=== PATIENT | male | born 1945 | race Caucasian/White ===

== ENCOUNTER 2022-05-24 19:12 | Inpatient (IN) ==
[2022-05-24] MEDS ORDERED: ACETAMINOPHEN 325 MG TABLET PO ONE (19:30)
[2022-05-24 20:01] LABS: POC Calcium, Ionized 1.05 (1.16-1.32); POC Potassium 2.8 (3.3-5.1)
--- NOTE | 2022-05-24 20:41 | Emergency Department Note ---
HPI General Chief complaint: Fever Stated complaint: Post op fever Time Seen by Provider: 05/24/22 19:27 Source: EMS Mode of arrival: EMS Limitations: physical limitation History of Present Illness HPI Narrative: Narrative: This is a pleasant 76-year-old male that presents emergency department with his daughter and with concerns of fever and confusion. The patient had a left total hip replacement done by Dr. Santana yesterday he stayed the night was discharged this morning and developed a fever he started getting a little confused according to the and daughter. He has been having generalized weakness where they had to call EMS multiple times since they were unable to get him off the toilet since he was so weak he could not stand up on his own. This was not due to increased pain in his left hip this was all due to his muscle weakness. He has been having a fever of about 101 at home. He a lso reports that since the fall he had COVID recovered but had a chronic cough he had white clear sputum for a while but within the last 2 months or so he has noticed that the cough has a sputum that is more greenish-yellow. Patient also has been urinating a lot more today as well. He denies chest pain or trouble breathing abdominal pain he has had some nausea but no vomiting. He denies dysuria or urinary urgency. No diarrhea no black or bloody stools. Related Data Home Medications Medication Instructions Recorded Confirmed cholecalciferol (vitamin D3) 25 2,000 unit PO QDAY 11/29/15 05/23/22 mcg (1,000 unit) tablet docusate sodium 100 mg capsule 100 - 200 mg PO DAILYP PRN 11/29/15 05/23/22 CONSTIPATION glucosamine HCl 1,500 mg tablet 3,000 mg PO QDAY 11/29/15 05/23/22 hydrocodone 7.5 mg-acetaminophen 1 tab PO BIDP PRN Pain 11/29/15 05/23/22 325 mg tablet lisinopril 10 mg tablet 10 mg PO QDAY 11/29/15 05/23/22 nitroglycerin 0.4 mg sublingual 0.4 mg sublingual Q5M PRN Angina 11/29/1505/23 tablet (Nitrostat) olanzapine 2.5 mg tablet 2.5 mg PO QHS 10/08/16 05/23/22 primidone 50 mg tablet 50 mg PO TID 06/03/17 05/23/22 potassium chloride 10 mEq 10 meq PO BIDCC 06/04/18 05/23/22 capsule,extended release rosuvastatin 20 mg tablet 20 mg PO QDAY 06/28/20 05/23/22 hydrochlorothiazide 25 mg tablet 25 mg PO BID@0800,1200 06/07/21 05/23/22 sertraline 100 mg tablet 200 mg PO QAM 06/07/21 05/23/22 cetirizine 10 mg tablet (Zyrtec) 10 mg PO QDAY PRN Allergic Symptoms 08/08/21 05/23/22 fiber 2 cap PO QHS SUPPLEMENT 08/08/21 05/23/22 gabapentin 400 mg capsule 400 mg PO BID@0800,1200 08/08/21 05/23/22 gabapentin 400 mg capsule 800 mg PO QHS 08/08/21 05/23/22 melatonin 10 mg tablet 20 mg PO HS PRN Sleep 08/08/21 05/23/22 multivitamin 1 cap PO DAILY 08/08/21 05/23/22 acetaminophen 325 mg chewable 650 mg PO Q4-6HP PRN Pain 01/30/22 05/23/22 tablet tamsulosin 0.4 mg capsule 0.4 mg PO BID 05/15/22 05/23/22 warfarin 7.5 mg tablet 7.5 mg PO DAILY 05/15/22 05/23/22 Previous Rx's Medication Instructions Recorded mirabegron 50 mg tablet,extended 50 mg PO Q24H #30 tabs 05/08/22 release 24 hr hydrocodone 10 mg-acetaminophen 1 - 2 tab PO Q4H PRN Pain #30 tabs 05/23/22 325 mg tablet warfarin 4 mg tablet 4 mg PO QDAY #5 tabs 05/23/22 Allergies Allergy/AdvReac Type Severity Reaction Status Date / Time naproxen Allergy Unknown Unknown Verified 05/24/22 19:23 propranolol Allergy Unknown Unknown Verified 05/24/22 19:23 simvastatin Allergy Unknown Unknown Verified 05/24/22 19:23 diltiazem AdvReac Mild Other Verified 05/24/22 19:23 metoprolol AdvReac Mild Fatigued Verified 05/24/22 19:23 morphine AdvReac Mild Hallucinati Verified 05/24/22 19:23 ng tape (adhesive & tape) AdvReac Mild Other Uncoded 05/15/22 09:05 Review of Systems ROS ROS Narrative: Narrative: All systems ED: reviewed and negative except as stated. [facility] Narrative Patient History Narrative: Narrative: Medical/Surgical/Family History All Active Problems (Updated 05/24/22 @ 22:10 by Oren Tinoco PA-C) Pneumonia (Acute) S/P total hip arthroplasty (Acute) BPH (benign prostatic hypertrophy) with urinary obstruction (Chronic) HTN (hypertension) (Chronic) CAD (coronary artery disease) (Chronic) History of attempted suicide (Chronic) Overweight (Chronic) Bilateral hand pain (Chronic) Kidney stones (Chronic) Hypertension, essential (Chronic) Hyperlipidemia, mixed (Chronic) Reactive hypoglycemia (Chronic) Arthralgia (Chronic) Cardiomegaly (Chronic) Cyst and pseudocyst of pancreas (Chronic) Chronic pain syndrome (Chronic) Disc degeneration, lumbar (Chronic) Shoulder pain, right (Chronic) Upper extremity pain (Chronic) DJD (degenerative joint disease), cervical (Chronic) Polymyalgia rheumatica (Chronic) Pain in joint, foot, left (Chronic) Bilateral knee pain (Chronic) Voiding dysfunction (Chronic) Urinary hesitancy (Chronic) Other signs and symptoms involving cognition (Chronic) Actinic keratosis (Chronic) Headache (Chronic) GERD (gastroesophageal reflux disease) (Chronic) Facial flushing (Chronic) Major depression, recurrent (Chronic) Hx of myocardial infarction (Chronic) History of skin cancer (Chronic) Left hand pain (Chronic) Urinary urgency (Chronic) Lightheadedness (Chronic) Depression (Chronic) PVC (premature ventricular contraction) (Chronic) Pneumonia (Chronic) Myocardial infarction (Chronic) DVT (deep venous thrombosis) (Chronic) BCC (basal cell carcinoma of skin) (Chronic) Constipation (Chronic) Lumbar back pain (Chronic) Pain, foot, left, chronic (Chronic) Panic disorder (Chronic) Calcium nephrolithiasis (Chronic) Gout (Chronic) Essential and other specified forms of tremor (Chronic) Degeneration of lumbar or lumbosacral intervertebral disc (Chronic) Osteoarthrosis (Chronic) Mcgregor's neuroma (Chronic) Weak urinary stream (Chronic) Uric acid nephrolithiasis (Chronic) SCC (squamous cell carcinoma) (Chronic) Pain in right hip (Chronic) Carpal tunnel syndrome of left wrist (Chronic) Radiculopathy, thoracolumbar region (Chronic) Right knee pain (Chronic) Degenerative joint disease of right hip (Chronic) Degenerative joint disease of right knee (Chronic) Chronic intractable pain (Chronic) Low back pain (Chronic) Urgency incontinence (Chronic) Hematuria, microscopic (Chronic) OAB (overactive bladder) (Chronic) SOB (shortness of breath) (Chronic) Anemia (Chronic) Anxiety (Chronic) Arthritis (Chronic) Back pain (Chronic) Cataract (Chronic) Diverticulitis (Chronic) Edema (Chronic) Fractures (Chronic) Heart murmur (Chronic) History of blood transfusion (Chronic) Hard of hearing (Chronic) History of blood clots (Chronic) History of migraine headaches (Chronic) Pancreatic cyst (Chronic) Prostate enlargement (Chronic) PTSD (post-traumatic stress disorder) (Chronic) Pulmonary emboli (Chronic) Wears glasses (Chronic) Chronic cough (Acute) History of COVID-19 (Chronic) Deep vein thrombosis (Acute) Restrictive lung disease (Chronic) Nocturnal hypoxia (Chronic) Incomplete bladder emptying (Chronic) Left hip pain (Chronic) Deep vein blood clot of left lower extremity (Chronic) Fatigue (Chronic) Medical History Actinic keratosis Anemia Anxiety Arthralgia Arthritis Back pain BCC (basal cell carcinoma of skin) right rad wrist exc 04/07/10 left clavicle exc 06/03/[address]@ Bilateral hand pain Bilateral knee pain BPH (benign prostatic hypertrophy) with urinary obstruction CAD (coronary artery disease) Calcium nephrolithiasis Cardiomegaly Carpal tunnel syndrome of left wrist Cataract Chronic cough Chronic intractable pain Chronic pain syndrome Constipation with the pain medication Cyst and pseudocyst of pancreas Deep vein blood clot of left lower extremity Deep vein thrombosis Degeneration of lumbar or lumbosacral intervertebral disc Degenerative joint disease of right hip Degenerative joint disease of right knee Depression Hospitalized for depression in 2015. Previous meds include nortriptyline, prozac, bupropion, serzone, ability, imipramine. Disc degeneration, lumbar with neurological manifestation Diverticulitis DJD (degenerative joint disease), cervical with neuropathy DVT (deep venous thrombosis) and pulmonary embolus-post op complication-treated with thrombolysis and vena cava filter Edema Essential and other specified forms of tremor Facial flushing Fatigue Fractures Right great toe GERD (gastroesophageal reflux disease) Gout Hard of hearing Bilateral hearing aids Headache Heart murmur Comes and goes Hematuria, microscopic History of attempted suicide History of blood clots Post IVC filter reportedly removed. History of blood transfusion History of COVID-19 History of migraine headaches History of skin cancer HTN (hypertension) Hx of myocardial infarction Hyperlipidemia, mixed Hypertension, essential Kidney stones Left hand pain Left hip pain Lightheadedness Low back pain Lumbar back pain Major depression, recurrent Severe Mcgregor's neuroma Myocardial infarction Nocturnal hypoxia OAB (overactive bladder) Osteoarthrosis Other signs and symptoms involving cognition Overweight Pain in joint, foot, left Pain in right hip Pain, foot, left, chronic Pancreatic cyst Panic disorder Pneumonia Polymyalgia rheumatica Prostate enlargement PTSD (post-traumatic stress disorder) Pulmonary emboli PVC (premature ventricular contraction) Benign isolated 2014 Radiculopathy, thoracolumbar region Reactive hypoglycemia Restrictive lung disease Right knee pain SCC (squamous cell carcinoma) Right forearm exc 12/17/09 Inaifu [address] z[address]omatic arch [address]2 x 2 exc 03/08/11 Lt pre auric exc 06/08/13 Shoulder pain, right SOB (shortness of breath) Upper extremity pain Urgency incontinence Uric acid nephrolithiasis Urinary hesitancy Urinary urgency Voiding dysfunction Weak urinary stream Wears glasses Surgical History History of arthroscopy of left shoulder History of cardiac catheterization History of carpal tunnel release Right Wrist History of carpal tunnel surgery Left hand 2015 History of cholecystectomy History of colonoscopy 07/2010- repeat in 10 years History of cystoscopy History of esophageal dilatation History of lithotripsy History of prostate surgery x 2-one complicated by DVT and delayed bleed from anticoagulation History of surgery Repair herniated lumbar disc 1972 History of surgery 03/2015 anterior disecectomy History of surgery Bilateral foraminotomy C5-6 and C6-7 with fusion History of surgery Repair herniated lumbar disc 1971, 1979 History of surgery Urolithotomy History of surgery Removal of Precancerous Skin Cells from Left Ear 05/2016. Also from face, neck and back History of surgery Fissurectomy History of surgery SCS perm History of surgery Vena Cava filter placement History of tonsillectomy History of transurethral resection of prostate 2013 History of umbilical hernia repair Status post endoscopic retrograde cholangiopancreatography Status post excision of Mcgregor's neuroma 4 surgeries, left foot - chronic pain as a result Family History Family/Other Hypertension CAD (coronary artery disease) Diabetes mellitus, type II Mother Depression Hypertension CAD (coronary artery disease) Heart failure Daughter Depression Thyroid disease Father CAD (coronary artery disease) Blood clot in vein Social History Smoking Status: Never smoker Alcohol Intake Frequency: former alcohol drinker Substance Use: does not use Exam Narrative Narrative: Narrative: General: Alert, in no acute distress Head: No trauma normocephalic Eyes: PERRLA, EOMs intact no scleral icterus or scleral injection Neck: Full range of motion, no midline tenderness ENT: Moist mucous membranes, uvula is midline. No sign of peritonsillar abscess or Cheikh's angina. Cardiovascular: Regular rate and rhythm no murmur Respiratory: Mild tachypnea, there is a bilateral lower lobe Rales. Mild tachypnea, no respiratory distress Abdomen pelvis: Abdomen is soft and nontender to palpation. There is no guarding no rebound tenderness. Negative Colmenares sign. No tenderness over McBurney's point. Neuro: Patient is alert and oriented x3 Psych: Normal affect, normal mood Skin: Warm, no rash, normal color Extremity: I did attempt to look at the incision of the left hip which is covered with a bandage they were told not to take it off. I do not see any erythema extending from underneath the bandage. Back: Negative CVA tenderness bilaterally. General Limitations: physical limitation Course Vital Signs Vital signs: Vital Signs Temperature 101.3 F H 05/24/22 19:18 Pulse Rate 96 H 05/24/22 19:18 Respiratory Rate 18 05/24/22 19:18 Blood Pressure 126/60 05/24/22 19:18 Pulse Oximetry (%) 95 05/24/22 19:18 Oxygen Delivery Method Room Air 05/24/22 19:18 Temperature 101.3 F H 05/24/22 19:56 Pulse Rate 85 05/24/22 20:01 Respiratory Rate 18 05/24/22 19:18 Blood Pressure 114/52 05/24/22 20:01 Pulse Oximetry (%) 96 05/24/22 20:01 Oxygen Delivery Method Room Air 05/24/22 19:18 MDM MDM Narrative Medical decision making narrative: Narrative: Differential diagnosis: UTI, pneumonia, sepsis, postoperative infection Independent lab ordered and reviewed by me: CBC shows leukocytosis at nearly 17,000 with left shift patient has a slightly alkalotic on VBG The [id number] Chem-8 shows mild hypokalemia at 2.8. [id number] glucose 178 UA does not show any sign of infection Rapid influenza and COVID negative Medications ordered: 1 L of normal saline Tylenol Rocephin and azithromycin Chest x-ray shows bilateral lower lobe consolidations left worse than right on my read. Disposition decision making CURB-65 Score for Pneumonia Severity from [email or web address] on 05/24/2022 All calculations should be rechecked by clinician prior to use RESULT SUMMARY: 3 points Severe risk group: 14.0% 30-day mortality. Consider inpatient treatment with possible intensive care admission. INPUTS: Confusion > 1 = Yes BUN >19 mg/dL (>7 mmol/L urea) > 0 = No Respiratory Rate &ge;30 > 0 = No Systolic BP <90 mmHg or Diastolic BP &le;60 mmHg > 1 = Yes Age &ge;65 > 1 = Yes With the patient's confusion hypotension and age the patient is in a high risk group for pneumonia going home. For that reason we will admit the patient. He is having some low blood pressure which we have started a liter of normal saline as well. We have also started Rocephin and azithromycin for community-acquired pneumonia. I spoke with Dr. Feliciano the hospitalist and he agreed to admit the patient for further evaluation and treatment of pneumonia. He will be sent to the PCU. Lab Data 05/24/22 19:41 Labs: Lab Results 05/24/22 05/24/22 Range/Units 19:54 19:58 POC Hct 34.0 L (41-55) POC VBG pH 7.51 H (7.32-7.42) POC VBG pCO2 at Temp 32.5 L (41-51) POC VBG pO2 61 H (25-40) POC VBG HCO3 26.1 (24-28) POC VBG Total CO2 27.0 (25-29) POC Venous O2 Sat 93.0 H (40-70) POC VBG Base Excess 3.0 H (-2-2) VBG Lactic Acid 1.4 (0.5-2) POC Sodium 137 (133-145) POC Potassium 2.8 L* (3.3-5.1) POC Chloride 100 (96-108) POC Total CO2 26.0 (22-30) POC BUN 12 (6-20) POC Creatinine 1.0 (0.6-1.2) POC Glucose 178 H (70-105) POC WB Ioniz Calcium 1.05 L (1.16-1.32) ED POC Tests ED POC Tests: TAY - Influenza A Negative TAY - Influenza B Negative TAY - SARS Antigen Negative EKG Data EKG #1: EKG results narrative: ECG shows a sinus rhythm 85 beats minute, left axis deviation, normal CA interval narrow QRS and QTc is prolonged. There is no ST segment deviations or hyperacute T waves. My interpretation is sinus rhythm with PACs. Discharge Plan Patient/Caregiver Discharge Instructions Pt seen by INFECTION PREVENTION COORDINATOR/PA only: Yes Clinical Impression: Pneumonia Patient Disposition: Xfer As Inpt ([facility]) Condition: Serious Follow up with: Stefany Lord MD [Primary Care Provider] - Prescriptions: No Action lisinopril 10 mg tablet 10 mg PO QDAY hydrocodone-acetaminophen 7.5-325 mg tablet 1 tab PO BIDP PRN (Reason: Pain) Patient Comments: 1 tab PO BID PRN and at HS nitroglycerin [Nitrostat] 0.4 mg tablet, sublingual 0.4 mg SUBLINGUAL Q5M PRN (Reason: Angina) Patient Comments: 0.4 mg SUBLINGUAL PRN chest pain, can repeat at 5 min intervals to max of 3, ER if pain persists docusate sodium 100 mg capsule 100 - 200 mg PO DAILYP PRN (Reason: CONSTIPATION) Patient Comments: 1-2 capsules PO QDAY PRN cholecalciferol (vitamin D3) 1,000 unit tablet 2,000 unit PO QDAY glucosamine HCl 1,500 mg tablet 3,000 mg PO QDAY sertraline 100 mg tablet 200 mg PO QAM acetaminophen 325 mg tablet,chewable 650 mg PO Q4-6HP PRN (Reason: Pain) gabapentin 400 mg Capsule 400 mg PO BID@0800,1200 gabapentin 400 mg Capsule 800 mg PO QHS cetirizine [Zyrtec] 10 mg Tablet 10 mg PO QDAY PRN (Reason: Allergic Symptoms) multivitamin Capsule 1 cap PO DAILY fiber Capsule 2 cap PO QHS melatonin 10 mg Tablet 20 mg PO HS MDD 1 PRN (Reason: Sleep) warfarin 7.5 mg Tablet 7.5 mg PO DAILY tamsulosin 0.4 mg capsule 0.4 mg PO BID hydrocodone-acetaminophen 10-325 mg tablet 1 - 2 tab PO Q4H PRN (Reason: Pain) Qty: 30 0RF warfarin 4 mg tablet 4 mg PO QDAY Qty: 5 0RF Rx Instructions: take for 5 days post op, then may resume home dose regimen of 7.5 mg. olanzapine 2.5 mg tablet 2.5 mg PO QHS primidone 50 mg tablet 50 mg PO TID hydrochlorothiazide 25 mg tablet 25 mg PO BID@0800,1200 potassium chloride 10 mEq capsule, extended release 10 meq PO BIDCC rosuvastatin 20 mg tablet 20 mg PO QDAY mirabegron 50 mg tablet extended release 24 hr 50 mg PO Q24H Qty: 30 6RF
[2022-05-24] MEDS ORDERED: 0.9 % SODIUM CHLORIDE 1,000 ML IV ONE ×2 (21:09→22:08)
[2022-05-24 21:43] LABS: Basophils # (Auto) 0.04 K/mcL (0.00-0.30); Basophils % (Auto) 0.2 % (0.0-2.0); Eosinophils # (Auto) 0.04 K/mcL (0.00-0.70); Eosinophils % (Auto) 0.2 % (0.0-7.0); Hematocrit 32.7 % (40.1-51.0); Hemoglobin 10.9 g/dL (13.7-17.5); Lymphocytes # (Auto) 2.47 K/mcL (1.50-4.80); Lymphocytes % (Auto) 14.7 % (15.5-49.0); Mean Cell Volume 91.3 fL (80.0-100.0); Mean Corpuscular HGB Conc 33.3 g/dL (31.0-36.0); Mean Platelet Volume 10.6 fL (8.8-12.5); Monocytes # (Auto) 1.26 K/mcL (0.10-0.90); Monocytes % (Auto) 7.5 % (1.0-12.0); Neutrophils % (Auto) 76.2 % (38.0-78.0); Platelet Count 185 K/mcL (140-440); RBC 3.58 M/mcL (4.63-6.08); Red Cell Distribution Width 13.5 % (11.5-14.5); WBC 16.9 K/mcL (4.5-11.0)
[2022-05-24] MEDS ORDERED: cefTRIAXone 1 GM VIAL IV ONE (21:47)
[2022-05-24] MEDS ORDERED: AZITHROMYCIN 500 MG in DEXTROSE 5% IN WATER 250 ML IV ONE (21:47)
[2022-05-24 21:49] LABS: Appearance,Urine HAZY (Clear); Bilirubin,Urine Negative (Negative); Color,Urine YELLOW; Culture Indicated,Urine No; Glucose,Urine (UA) Negative (Negative); Ketones,Urine Negative (Negative); Leukocyte Esterase,Urine Negative /uL (Negative); Nitrate,Urine Negative (Negative); Protein,Urine Negative (Negative); Specific Gravity,Urine 1.016 (1.000-1.035); Urine Blood Negative (Negative); Urobilinogen,Urine Negative
[2022-05-24 21:52] LABS: ALT/SGPT 14 U/L (<40); AST/SGOT 32 U/L (<40); Albumin 3.6 gm/dL (3.2-5.2); Alkaline Phosphatase 84 U/L (39-117); Bilirubin,Direct < 0.2 mg/dL (0-0.3); Bilirubin,Total 0.5 mg/dL (0.1-1.0); Globulin 2.7 gm/dL (2.2-3.7)
[2022-05-24 22:27] LABS: Prothrombin Time 13.9 sec (11.9-14.5)
--- NOTE | 2022-05-24 22:54 | Internal Med History&Physical ---
HPI History of Present Illness Patient information: Note initiated : 05/24/22 at 10:51 pm Service Date, if different from initiated Date: [] Patient: Yunior Jo 76 y/o M admitted on for Post op fever. Chief Complaint: [weakness] Chief complaint: weakness History of present illness: Mr. 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 Santana on 05/23 who was discharged home the next day on 05/24, presenting with general body weakness. Patient was being discharged from earlier today from the surgical service feeling good but once he returned home, he started to feel general body weakness. He also is complaining of productive cough with yellow sputum for the last month or 2. He is now also complaining of shortness of breath. He is complaining of fever and chills. He is also committing of confusions. Vital signs at ED presentation significant for fever with Tmax 38.5, as well as soft blood pressure as low as 96 over 45 mmHg. Labs significant for leukocytosis with WBC 16.9. Serum lactic acid 1.4. Serum potassium level 2.8. Serum procalcitonin level 0.24. COVID screening negative. Chest x-ray preliminary result showing signs of bacterial pneumonia. Admission request is called for hospital-acquired pneumonia with associated clinical sepsis. Constitutional Constitutional: Present chills, fever(s) and weakness; Absent excessive sweating or fatigue EENT Eyes: Absent blurry vision, change in vision, loss of vision or other visual disturbances Ears: Absent decreased hearing or tinnitus Nose, mouth and throat: Absent abnormal hearing, dry mouth, headache(s), nasal congestion or sore throat Cardiovascular Cardiovascular: Absent chest pain, chest pain at rest, edema, irregular heart rhythm or palpatations Respiratory Respiratory: Present cough, dyspnea, wheezing and excessive phlegm production Gastrointestinal Gastrointestinal: Absent abdominal pain, constipation, diarrhea, nausea or vomiting Musculoskeletal Musculoskeletal: Present arthralgias; Absent back pain, deformity, limited range of motion, muscle cramps, muscle weakness or numbness Integumentary Integumentary: Absent lesions, rash or wounds Neurological Neurological: Absent focal weakness, headache(s) or numbness Psychiatric Psychiatric: Absent anxiety, depression or hallucinations PFSH PFSH All Active Problems (Updated 05/24/22 @ 22:58 by Tobi Feliciano MD) Hypokalemia (Acute) Anemia, normocytic normochromic (Acute) HAP (hospital-acquired pneumonia) (Acute) Pneumonia (Acute) S/P total hip arthroplasty (Acute) BPH (benign prostatic hypertrophy) with urinary obstruction (Chronic) HTN (hypertension) (Chronic) CAD (coronary artery disease) (Chronic) History of attempted suicide (Chronic) Overweight (Chronic) Bilateral hand pain (Chronic) Kidney stones (Chronic) Hypertension, essential (Chronic) Hyperlipidemia, mixed (Chronic) Reactive hypoglycemia (Chronic) Arthralgia (Chronic) Cardiomegaly (Chronic) Cyst and pseudocyst of pancreas (Chronic) Chronic pain syndrome (Chronic) Disc degeneration, lumbar (Chronic) Shoulder pain, right (Chronic) Upper extremity pain (Chronic) DJD (degenerative joint disease), cervical (Chronic) Polymyalgia rheumatica (Chronic) Pain in joint, foot, left (Chronic) Bilateral knee pain (Chronic) Voiding dysfunction (Chronic) Urinary hesitancy (Chronic) Other signs and symptoms involving cognition (Chronic) Actinic keratosis (Chronic) Headache (Chronic) GERD (gastroesophageal reflux disease) (Chronic) Facial flushing (Chronic) Major depression, recurrent (Chronic) Hx of myocardial infarction (Chronic) History of skin cancer (Chronic) Left hand pain (Chronic) Urinary urgency (Chronic) Lightheadedness (Chronic) Depression (Chronic) PVC (premature ventricular contraction) (Chronic) Pneumonia (Chronic) Myocardial infarction (Chronic) DVT (deep venous thrombosis) (Chronic) BCC (basal cell carcinoma of skin) (Chronic) Constipation (Chronic) Lumbar back pain (Chronic) Pain, foot, left, chronic (Chronic) Panic disorder (Chronic) Calcium nephrolithiasis (Chronic) Gout (Chronic) Essential and other specified forms of tremor (Chronic) Degeneration of lumbar or lumbosacral intervertebral disc (Chronic) Osteoarthrosis (Chronic) Mcgrgeor's neuroma (Chronic) Weak urinary stream (Chronic) Uric acid nephrolithiasis (Chronic) SCC (squamous cell carcinoma) (Chronic) Pain in right hip (Chronic) Carpal tunnel syndrome of left wrist (Chronic) Radiculopathy, thoracolumbar region (Chronic) Right knee pain (Chronic) Degenerative joint disease of right hip (Chronic) Degenerative joint disease of right knee (Chronic) Chronic intractable pain (Chronic) Low back pain (Chronic) Urgency incontinence (Chronic) Hematuria, microscopic (Chronic) OAB (overactive bladder) (Chronic) SOB (shortness of breath) (Chronic) Anemia (Chronic) Anxiety (Chronic) Arthritis (Chronic) Back pain (Chronic) Cataract (Chronic) Diverticulitis (Chronic) Edema (Chronic) Fractures (Chronic) Heart murmur (Chronic) History of blood transfusion (Chronic) Hard of hearing (Chronic) History of blood clots (Chronic) History of migraine headaches (Chronic) Pancreatic cyst (Chronic) Prostate enlargement (Chronic) PTSD (post-traumatic stress disorder) (Chronic) Pulmonary emboli (Chronic) Wears glasses (Chronic) Chronic cough (Acute) History of COVID-19 (Chronic) Deep vein thrombosis (Acute) Restrictive lung disease (Chronic) Nocturnal hypoxia (Chronic) Incomplete bladder emptying (Chronic) Left hip pain (Chronic) Deep vein blood clot of left lower extremity (Chronic) Fatigue (Chronic) Medical History Actinic keratosis Anemia Anxiety Arthralgia Arthritis Back pain BCC (basal cell carcinoma of skin) right rad wrist exc 04/07/10 left clavicle exc 06/03/[address]@ Bilateral hand pain Bilateral knee pain BPH (benign prostatic hypertrophy) with urinary obstruction CAD (coronary artery disease) Calcium nephrolithiasis Cardiomegaly Carpal tunnel syndrome of left wrist Cataract Chronic cough Chronic intractable pain Chronic pain syndrome Constipation with the pain medication Cyst and pseudocyst of pancreas Deep vein blood clot of left lower extremity Deep vein thrombosis Degeneration of lumbar or lumbosacral intervertebral disc Degenerative joint disease of right hip Degenerative joint disease of right knee Depression Hospitalized for depression in 2014. Previous meds include nortriptyline, prozac, bupropion, serzone, ability, imipramine. Disc degeneration, lumbar with neurological manifestation Diverticulitis DJD (degenerative joint disease), cervical with neuropathy DVT (deep venous thrombosis) and pulmonary embolus-post op complication-treated with thrombolysis and vena cava filter Edema Essential and other specified forms of tremor Facial flushing Fatigue Fractures Right great toe GERD (gastroesophageal reflux disease) Gout Hard of hearing Bilateral hearing aids Headache Heart murmur Comes and goes Hematuria, microscopic History of attempted suicide History of blood clots Post IVC filter reportedly removed. History of blood transfusion History of COVID-19 History of migraine headaches History of skin cancer HTN (hypertension) Hx of myocardial infarction Hyperlipidemia, mixed Hypertension, essential Kidney stones Left hand pain Left hip pain Lightheadedness Low back pain Lumbar back pain Major depression, recurrent Severe Mcgregor's neuroma Myocardial infarction Nocturnal hypoxia OAB (overactive bladder) Osteoarthrosis Other signs and symptoms involving cognition Overweight Pain in joint, foot, left Pain in right hip Pain, foot, left, chronic Pancreatic cyst Panic disorder Pneumonia Polymyalgia rheumatica Prostate enlargement PTSD (post-traumatic stress disorder) Pulmonary emboli PVC (premature ventricular contraction) Benign isolated 2014 Radiculopathy, thoracolumbar region Reactive hypoglycemia Restrictive lung disease Right knee pain SCC (squamous cell carcinoma) Right forearm exc 12/17/09 In[place] [address] z[address]omatic arch [address]2 x 2 exc 03/08/11 Lt pre auric exc 06/08/13 Shoulder pain, right SOB (shortness of breath) Upper extremity pain Urgency incontinence Uric acid nephrolithiasis Urinary hesitancy Urinary urgency Voiding dysfunction Weak urinary stream Wears glasses Surgical History History of arthroscopy of left shoulder History of cardiac catheterization History of carpal tunnel release Right Wrist History of carpal tunnel surgery Left hand 2016 History of cholecystectomy History of colonoscopy 07/2010- repeat in 10 years History of cystoscopy History of esophageal dilatation History of lithotripsy History of prostate surgery x 2-one complicated by DVT and delayed bleed from anticoagulation History of surgery Repair herniated lumbar disc 1972 History of surgery 03/2015 anterior disecectomy History of surgery Bilateral foraminotomy C5-6 and C6-7 with fusion History of surgery Repair herniated lumbar disc 1971, 1979 History of surgery Urolithotomy History of surgery Removal of Precancerous Skin Cells from Left Ear 05/2016. Also from face, neck and back History of surgery Fissurectomy History of surgery SCS perm History of surgery Vena Cava filter placement History of tonsillectomy History of transurethral resection of prostate 2013 History of umbilical hernia repair Status post endoscopic retrograde cholangiopancreatography Status post excision of Mcgregor's neuroma 4 surgeries, left foot - chronic pain as a result Family History Family/Other Hypertension CAD (coronary artery disease) Diabetes mellitus, type II Mother Depression Hypertension CAD (coronary artery disease) Heart failure Daughter Depression Thyroid disease Father CAD (coronary artery disease) Blood clot in vein Social History marital status: education level: college occupational status: retired occupation: Served in [employer]; [place] physical activity: other details: stationary bicycling smoking status: Never smoker alcohol intake frequency: former alcohol drinker substance use type: does not use MEDS/ALLERGIES Home Medications and Allergies Home Medications Medication Instructions Recorded Confirmed Type cholecalciferol (vitamin D3) 25 2,000 unit PO QDAY 11/29/15 05/23/22 History mcg (1,000 unit) tablet docusate sodium 100 mg capsule 100 - 200 mg PO DAILYP PRN 11/29/15 05/23/22 History CONSTIPATION glucosamine HCl 1,500 mg tablet 3,000 mg PO QDAY 11/29/15 05/23/22 History hydrocodone 7.5 mg-acetaminophen 1 tab PO BIDP PRN Pain 11/29/15 05/23/22 History 325 mg tablet lisinopril 10 mg tablet 10 mg PO QDAY 11/29/15 05/23/22 History nitroglycerin 0.4 mg sublingual 0.4 mg sublingual Q5M PRN Angina 11/29/15 05/23/22 History tablet (Nitrostat) olanzapine 2.5 mg tablet 2.5 mg PO QHS 10/08/16 05/23/22 History primidone 50 mg tablet 50 mg PO TID 06/03/17 05/23/22 History potassium chloride 10 mEq 10 meq PO BIDCC 06/04/18 05/23/22 History capsule,extended release rosuvastatin 20 mg tablet 20 mg PO QDAY 06/28/20 05/23/22 History hydrochlorothiazide 25 mg tablet 25 mg PO BID@0800,1200 06/07/21 05/23/22 History sertraline 100 mg tablet 200 mg PO QAM 06/07/21 05/23/22 History cetirizine 10 mg tablet (Zyrtec) 10 mg PO QDAY PRN Allergic Symptoms 08/08/21 05/23/22 History fiber 2 cap PO QHS SUPPLEMENT 08/08/21 05/23/22 History gabapentin 400 mg capsule 400 mg PO BID@0800,1200 08/08/21 05/23/22 History gabapentin 400 mg capsule 800 mg PO QHS 08/08/21 05/23/22 History melatonin 10 mg tablet 20 mg PO HS PRN Sleep 08/08/21 05/23/22 History multivitamin 1 cap PO DAILY 08/08/21 05/23/22 History acetaminophen 325 mg chewable 650 mg PO Q4-6HP PRN Pain 01/30/22 05/23/22 History tablet mirabegron 50 mg tablet,extended 50 mg PO Q24H #30 tabs 05/08/22 05/23/22 Rx release 24 hr tamsulosin 0.4 mg capsule 0.4 mg PO BID 05/15/22 05/23/22 History warfarin 7.5 mg tablet 7.5 mg PO DAILY 05/15/22 05/23/22 History hydrocodone 10 mg-acetaminophen 1 - 2 tab PO Q4H PRN Pain #30 tabs 05/23/22 Rx 325 mg tablet warfarin 4 mg tablet 4 mg PO QDAY #5 tabs 05/23/22 Rx Allergies Allergy/AdvReac Type Severity Reaction Status Date / Time naproxen Allergy Unknown Unknown Verified 05/24/22 19:23 propranolol Allergy Unknown Unknown Verified 05/24/22 19:23 simvastatin Allergy Unknown Unknown Verified 05/24/22 19:23 diltiazem AdvReac Mild Other Verified 05/24/22 19:23 metoprolol AdvReac Mild Fatigued Verified 05/24/22 19:23 morphine AdvReac Mild Hallucinati Verified 05/24/22 19:23 ng tape (adhesive & tape) AdvReac Mild Other Uncoded 05/15/22 09:05 EXAM Constitutional Vitals: Temp Pulse Resp BP Pulse Ox O2 Del Method 38.5 C H 70 18 96/45 97 Room Air 05/24/22 19:56 05/24/22 22:16 05/24/22 19:18 05/24/22 22:16 05/24/22 22:16 05/24/22 19:18 General appearance: cooperative and no acute distress Head Head exam: Present atraumatic and normocephalic Eye Eye exam: Present EOMI and PERRL ENT ENT exam: Present mucous membranes moist, normal exam and normal external ear exam Additional comments: Nasal cannula in place Neck Neck exam: Present normal inspection; Absent lymphadenopathy, tenderness or th yromegaly Respiratory Respiratory exam: Present rhonchi and wheezes; Absent accessory muscle use or respiratory distress Cardiovascular Cardiovascular exam: Present normal rate and rhythm; Absent JVD GI/Abdominal GI/Abdominal exam: Present normal bowel sounds and soft; Absent organomegaly or tenderness Rectal Rectal exam: Present deferred Extremities Exam Extremities exam: Present normal capillary refill and tenderness; Absent full ROM or normal inspection Additional comments: Left lateral hip covered by surgical dressing Neurological Exam Neurological exam: Present alert, CN II-XII intact and oriented X3; Absent motor sensory deficit Psychiatric Psychiatric exam: Present normal affect and normal mood; Absent anxious or depressed Skin Skin exam: Present dry and intact DATA Data Completed and Pending Labs: Labs from last 24 hours 05/24/22 05/24/22 05/24/22 20:45 20:45 19:58 WBC RBC Hgb Hct POC Hct 34.0 L MCV MCH MCHC RDW Plt Count MPV Immature Gran % (Auto) Neut % (Auto) Lymph % (Auto) Armstrong % (Auto) Eos % (Auto) Baso % (Auto) Lymph # (Auto) Armstrong # (Auto) Eos # (Auto) Baso # (Auto) Immature Gran # Absolute Neutrophils PT 13.9 INR 1.0 POC VBG pH POC VBG pCO2 at Temp POC VBG pO2 POC VBG HCO3 POC VBG Total CO2 POC Venous O2 Sat POC VBG Base Excess VBG Lactic Acid POC Sodium 137 POC Potassium 2.8 L* POC Chloride 100 POC Total CO2 26.0 POC BUN 12 POC Creatinine 1.0 POC Glucose 178 H POC WB Ioniz Calcium 1.05 L Total Bilirubin Direct Bilirubin AST ALT Alkaline Phosphatase Total Protein Albumin Globulin Procalcitonin Urine Color Yellow Urine Appearance Hazy A Urine pH 5.0 Ur Specific [place] 1.016 Urine Protein Negative Urine Glucose (UA) Negative Urine Ketones Negative Urine Occult Blood Negative Urine Nitrate Negative Urine Bilirubin Negative Urine Urobilinogen Negative Ur Leukocyte Esterase Negative Ur Culture Indicated? No 05/24/22 05/24/22 05/24/22 19:54 19:41 19:41 WBC RBC Hgb Hct POC Hct MCV MCH MCHC RDW Plt Count MPV Immature Gran % (Auto) Neut % (Auto) Lymph % (Auto) Armstrong % (Auto) Eos % (Auto) Baso % (Auto) Lymph # (Auto) Armstrong # (Auto) Eos # (Auto) Baso # (Auto) Immature Gran # Absolute Neutrophils PT INR POC VBG pH 7.51 H POC VBG pCO2 at Temp 32.5 L POC VBG pO2 61 H POC VBG HCO3 26.1 POC VBG Total CO2 27.0 POC Venous O2 Sat 93.0 H POC VBG Base Excess 3.0 H VBG Lactic Acid 1.4 POC Sodium POC Potassium POC Chloride POC Total CO2 POC BUN POC Creatinine POC Glucose POC WB Ioniz Calcium Total Bilirubin 0.5 Direct Bilirubin < 0.2 AST 32 ALT 14 Alkaline Phosphatase 84 Total Protein 6.3 Albumin 3.6 Globulin 2.7 Procalcitonin 0.24 H Urine Color Urine Appearance Urine pH Ur Specific [place] Urine Protein Urine Glucose (UA) Urine Ketones Urine Occult Blood Urine Nitrate Urine Bilirubin Urine Urobilinogen Ur Leukocyte Esterase Ur Culture Indicated? 05/24/22 19:41 WBC 16.9 H RBC 3.58 L Hgb 10.9 L Hct 32.7 L POC Hct MCV 91.3 MCH 30.4 MCHC 33.3 RDW 13.5 Plt Count 185 MPV 10.6 Immature Gran % (Auto) 1.2 H Neut % (Auto) 76.2 Lymph % (Auto) 14.7 L Armstrong % (Auto) 7.5 Eos % (Auto) 0.2 Baso % (Auto) 0.2 Lymph # (Auto) 2.47 Armstrong # (Auto) 1.26 H Eos # (Auto) 0.04 Baso # (Auto) 0.04 Immature Gran # 0.20 H Absolute Neutrophils 12.84 H PT INR POC VBG pH POC VBG pCO2 at Temp POC VBG pO2 POC VBG HCO3 POC VBG Total CO2 POC Venous O2 Sat POC VBG Base Excess VBG Lactic Acid POC Sodium POC Potassium POC Chloride POC Total CO2 POC BUN POC Creatinine POC Glucose POC WB Ioniz Calcium Total Bilirubin Direct Bilirubin AST ALT Alkaline Phosphatase Total Protein Albumin Globulin Procalcitonin Urine Color Urine Appearance Urine pH Ur Specific [place] Urine Protein Urine Glucose (UA) Urine Ketones Urine Occult Blood Urine Nitrate Urine Bilirubin Urine Urobilinogen Ur Leukocyte Esterase Ur Culture Indicated? A/P Assessment and plan (1) HAP (hospital-acquired pneumonia): Status: Acute (2) S/P total hip arthroplasty: Status: Acute (3) BPH (benign prostatic hypertrophy) with urinary obstruction: Status: Chronic (4) Hypertension, essential: Status: Chronic (5) Major depression, recurrent: Status: Chronic Comment: Severe (6) DVT (deep venous thrombosis): Status: Chronic Comment: and pulmonary embolus-post op complication-treated with thrombolysis and vena cava filter (7) Anemia, normocytic normochromic: Status: Acute (8) Hypokalemia: Status: Acute Sepsis Sepsis Identified: Yes Time Zero: . Narrative A/P Narrative: Assessment and Plans: 1. Hospital acquired pneumonia with clinical sepsis: Inpatient PCU Serial lactic acid Procalcitonin level Blood culture MRSA screening cbc w/ auto diff in the morning to trend WBC Supplemental oxygen therapy Vancomycin Zosyn s/p IV fluid bolus given in the ED, to be followed by NS@100cc/hr Physical therapy 2. h/o osteoarthritis s/p left total hip replacement Dr. Callahan on 05/23: Tylenol [place] Morphine Physical therapy 3. Depression/anxiety: Sertraline Olanzapine 4. h/o essential hypertension: Hold oral antihypertensive given clinical sepsis 5. BPH: Continue Flomax 6. h/o DVT, multiple: Coumadin Daily INR for Coumadin dosing, goal INR 2-3 7. Anemia, normocytic normochromic: cbc w/ auto diff in the morning to trend H/H 8. Hypokalemia: K rider 20mEq IV once, then KCl 20mEq PO BID starting in the morning of 05/25 CMP in the morning to trend serum potassium level Also check serum Mg level and replace if needed GI ppx: not currently indicated DVT ppx: Coumadin Code status: Full Prognosis: guarded Disposition: inpatient PCU; PT Time Spent With Patient Time: Total time spent is greater than 50% in coordination of care (as documented) at patient's floor/unit and/or counseling patient: Initial: Total time with patient: 55 - 74 minutes
[2022-05-25] MEDS ORDERED: SENNOSIDES 1 TABLET PO PRN (00:19)
[2022-05-25] MEDS ORDERED: IPRATROPIUM/ALBUTEROL 3 ML AMPUL.NEB NEB PRN (00:19)
[2022-05-25] MEDS ORDERED: guaiFENesin/DEXTROMETHORPHAN 5ML UD CUP PO PRN (00:19)
[2022-05-25] MEDS ORDERED: LACTULOSE 20 GM/30 ML ORAL.SOL PO PRN (00:19)
[2022-05-25] MEDS ORDERED: VANCOMYCIN PER PHARMACY IV ONE (00:19)
[2022-05-25] MEDS ORDERED: ONDANSETRON 4 MG/2 ML VIAL IV PRN (00:19)
[2022-05-25] MEDS ORDERED: POTASSIUM CHLORIDE 20 MEQ in DEXTROSE 5% IN WATER 250 ML IV ONE (00:19)
[2022-05-25] MEDS ORDERED: PIPERACILLIN SODIUM/TAZOBACTAM 3.375 GM VIAL IV ONE (00:26)
[2022-05-25] MEDS ORDERED: POTASSIUM CHLORIDE 20 MEQ/10 ML VIAL IV ONE (00:40)
[2022-05-25] MEDS: PIPERACILLIN SODIUM/TAZOBACTAM 3.375 GM in DEXTROSE 5% IN WATER 50 ML IV SCH ×5 (00:45→23:39)
[2022-05-25] MEDS: 0.9 % SODIUM CHLORIDE 1,000 ML IV SCH ×3 (02:05→21:31)
[2022-05-25] MEDS ORDERED: VANCOMYCIN 1,000 MG in 0.9 % SODIUM CHLORIDE 250 ML IV ONE (03:29)
[2022-05-25] MEDS: 0.9 % SODIUM CHLORIDE 10 ML SYRINGE IV SCH ×3 (05:43→21:31)
[2022-05-25 07:32] LABS: Basophils # (Auto) 0.05 K/mcL (0.00-0.30); Basophils % (Auto) 0.3 % (0.0-2.0); Eosinophils # (Auto) 0.15 K/mcL (0.00-0.70); Hematocrit 29.7 % (40.1-51.0); Hemoglobin 9.6 g/dL (13.7-17.5); Lymphocytes # (Auto) 3.47 K/mcL (1.50-4.80); Lymphocytes % (Auto) 22.4 % (15.5-49.0); Mean Cell Volume 93.1 fL (80.0-100.0); Mean Corpuscular HGB Conc 32.3 g/dL (31.0-36.0); Monocytes # (Auto) 1.43 K/mcL (0.10-0.90); Monocytes % (Auto) 9.2 % (1.0-12.0); Neutrophils % (Auto) 66.2 % (38.0-78.0); Platelet Count 153 K/mcL (140-440); RBC 3.19 M/mcL (4.63-6.08); Red Cell Distribution Width 13.5 % (11.5-14.5); WBC 15.5 K/mcL (4.5-11.0)
[2022-05-25] MEDS: ACETAMINOPHEN 325 MG TABLET PO PRN ×2 (07:33→17:23)
[2022-05-25] MEDS: POTASSIUM CHLORIDE 20 MEQ TABLET PO SCH ×2 (07:33→17:23)
[2022-05-25 07:45] LABS: INR 1.2 (0.9-1.1); Prothrombin Time 15.8 sec (11.9-14.5)
--- NOTE | 2022-05-25 07:49 | XRay Report ---
HISTORY: Postoperative fever after hip replacement performed yesterday FINDINGS: There are diffuse infiltrates throughout both lungs. The heart is moderately enlarged. No pleural effusion is seen. The heart has increased in size and the infiltrates have become worse since prior x-ray done on 11/27/21. IMPRESSION: Worsening cardiomegaly. Bilateral alveolar opacities. This could be due to pulmonary edema, pneumonia, drug reaction or combination of the above. Interpreted and Authenticated by: Dhiraj Nagy 05/25/22
[2022-05-25 08:18] LABS: ALT/SGPT 12 U/L (<40); AST/SGOT 27 U/L (<40); Albumin/Globulin Ratio 1.2 (1.0-2.3); Alkaline Phosphatase 72 U/L (39-117); Bilirubin,Total 0.6 mg/dL (0.1-1.0); Blood Urea Nitrogen 13 mg/dL (8-23); Calcium 7.9 mg/dL (8.6-10.4); Carbon Dioxide 28 mmol/L (22-30); Chloride 101 mmol/L (96-108); Globulin 2.6 gm/dL (2.2-3.7); Glomerular Filtration Rate 81; Glucose 117 mg/dL (70-105)
[2022-05-25] MEDS ORDERED: NITROGLYCERIN 0.4 MG TAB.SUBL SL PRN (09:23)
[2022-05-25] MEDS ORDERED: CETIRIZINE 10 MG TABLET PO PRN (09:23)
[2022-05-25] MEDS ORDERED: HYDROcodone/APAP (PP) 7.5/325MG TABLET (#4) PO PRN (09:23)
[2022-05-25] MEDS: DOCUSATE SODIUM 100 MG CAPSULE PO SCH ×2 (10:08→21:31)
--- NOTE | 2022-05-25 10:13 | Internal Med Progress Note ---
SUBJECTIVE Subjective Patient information: Note initiated : 05/25/22 at 10:06 am Service Date, if different from initiated Date: [] Patient: Yunior Jo 76 y/o M admitted on 05/24/22 for Post op fever. Chief Complaint: [] Interval history: Mr. 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 Santana on 05/23 who was discharged home the next day on 05/24, presenting with general body weakness. Patient was being discharged from earlier today from the surgical service feeling good but once he returned home, he started to feel general body weakness. He also is complaining of productive cough with yellow sputum for the last month or 2. He is now also complaining of shortness of breath. He is complaining of fever and chills. He is also committing of confusions. Vital signs at ED presentation significant for fever with Tmax 38.5, as well as soft blood pressure as low as 96 over 45 mmHg. Labs significant for leukocytosis with WBC 16.9. Serum lactic acid 1.4. Serum potassium level 2.8. Serum procalcitonin level 0.24. COVID screening negative. Chest x-ray preliminary result showing signs of bacterial pneumonia. Admission request is called for hospital-acquired pneumonia with associated clinical sepsis. 05/25: Fever with Tmax 38.6 overnight. Patient is currently on 2 L/min nasal cannula oxygen. MRSA screening negative. Blood culture no growth today. Patient is c oming of mild shortness of breath. Improving energy level. Fever and chills overnight. Mild to moderate left hip pain. Keep the patient in inpatient PCU. DC vancomycin while continuing Zosyn and IV fluid for hospital-acquired pneumonia with sepsis. Supplemental oxygen therapy titrate to achieve SPO2 above to or greater than 92%. Request pharmacy assistance for Coumadin dosing for history of recurrent DVT. Continue to provide narcotics as needed for left hip surgical pain control. Continue potassium oral replacement. Physical therapy and Occupational Therapy evaluation and treatment for placement planning. Constitutional Vitals: Vital Signs Temp Pulse Resp BP Pulse Ox O2 Del Method O2 Flow Rate 37.1 C 71 23 H 115/70 98 Nasal Cannula 2 05/25/22 08:18 05/25/22 09:04 05/25/22 09:04 05/25/22 09:04 05/25/22 09:04 05/25/22 05:01 05/25/22 05:01 Period Temp Pulse Resp BP Sys/Edwards Pulse Ox O2 Del Method O2 Flow Rate Last 24 Hr 36.6 C-38.6 C 63-96 18-30 75-129/44-99 95-100 Nasal Cannula- Room Air 2-2 Intake and Output 05/24/22 05/25/22 05/25/22 19:59 03:59 11:59 Intake Total 2400 780 Output Total 300 325 Balance 2100 455 Weight 93.44 kg 94.619 kg Intake & Output: Intake & Output 05/24/22 05/25/22 05/25/22 19:59 03:59 11:59 Intake Total 2400 780 Output Total 300 325 Balance 2100 455 Weight 93.44 kg 94.619 kg Intake: IV 2300 560 Sodium Chloride 0.9% 1,000 ml @ 2000 Wide Open IV [facility] Rx#: [id number] Zithromax 500 mg In Dextrose 5% 250 in Water 250 ml @ 250 mls/hr IV ONCE ONE Rx#:[id number] Zosyn 3.375 gm In Dextrose 5% 50 50 in Water 50 ml @ 100 mls/hr IV Q6H [facility] Rx#:[id number] Potassium Chloride 20 Meq In 260 Dextrose 5% in Water 250 ml @ 130 mls/hr IV ONCE ONE Rx#: [id number] Vancomycin 1,000 mg In Sodium 250 Chloride 0.9% 250 ml @ 250 mls/ hr IV ONCE ONE Rx#:[id number] Oral 100 220 Output: Void Amount 300 325 Other: Meal Breakfast Percent of Meal Consumed 25% Feeding Ability Independent Urine Appearance Clear Clear Urine Color Dark Yellow Light Kathleen Urine Odor Normal Stool Size Large Stool Color Brown Stool Consistency Soft Loose # Bowel Movements 1 # of times incontinent of 0 Bowels General appearance: cooperative and no acute distress Head Head exam: Present atraumatic and normal inspection Eye Eye exam: Present normal appearance ENT ENT exam: Present mucous membranes moist, normal exam and normal external ear exam Additional comments: Nasal cannula in place Neck Neck exam: Present normal inspection Respiratory Respiratory exam: Present rhonchi Cardiovascular Cardiovascular exam: Present normal rate and rhythm GI/Abdominal GI/Abdominal exam: Present normal bowel sounds Extremities Exam Extremities exam: Present tenderness; Absent full ROM or normal inspection Additional comments: Left lateral hip covered by surgical wound dressing Back Exam Back exam: Present normal inspection Neurological Exam Neurological exam: Present alert and oriented X3 Skin Skin exam: Present intact and warm OBJ DATA Labs 05/25/22 05:15 05/25/22 05:14 Labs: Abnormal Lab Results 05/25/22 05/25/22 05/25/22 05:15 05:15 05:14 WBC 15.5 H RBC 3.19 L Hgb 9.6 L Hct 29.7 L POC Hct Immature Gran % (Auto) 0.9 H Lymph % (Auto) [place] # (Auto) 1.43 H Immature Gran # 0.14 H Absolute Neutrophils 10.22 H PT 15.8 H INR 1.2 H POC VBG pH POC VBG pCO2 at Temp POC VBG pO2 POC Venous O2 Sat POC VBG Base Excess POC Potassium Potassium 3.2 L Glucose 117 H POC Glucose Calcium 7.9 L POC WB Ioniz Calcium Total Protein 5.6 L Albumin 3.0 L Procalcitonin Urine Appearance 05/24/22 05/24/22 05/24/22 20:45 19:58 19:54 WBC RBC Hgb Hct POC Hct 34.0 L Immature Gran % (Auto) Lymph % (Auto) [place] # (Auto) Immature Gran # Absolute Neutrophils PT INR POC VBG pH 7.51 H POC VBG pCO2 at Temp 32.5 L POC VBG pO2 61 H POC Venous O2 Sat 93.0 H POC VBG Base Excess 3.0 H POC Potassium 2.8 L* Potassium Glucose POC Glucose 178 H Calcium POC WB Ioniz Calcium 1.05 L Total Protein Albumin Procalcitonin Urine Appearance Hazy A 05/24/22 05/24/22 19:41 19:41 WBC 16.9 H RBC 3.58 L Hgb 10.9 L Hct 32.7 L POC Hct Immature Gran % (Auto) 1.2 H Lymph % (Auto) 14.7 L [place] # (Auto) 1.26 H Immature Gran # 0.20 H Absolute Neutrophils 12.84 H PT INR POC VBG pH POC VBG pCO2 at Temp POC VBG pO2 POC Venous O2 Sat POC VBG Base Excess POC Potassium Potassium Glucose POC Glucose Calcium POC WB Ioniz Calcium Total Protein Albumin Procalcitonin 0.24 H Urine Appearance Meds: Medications Acetaminophen (Acetaminophen 325 Mg Tablet) 650 mg PO Q6HP PRN; Protocol PRN Reason: Per Pain Protocol/Fever > 101 Last Admin: 05/25/22 07:33 Dose: 650 mg Hydrocodone Bitart/Acetaminophen (Hydrocodone/Apap 7.5/325mg Tablet) 1 tab PO Q4-6HP PRN; Protocol PRN Reason: Per Pain Protocol Albuterol/Ipratropium (Ipratropium/Albuterol 3 Ml Ampul.Neb) 3 ml NEB Q4HRT PRN PRN Reason: Wheezing Atorvastatin Calcium (Atorvastatin 40 Mg Tablet) 40 mg PO HS [facility] Cetirizine HCl (Cetirizine 10 Mg Tablet) 10 mg PO QDAY PRN PRN Reason: Allergic Symptoms Docusate Sodium (Docusate Sodium 100 Mg Capsule) 100 mg PO BID [facility] Gabapentin (Gabapentin 400 Mg Capsule) 800 mg PO QHS [facility] Gabapentin (Gabapentin 400 Mg Capsule) 400 mg PO BID@0800,1200 [facility] Guaifenesin (Guaifenesin/Dextromethorphan 5ml Ud Cup) 10 ml PO Q4HP PRN PRN Reason: Cough Hydromorphone HCl (Hydromorphone 0.5 Mg/0.5 Ml Syringe) 0.5 mg IV Q4HP PRN; Protocol PRN Reason: Per Pain Protocol Sodium Chloride (Sodium Chloride 0.9%) 1,000 mls @ 100 mls/hr IV .Q10H [facility] Last Admin: 05/25/22 02:05 Dose: 100 mls/hr Piperacillin Sod/Tazobactam (Sod 3.375 gm/ Dextrose) 50 mls @ 100 mls/hr IV Q6H [facility]; Protocol Last Infusion: 05/25/22 06:20 Dose: Infused Iron Carb/Multivit/[place]/Folic Acid (Multivit,Ther Iron,Ca,Fa & Min 1 Tablet) 1 tab PO DAILY [facility] Lactulose (Lactulose 20 Gm/30 Ml Oral.Cindy) 10 gm PO DAILYP PRN PRN Reason: Constipation Nitroglycerin (Nitroglycerin 0.4 Mg Tab.Subl) 0.4 mg SL Q5M PRN PRN Reason: Angina Non-Formulary Medication (Warfarin) 4 mg PO QDAY [facility] Non-Formulary Medication (Melatonin) 20 mg PO HS PRN PRN Reason: Sleep Olanzapine (Olanzapine 2.5 Mg Tablet) 2.5 mg PO HS [facility] Olanzapine (Olanzapine 2.5 Mg Tablet) 2.5 mg PO QHS [facility] Ondansetron HCl (Ondansetron 4 Mg/2 Ml Vial) 4 mg IV Q4HP PRN; Protocol PRN Reason: Nausea And Vomiting Mirabegron 50 Mg Tablet Extended Release 24 Hr 1 dose PO DAILY [facility] Potassium Chloride (Potassium Chloride 20 Meq Tablet) 40 meq PO BIDCC [facility] Last Admin: 05/25/22 07:33 Dose: 40 meq Primidone (Primidone 50 Mg Tablet) 50 mg PO TID [facility] Senna (Sennosides 1 Tablet) 2 tab PO HSP PRN PRN Reason: Constipation Sertraline HCl (Sertraline 100 Mg Tablet) 200 mg PO DAILY [facility] Sertraline HCl (Sertraline 100 Mg Tablet) 200 mg PO QAM [facility] Sodium Chloride (0.9 % Sodium Chloride 10 Ml Syringe) 10 ml IV Q8 [facility] Last Admin: 05/25/22 05:43 Dose: 10 ml Tamsulosin HCl (Tamsulosin 0.4 Mg Capsule) 0.4 mg PO BID [facility] Vitamin D (Vitamin D3 25 Mcg Tablet) 50 mcg PO QDAY [facility] Warfarin Sodium (Warfarin 7.5 Mg Tablet) 7.5 mg PO DAILY [facility] A/P Assessment and plan (1) HAP (hospital-acquired pneumonia): Status: Acute (2) S/P total hip arthroplasty: Status: Acute (3) BPH (benign prostatic hypertrophy) with urinary obstruction: Status: Chronic (4) Hypertension, essential: Status: Chronic (5) Major depression, recurrent: Status: Chronic Comment: Severe (6) DVT (deep venous thrombosis): Status: Chronic Comment: and pulmonary embolus-post op complication-treated with thrombolysis and vena cava filter (7) Anemia, normocytic normochromic: Status: Acute (8) Hypokalemia: Status: Acute Narrative A/P Narrative: Assessment and Plans: 1. Hospital acquired pneumonia with clinical sepsis: Inpatient PCU Serial lactic acid Procalcitonin level Blood culture, no growth to date MRSA screening negative, d/c Vancomycin cbc w/ auto diff in the morning to trend WBC Supplemental oxygen therapy Continue Zosyn s/p IV fluid bolus given in the ED, to be followed by NS@100cc/hr Physical therapy Occupational therapy 2. h/o osteoarthritis s/p left total hip replacement Dr. Callahan on 05/23: Tylenol [place] Dilaudid Physical therapy Occupational therapy 3. Depression/anxiety: Sertraline Olanzapine 4. h/o essential hypertension: Hold oral antihypertensive given clinical sepsis 5. BPH: Continue Flomax 6. h/o DVT, multiple: Coumadin Daily INR for Coumadin dosing, goal INR 2-3 7. Anemia, normocytic normochromic: cbc w/ auto diff in the morning to trend H/H 8. Hypokalemia: s/p K rider 20mEq IV once, then KCl 20mEq PO BID CMP in the morning to trend serum potassium level Also check serum Mg level and replace if needed GI ppx: not currently indicated DVT ppx: Coumadin Code status: Full Prognosis: guarded Disposition: inpatient PCU; PT/OT Time Spent With Patient Time: Total time spent is greater than 50% in coordination of care (as documented) at patient's floor/unit and/or counseling patient: Subsequent: Total time with patient: 35 - 49 minutes QUALITY VTE Deep Vein Thrombosis/Pulmonary Embolism Present on Admission: Yes
[2022-05-25] MEDS: SERTRALINE 100 MG TABLET PO SCH (10:20)
[2022-05-25] MEDS ORDERED: MELATONIN 3 MG TABLET PO PRN (10:30)
[2022-05-25] MEDS: GABAPENTIN 400 MG CAPSULE PO SCH ×2 (11:42→21:30)
[2022-05-25] MEDS: HYDROCODONE/APAP 7.5/325MG TABLET PO PRN ×2 (12:00→17:23)
[2022-05-25] MEDS: PRIMIDONE 50 MG TABLET PO SCH ×2 (14:28→21:30)
[2022-05-25] MEDS: WARFARIN 7.5 MG TABLET PO SCH (14:28)
[2022-05-25] MEDS ORDERED: OLANZapine 2.5 MG TABLET PO SCH (21:00)
[2022-05-25] MEDS ORDERED: FIBER PO SCH (21:00)
[2022-05-25] MEDS ORDERED: ACETAMINOPHEN 325 MG PO SCH (21:00)
[2022-05-25] MEDS: OLANZapine 2.5 MG TABLET PO SCH (21:30)
[2022-05-25] MEDS: TAMSULOSIN 0.4 MG CAPSULE PO SCH (21:30)
[2022-05-25] MEDS: ATORVASTATIN 40 MG TABLET PO SCH (21:30)
[2022-05-26] MEDS: 0.9 % SODIUM CHLORIDE 1,000 ML IV SCH ×4 (00:31→21:30)
[2022-05-26] MEDS: 0.9 % SODIUM CHLORIDE 10 ML SYRINGE IV SCH ×3 (05:45→21:32)
[2022-05-26] MEDS: PIPERACILLIN SODIUM/TAZOBACTAM 3.375 GM in DEXTROSE 5% IN WATER 50 ML IV SCH ×3 (05:46→17:55)
[2022-05-26] MEDS: HYDROCODONE/APAP 7.5/325MG TABLET PO PRN ×3 (06:12→21:30)
[2022-05-26 07:10] LABS: INR 1.2 (0.9-1.1); Prothrombin Time 16.1 sec (11.9-14.5)
[2022-05-26 07:30] LABS: ALT/SGPT 15 U/L (<40); AST/SGOT 27 U/L (<40); Albumin 2.9 gm/dL (3.2-5.2); Albumin/Globulin Ratio 1.1 (1.0-2.3); Alkaline Phosphatase 95 U/L (39-117); Bilirubin,Total 0.5 mg/dL (0.1-1.0); Blood Urea Nitrogen 10 mg/dL (8-23); Calcium 8.2 mg/dL (8.6-10.4); Carbon Dioxide 27 mmol/L (22-30); Chloride 107 mmol/L (96-108); Globulin 2.7 gm/dL (2.2-3.7); Glomerular Filtration Rate 81; Glucose 99 mg/dL (70-105)
[2022-05-26 07:36] LABS: Basophils # (Auto) 0.04 K/mcL (0.00-0.30); Basophils % (Auto) 0.3 % (0.0-2.0); Eosinophils # (Auto) 0.22 K/mcL (0.00-0.70); Eosinophils % (Auto) 1.8 % (0.0-7.0); Hematocrit 27.7 % (40.1-51.0); Hemoglobin 8.9 g/dL (13.7-17.5); Lymphocytes # (Auto) 2.97 K/mcL (1.50-4.80); Lymphocytes % (Auto) 24.2 % (15.5-49.0); Mean Cell Volume 94.5 fL (80.0-100.0); Mean Corpuscular HGB Conc 32.1 g/dL (31.0-36.0); Mean Platelet Volume 10.1 fL (8.8-12.5); Monocytes # (Auto) 0.96 K/mcL (0.10-0.90); Monocytes % (Auto) 7.8 % (1.0-12.0); Neutrophils % (Auto) 64.8 % (38.0-78.0); Platelet Count 143 K/mcL (140-440); RBC 2.93 M/mcL (4.63-6.08); Red Cell Distribution Width 13.7 % (11.5-14.5); WBC 12.3 K/mcL (4.5-11.0)
[2022-05-26] MEDS: PRIMIDONE 50 MG TABLET PO SCH ×3 (08:22→21:32)
[2022-05-26] MEDS: GABAPENTIN 400 MG CAPSULE PO SCH ×3 (08:22→21:32)
[2022-05-26] MEDS: TAMSULOSIN 0.4 MG CAPSULE PO SCH ×2 (08:23→21:32)
[2022-05-26] MEDS: POTASSIUM CHLORIDE 20 MEQ TABLET PO SCH ×2 (08:23→17:52)
[2022-05-26] MEDS: DOCUSATE SODIUM 100 MG CAPSULE PO SCH ×2 (08:23→21:33)
[2022-05-26] MEDS: MULTIVIT,THER IRON,CA,FA & MIN 1 TABLET PO SCH (08:23)
[2022-05-26] MEDS: SERTRALINE 100 MG TABLET PO SCH ×2 (08:23)
[2022-05-26] MEDS: VITAMIN D3 25 MCG TABLET PO SCH (08:23)
[2022-05-26] MEDS ORDERED: WARFARIN 4 MG PO SCH (09:00)
[2022-05-26] MEDS ORDERED: GLUCOSAMINE HCL 1500 MG PO SCH (09:00)
[2022-05-26] MEDS ORDERED: CALCIUM CARBONATE 500 MG TAB.CHEW CHEWED PRN (09:38)
--- NOTE | 2022-05-26 09:43 | Internal Med Progress Note ---
SUBJECTIVE Subjective Patient information: Note initiated : 05/26/22 at 9:38 am Service Date, if different from initiated Date: [] Patient: Yunior Jo 76 y/o M admitted on 05/24/22 for Post op fever. Chief Complaint: [] Interval history: Mr. 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 Santana on 05/23 who was discharged home the next day on 05/24, presenting with general body weakness. Patient was being discharged from earlier today from the surgical service feeling good but once he returned home, he started to feel general body weakness. He also is complaining of productive cough with yellow sputum for the last month or 2. He is now also complaining of shortness of breath. He is complaining of fever and chills. He is also committing of confusions. Vital signs at ED presentation significant for fever with Tmax 38.5, as well as soft blood pressure as low as 96 over 45 mmHg. Labs significant for leukocytosis with WBC 16.9. Serum lactic acid 1.4. Serum potassium level 2.8. Serum procalcitonin level 0.24. COVID screening negative. Chest x-ray preliminary result showing signs of bacterial pneumonia. Admission request is called for hospital-acquired pneumonia with associated clinical sepsis. 05/25: Fever with Tmax 38.6 overnight. Patient is currently on 2 L/min nasal cannula oxygen. MRSA screening negative. Blood culture no growth today. Patient is co mplaining of mild shortness of breath. Improving energy level. Fever and chills overnight. Mild to moderate left hip pain. Keep the patient in inpatient PCU. DC vancomycin while continuing Zosyn and IV fluid for hospital-acquired pneumonia with sepsis. Supplemental oxygen therapy titrate to achieve SPO2 above to or greater than 92%. Request pharmacy assistance for Coumadin dosing for history of recurrent DVT. Continue to provide narcotics as needed for left hip surgical pain control. Continue potassium oral replacement. Physical therapy and Occupational Therapy evaluation and treatment for placement planning. 05/26: Low grade fever Tmax 37.9 earlier this morning. Patient is currently on room air. Blood culture no growth today. Improving degree of shortness of breath. c/o productive cough with yellow and white sputum production. c/o wheezing. c/o loose stool. Denies fever, chills, or sweating. Downgrade to med surg tele. Continue Zosyn and IV fluid for hospital-acquired pneumonia with sepsis. Supplemental oxygen therapy titrate to achieve SPO2 above to or greater than 92%. Pharmacy assistance for Coumadin dosing for history of recurrent DVT. Continue to provide narcotics as needed for left hip surgical pain control. Tums PRN heart burn; Imodium PRN loose stool. Physical therapy and Occupational Therapy evaluation and treatment for placement planning. Constitutional Vitals: Vital Signs Temp Pulse Resp BP Pulse Ox O2 Del Method O2 Flow Rate 36.6 C 63 24 H 121/59 96 Nasal Cannula 2 05/26/22 08:01 05/26/22 08:01 05/26/22 08:01 05/26/22 08:01 05/26/22 08:01 05/26/22 07:02 05/26/22 07:02 Period Temp Pulse Resp BP Sys/Edwards Pulse Ox O2 Del Method O2 Flow Rate Last 24 Hr 36.6 C-38.6 C 48-81 20-28 107-140/46-68 92-99 Nasal Cannula- Room Air 1-2 Intake and Output 05/25/22 05/26/22 05/26/22 19:59 03:59 11:59 Intake Total 1220 1450 100 Output Total 175 200 400 Balance 1045 1250 -300 Weight 96.706 kg Intake & Output: Intake & Output 05/25/22 05/26/22 05/26/22 19:59 03:59 11:59 Intake Total 1220 1450 100 Output Total 175 200 400 Balance 1045 1250 -300 Weight 96.706 kg Intake: IV 1100 1050 50 Sodium Chloride 0.9% 1,000 ml @ 1000 1000 100 mls/hr IV .Q10H [facility] Rx#: [id number] Zosyn 3.375 gm In Dextrose 5% 100 50 50 in Water 50 ml @ 100 mls/hr IV Q6H [facility] Rx#:[id number] Oral 120 400 50 Output: Void Amount 175 200 400 Other: Meal Lunch Dinner Percent of Meal Consumed 100% 50% Feeding Ability Independent Assist with Tray Set Up Urine Appearance Clear Clear Clear Urine Color Dark Kathleen Dark Yellow Dark Yellow Urine Odor Normal Normal Strong Stool Size Moderate Stool Color Brown Yellow Green Stool Consistency Loose Head Head exam: Present atraumatic and normal inspection Eye Eye exam: Present normal appearance ENT ENT exam: Present mucous membranes moist, normal exam and normal external ear exam Neck Neck exam: Present normal inspection Respiratory Respiratory exam: Present rhonchi Cardiovascular Cardiovascular exam: Present normal rate and rhythm GI/Abdominal GI/Abdominal exam: Present normal bowel sounds Extremities Exam Extremities exam: Present full ROM and tenderness; Absent normal inspection Additional comments: Left lateral hip covered by surgical dressing Back Exam Back exam: Present normal inspection Neurological Exam Neurological exam: Present alert and oriented X3 Skin Skin exam: Present intact and warm OBJ DATA Labs 05/26/22 05:15 05/26/22 05:15 Labs: Abnormal Lab Results 05/26/22 05/26/22 05/26/22 05:15 05:15 05:15 WBC 12.3 H RBC 2.93 L Hgb 8.9 L Hct 27.7 L POC Hct Immature Gran % (Auto) 1.1 H Lymph % (Auto) [place] # (Auto) 0.96 H Immature Gran # 0.14 H Absolute Neutrophils PT 16.1 H INR 1.2 H POC VBG pH POC VBG pCO2 at Temp POC VBG pO2 POC Venous O2 Sat POC VBG Base Excess POC Potassium Potassium Anion Gap 7.0 L Glucose POC Glucose Calcium 8.2 L POC WB Ioniz Calcium Total Protein 5.6 L Albumin 2.9 L Procalcitonin Urine Appearance 05/25/22 05/25/22 05/25/22 05:15 05:15 05:14 WBC 15.5 H RBC 3.19 L Hgb 9.6 L Hct 29.7 L POC Hct Immature Gran % (Auto) 0.9 H Lymph % (Auto) [place] # (Auto) 1.43 H Immature Gran # 0.14 H Absolute Neutrophils 10.22 H PT 15.8 H INR 1.2 H POC VBG pH POC VBG pCO2 at Temp POC VBG pO2 POC Venous O2 Sat POC VBG Base Excess POC Potassium Potassium 3.2 L Anion Gap Glucose 117 H POC Glucose Calcium 7.9 L POC WB Ioniz Calcium Total Protein 5.6 L Albumin 3.0 L Procalcitonin Urine Appearance 05/24/22 05/24/22 05/24/22 20:45 19:58 19:54 WBC RBC Hgb Hct POC Hct 34.0 L Immature Gran % (Auto) Lymph % (Auto) [place] # (Auto) Immature Gran # Absolute Neutrophils PT INR POC VBG pH 7.51 H POC VBG pCO2 at Temp 32.5 L POC VBG pO2 61 H POC Venous O2 Sat 93.0 H POC VBG Base Excess 3.0 H POC Potassium 2.8 L* Potassium Anion Gap Glucose POC Glucose 178 H Calcium POC WB Ioniz Calcium 1.05 L Total Protein Albumin Procalcitonin Urine Appearance Hazy A 05/24/22 05/24/22 19:41 19:41 WBC 16.9 H RBC 3.58 L Hgb 10.9 L Hct 32.7 L POC Hct Immature Gran % (Auto) 1.2 H Lymph % (Auto) 14.7 L [place] # (Auto) 1.26 H Immature Gran # 0.20 H Absolute Neutrophils 12.84 H PT INR POC VBG pH POC VBG pCO2 at Temp POC VBG pO2 POC Venous O2 Sat POC VBG Base Excess POC Potassium Potassium Anion Gap Glucose POC Glucose Calcium POC WB Ioniz Calcium Total Protein Albumin Procalcitonin 0.24 H Urine Appearance Meds: Medications Acetaminophen (Acetaminophen 325 Mg Tablet) 650 mg PO Q6HP PRN; Protocol PRN Reason: Per Pain Protocol/Fever > 101 Last Admin: 05/25/22 17:23 Dose: 650 mg Hydrocodone Bitart/Acetaminophen (Hydrocodone/Apap 7.5/325mg Tablet) 1 tab PO Q4-6HP PRN; Protocol PRN Reason: Per Pain Protocol Last Admin: 05/26/22 09:33 Dose: 1 tab Albuterol/Ipratropium (Ipratropium/Albuterol 3 Ml Ampul.Neb) 3 ml NEB Q4HRT PRN PRN Reason: Wheezing Atorvastatin Calcium (Atorvastatin 40 Mg Tablet) 40 mg PO [facility] Last Admin: 05/25/22 21:30 Dose: 40 mg Cetirizine HCl (Cetirizine 10 Mg Tablet) 10 mg PO QDAY PRN PRN Reason: Allergic Symptoms Docusate Sodium (Docusate Sodium 100 Mg Capsule) 100 mg PO BID [facility] Last Admin: 05/26/22 08:23 Dose: Not Given Gabapentin (Gabapentin 400 Mg Capsule) 800 mg PO QHS [facility] Last Admin: 05/25/22 21:30 Dose: 800 mg Gabapentin (Gabapentin 400 Mg Capsule) 400 mg PO BID@0800,1200 [facility] Last Admin: 05/26/22 08:22 Dose: 400 mg Guaifenesin (Guaifenesin/Dextromethorphan 5ml Ud Cup) 10 ml PO Q4HP PRN PRN Reason: Cough Hydromorphone HCl (Hydromorphone 0.5 Mg/0.5 Ml Syringe) 0.5 mg IV Q4HP PRN; Protocol PRN Reason: Per Pain Protocol Sodium Chloride (Sodium Chloride 0.9%) 1,000 mls @ 100 mls/hr IV .Q10H [facility] Last Admin: 05/26/22 00:31 Dose: 100 mls/hr Piperacillin Sod/Tazobactam (Sod 3.375 gm/ Dextrose) 50 mls @ 100 mls/hr IV Q6H [facility]; Protocol Last Infusion: 05/26/22 06:26 Dose: Infused Iron Carb/Multivit/[place]/Folic Acid (Multivit,Ther Iron,Ca,Fa & Min 1 Tablet) 1 tab PO DAILY [facility] Last Admin: 05/26/22 08:23 Dose: 1 tab Lactulose (Lactulose 20 Gm/30 Ml Oral.Cindy) 10 gm PO DAILYP PRN PRN Reason: Constipation Melatonin (Melatonin 3 Mg Tablet) 9 mg PO HSP PRN PRN Reason: Sleep Nitroglycerin (Nitroglycerin 0.4 Mg Tab.Subl) 0.4 mg SL Q5M PRN PRN Reason: Angina Olanzapine (Olanzapine 2.5 Mg Tablet) 2.5 mg PO QHS [facility] Last Admin: 05/25/22 21:30 Dose: 2.5 mg Ondansetron HCl (Ondansetron 4 Mg/2 Ml Vial) 4 mg IV Q4HP PRN; Protocol PRN Reason: Nausea And Vomiting Mirabegron 50 Mg Tablet Extended Release 24 Hr 1 dose PO DAILY [facility] Potassium Chloride (Potassium Chloride 20 Meq Tablet) 40 meq PO BIDCC [facility] Last Admin: 05/26/22 08:23 Dose: 40 meq Primidone (Primidone 50 Mg Tablet) 50 mg PO TID [facility] Last Admin: 05/26/22 08:22 Dose: 50 mg Senna (Sennosides 1 Tablet) 2 tab PO HSP PRN PRN Reason: Constipation Sertraline HCl (Sertraline 100 Mg Tablet) 200 mg PO DAILY [facility] Last Admin: 05/26/22 08:23 Dose: 200 mg Sertraline HCl (Sertraline 100 Mg Tablet) 200 mg PO QAM [facility] Last Admin: 05/26/22 08:23 Dose: Not Given Sodium Chloride (0.9 % Sodium Chloride 10 Ml Syringe) 10 ml IV Q8 [facility] Last Admin: 05/26/22 05:45 Dose: 10 ml Tamsulosin HCl (Tamsulosin 0.4 Mg Capsule) 0.4 mg PO BID [facility] Last Admin: 05/26/22 08:23 Dose: 0.4 mg Vitamin D (Vitamin D3 25 Mcg Tablet) 50 mcg PO QDAY [facility] Last Admin: 05/26/22 08:23 Dose: 50 mcg Warfarin Sodium (Warfarin 7.5 Mg Tablet) 7.5 mg PO DAILY@1400 [facility] Last Admin: 05/25/22 14:28 Dose: 7.5 mg Warfarin Sodium (Warfarin Per Pharmacy) 1 order PO UD [facility] A/P Assessment and plan (1) HAP (hospital-acquired pneumonia): Status: Acute (2) S/P total hip arthroplasty: Status: Acute (3) BPH (benign prostatic hypertrophy) with urinary obstruction: Status: Chronic (4) Hypertension, essential: Status: Chronic (5) Major depression, recurrent: Status: Chronic Comment: Severe (6) DVT (deep venous thrombosis): Status: Chronic Comment: and pulmonary embolus-post op complication-treated with thrombolysis and vena cava filter (7) Anemia, normocytic normochromic: Status: Acute (8) Hypokalemia: Status: Acute Narrative A/P Narrative: Assessment and Plans: 1. Hospital acquired pneumonia with clinical sepsis: Inpatient med surg telemetry Serial lactic acid Procalcitonin level Blood culture, no growth to date MRSA screening negative, d/c Vancomycin cbc w/ auto diff in the morning to trend WBC Supplemental oxygen therapy Continue Zosyn s/p IV fluid bolus given in the ED, to be followed by NS@100cc/hr Physical therapy Occupational therapy 2. h/o osteoarthritis s/p left total hip replacement Dr. Callahan on 05/23: Tylenol [place] Dilaudid Physical therapy Occupational therapy 3. Depression/anxiety: Sertraline Olanzapine 4. h/o essential hypertension: Hold oral antihypertensive given clinical sepsis 5. BPH: Continue Flomax 6. h/o DVT, multiple: Coumadin Daily INR for Coumadin dosing, goal INR 2-3 7. Anemia, normocytic normochromic: cbc w/ auto diff in the morning to trend H/H 8. Hypokalemia: s/p K rider 20mEq IV once, then KCl 20mEq PO BID CMP in the morning to trend serum potassium level Also check serum Mg level and replace if needed 9. Loose stool/diarrhea: Imodium PRN loose stool GI ppx: not currently indicated DVT ppx: Coumadin Code status: Full Prognosis: guarded Disposition: inpatient med surg tele; PT/OT Time Spent With Patient Time: Total time spent is greater than 50% in coordination of care (as documented) at patient's floor/unit and/or counseling patient: QUALITY VTE Deep Vein Thrombosis/Pulmonary Embolism Present on Admission: Yes
[2022-05-26] MEDS: Mirabegron 50 mg tablet extended release 24 hr PO SCH (11:40)
[2022-05-26] MEDS: WARFARIN 7.5 MG TABLET PO SCH (14:12)
[2022-05-26] MEDS: ACETAMINOPHEN 325 MG TABLET PO PRN (16:09)
[2022-05-26] MEDS ORDERED: ENOXAPARIN 100 MG/ML SYRINGE SQ SCH (21:00)
[2022-05-26] MEDS: ATORVASTATIN 40 MG TABLET PO SCH (21:31)
[2022-05-26] MEDS: OLANZapine 2.5 MG TABLET PO SCH (21:32)
[2022-05-27] MEDS: PIPERACILLIN SODIUM/TAZOBACTAM 3.375 GM in DEXTROSE 5% IN WATER 50 ML IV SCH ×4 (00:16→17:36)
[2022-05-27] MEDS: 0.9 % SODIUM CHLORIDE 1,000 ML IV SCH (02:18)
[2022-05-27] MEDS: HYDROCODONE/APAP 7.5/325MG TABLET PO PRN ×2 (04:37→08:30)
[2022-05-27] MEDS: LOPERAMIDE 2 MG CAPSULE PO PRN (05:40)
[2022-05-27] MEDS: 0.9 % SODIUM CHLORIDE 10 ML SYRINGE IV SCH ×3 (06:08→21:14)
[2022-05-27 07:16] LABS: Basophils # (Auto) 0.04 K/mcL (0.00-0.30); Basophils % (Auto) 0.4 % (0.0-2.0); Eosinophils # (Auto) 0.35 K/mcL (0.00-0.70); Eosinophils % (Auto) 3.3 % (0.0-7.0); Hematocrit 28.8 % (40.1-51.0); Hemoglobin 9.1 g/dL (13.7-17.5); Lymphocytes % (Auto) 21.5 % (15.5-49.0); Mean Cell Volume 96.3 fL (80.0-100.0); Mean Corpuscular HGB Conc 31.6 g/dL (31.0-36.0); Mean Platelet Volume 10.2 fL (8.8-12.5); Monocytes # (Auto) 0.82 K/mcL (0.10-0.90); Monocytes % (Auto) 7.7 % (1.0-12.0); Neutrophils % (Auto) 66.1 % (38.0-78.0); Platelet Count 157 K/mcL (140-440); RBC 2.99 M/mcL (4.63-6.08); Red Cell Distribution Width 13.6 % (11.5-14.5); WBC 10.7 K/mcL (4.5-11.0)
[2022-05-27] MEDS: ACETAMINOPHEN 325 MG TABLET PO PRN ×2 (07:21→23:40)
[2022-05-27 07:22] LABS: INR 1.3 (0.9-1.1)
[2022-05-27 07:55] LABS: ALT/SGPT 30 U/L (<40); AST/SGOT 44 U/L (<40); Albumin 2.8 gm/dL (3.2-5.2); Alkaline Phosphatase 111 U/L (39-117); Bilirubin,Total 0.5 mg/dL (0.1-1.0); Blood Urea Nitrogen 8 mg/dL (8-23); Calcium 8.2 mg/dL (8.6-10.4); Carbon Dioxide 26 mmol/L (22-30); Chloride 107 mmol/L (96-108); Globulin 2.9 gm/dL (2.2-3.7); Glomerular Filtration Rate 85; Glucose 98 mg/dL (70-105)
--- NOTE | 2022-05-27 08:23 | Internal Med Progress Note ---
SUBJECTIVE Subjective Patient information: Note initiated : 05/27/22 at 8:21 am Service Date, if different from initiated Date: [] Patient: Yunior Jo 76 y/o M admitted on 05/24/22 for Post op fever. Chief Complaint: [] Interval history: Mr. 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 Santana on 05/23 who was discharged home the next day on 05/24, presenting with general body weakness. Patient was being discharged from earlier today from the surgical service feeling good but once he returned home, he started to feel general body weakness. He also is complaining of productive cough with yellow sputum for the last month or 2. He is now also complaining of shortness of breath. He is complaining of fever and chills. He is also committing of confusions. Vital signs at ED presentation significant for fever with Tmax 38.5, as well as soft blood pressure as low as 96 over 45 mmHg. Labs significant for leukocytosis with WBC 16.9. Serum lactic acid 1.4. Serum potassium level 2.8. Serum procalcitonin level 0.24. COVID screening negative. Chest x-ray preliminary result showing signs of bacterial pneumonia. Admission request is called for hospital-acquired pneumonia with associated clinical sepsis. 05/25: Fever with Tmax 38.6 overnight. Patient is currently on 2 L/min nasal cannula oxygen. MRSA screening negative. Blood culture no growth today. Patient is co mplaining of mild shortness of breath. Improving energy level. Fever and chills overnight. Mild to moderate left hip pain. Keep the patient in inpatient PCU. DC vancomycin while continuing Zosyn and IV fluid for hospital-acquired pneumonia with sepsis. Supplemental oxygen therapy titrate to achieve SPO2 above to or greater than 92%. Request pharmacy assistance for Coumadin dosing for history of recurrent DVT. Continue to provide narcotics as needed for left hip surgical pain control. Continue potassium oral replacement. Physical therapy and Occupational Therapy evaluation and treatment for placement planning. 05/26: Low grade fever Tmax 37.9 earlier this morning. Patient is currently on room air. Blood culture no growth today. Improving degree of shortness of breath. c/o productive cough with yellow and white sputum production. c/o wheezing. c/o loose stool. Denies fever, chills, or sweating. Downgrade to [place] surg tele. Continue Zosyn and IV fluid for hospital-acquired pneumonia with sepsis. Supplemental oxygen therapy titrate to achieve SPO2 above to or greater than 92%. Pharmacy assistance for Coumadin dosing for history of recurrent DVT. Continue to provide narcotics as needed for left hip surgical pain control. Tums PRN heart burn; Imodium PRN loose stool. Physical therapy and Occupational Therapy evaluation and treatment for placement planning. 05/27: Low grade fever Tmax 37.8 earlier this morning. Patient is currently on 1L/min oxygen this morning. Blood culture no growth today. Improving degree of shortness of breath. Patient is complaining of productive cough with white sputum. He is complaining of diarrhea and loose stool. Stay in inpatient [facility], [place] telemetry. With saline lock the patient's. Continues to use supplemental oxygen therapy and Zosyn while waiting for blood culture result. Imodium as needed for loose stool. Pending SNF placement. Constitutional Vitals: Vital Signs Temp Pulse Resp BP Pulse Ox O2 Del Method O2 Flow Rate 37.7 C H 55 L 23 H 126/62 98 Nasal Cannula 1 05/27/22 08:01 05/27/22 08:01 05/27/22 08:01 05/27/22 08:01 05/27/22 08:01 05/27/22 08:01 05/27/22 08:01 Period Temp Pulse Resp BP Sys/Edwards Pulse Ox O2 Del Method O2 Flow Rate Last 24 Hr 37.1 C-38.4 C 49-93 16-30 115-162/55-79 91-100 Nasal Cannula- Room Air 1-3 Intake and Output 05/26/22 05/27/22 05/27/22 19:59 03:59 11:59 Intake Total 600 1247 150 Output Total 400 550 500 Balance 200 697 -350 Weight 96.706 kg 98.883 kg Intake & Output: Intake & Output 05/26/22 05/27/22 05/27/22 19:59 03:59 11:59 Intake Total 600 1247 150 Output Total 400 550 500 Balance 200 697 -350 Weight 96.706 kg 98.883 kg Intake: IV 100 1047 50 Sodium Chloride 0.9% 1,000 ml @ 997 100 mls/hr IV .Q10H [facility] Rx#: [id number] Zosyn 3.375 gm In Dextrose 5% 100 50 50 in Water 50 ml @ 100 mls/hr IV Q6H [facility] Rx#:[id number] Oral 500 200 100 Output: Void Amount 400 550 Urine/Stool Mix 500 Other: Meal Dinner Percent of Meal Consumed 75% Feeding Ability Independent Urine Appearance Clear Clear Clear Urine Color Dark Yellow Dark Yellow Dark Yellow Urine Odor Normal Normal Stool Size Large Stool Color Brown Yellow Stool Consistency Liquid Loose # Voids 1 # Bowel Movements 1 Head Head exam: Present atraumatic and normal inspection Eye Eye exam: Present normal appearance ENT ENT exam: Present mucous membranes moist, normal exam and normal external ear exam Additional comments: Nasal cannula in place Neck Neck exam: Present normal inspection Respiratory Respiratory exam: Present rhonchi and wheezes Cardiovascular Cardiovascular exam: Present normal rate and rhythm GI/Abdominal GI/Abdominal exam: Present normal bowel sounds Extremities Exam Extremities exam: Present full ROM and tenderness; Absent normal inspection Additional comments: Left lateral hip covered by surgical dressing Back Exam Back exam: Present normal inspection Neurological Exam Neurological exam: Present alert and oriented X3 Skin Skin exam: Present intact and warm OBJ DATA Labs 05/27/22 05:19 05/27/22 05:19 Labs: Abnormal Lab Results 05/27/22 05/27/22 05/27/22 05:19 05:19 05:19 WBC RBC 2.99 L Hgb 9.1 L Hct 28.8 L POC Hct Immature Gran % (Auto) 1.0 H Lymph % (Auto) Isabella # (Auto) Immature Gran # 0.11 H Absolute Neutrophils PT 17.0 H INR 1.3 H POC VBG pH POC VBG pCO2 at Temp POC VBG pO2 POC Venous O2 Sat POC VBG Base Excess POC Potassium Potassium Anion Gap Glucose POC Glucose Calcium 8.2 L POC WB Ioniz Calcium AST 44 H Total Protein 5.7 L Albumin 2.8 L Procalcitonin Urine Appearance 05/26/22 05/26/22 05/26/22 05:15 05:15 05:15 WBC 12.3 H RBC 2.93 L Hgb 8.9 L Hct 27.7 L POC Hct Immature Gran % (Auto) 1.1 H Lymph % (Auto) Isabella # (Auto) 0.96 H Immature Gran # 0.14 H Absolute Neutrophils PT 16.1 H INR 1.2 H POC VBG pH POC VBG pCO2 at Temp POC VBG pO2 POC Venous O2 Sat POC VBG Base Excess POC Potassium Potassium Anion Gap 7.0 L Glucose POC Glucose Calcium 8.2 L POC WB Ioniz Calcium AST Total Protein 5.6 L Albumin 2.9 L Procalcitonin Urine Appearance 05/25/22 05/25/22 05/25/22 05:15 05:15 05:14 WBC 15.5 H RBC 3.19 L Hgb 9.6 L Hct 29.7 L POC Hct Immature Gran % (Auto) 0.9 H Lymph % (Auto) Isabella # (Auto) 1.43 H Immature Gran # 0.14 H Absolute Neutrophils 10.22 H PT 15.8 H INR 1.2 H POC VBG pH POC VBG pCO2 at Temp POC VBG pO2 POC Venous O2 Sat POC VBG Base Excess POC Potassium Potassium 3.2 L Anion Gap Glucose 117 H POC Glucose Calcium 7.9 L POC WB Ioniz Calcium AST Total Protein 5.6 L Albumin 3.0 L Procalcitonin Urine Appearance 05/24/22 05/24/22 05/24/22 20:45 19:58 19:54 WBC RBC Hgb Hct POC Hct 34.0 L Immature Gran % (Auto) Lymph % (Auto) Isabella # (Auto) Immature Gran # Absolute Neutrophils PT INR POC VBG pH 7.51 H POC VBG pCO2 at Temp 32.5 L POC VBG pO2 61 H POC Venous O2 Sat 93.0 H POC VBG Base Excess 3.0 H POC Potassium 2.8 L* Potassium Anion Gap Glucose POC Glucose 178 H Calcium POC WB Ioniz Calcium 1.05 L AST Total Protein Albumin Procalcitonin Urine Appearance Hazy A 05/24/22 05/24/22 19:41 19:41 WBC 16.9 H RBC 3.58 L Hgb 10.9 L Hct 32.7 L POC Hct Immature Gran % (Auto) 1.2 H Lymph % (Auto) 14.7 L Isabella # (Auto) 1.26 H Immature Gran # 0.20 H Absolute Neutrophils 12.84 H PT INR POC VBG pH POC VBG pCO2 at Temp POC VBG pO2 POC Venous O2 Sat POC VBG Base Excess POC Potassium Potassium Anion Gap Glucose POC Glucose Calcium POC WB Ioniz Calcium AST Total Protein Albumin Procalcitonin 0.24 H Urine Appearance Meds: Medications Acetaminophen (Acetaminophen 325 Mg Tablet) 650 mg PO Q6HP PRN; Protocol PRN Reason: Per Pain Protocol/Fever > 101 Last Admin: 05/27/22 07:21 Dose: 650 mg Hydrocodone Bitart/Acetaminophen (Hydrocodone/Apap 7.5/325mg Tablet) 1 tab PO Q4-6HP PRN; Protocol PRN Reason: Per Pain Protocol Last Admin: 05/27/22 04:37 Dose: 1 tab Albuterol/Ipratropium (Ipratropium/Albuterol 3 Ml Ampul.Neb) 3 ml NEB Q4HRT PRN PRN Reason: Wheezing Atorvastatin Calcium (Atorvastatin 40 Mg Tablet) 40 mg PO HS [facility] Last Admin: 05/26/22 21:31 Dose: 40 mg Calcium Carbonate/Glycine (Calcium Carbonate 500 Mg Tab.Chew) 500 mg CHEWED Q4HP PRN PRN Reason: Dyspepsia Cetirizine HCl (Cetirizine 10 Mg Tablet) 10 mg PO QDAY PRN PRN Reason: Allergic Symptoms Docusate Sodium (Docusate Sodium 100 Mg Capsule) 100 mg PO BID [facility] Last Admin: 05/26/22 21:33 Dose: Not Given Gabapentin (Gabapentin 400 Mg Capsule) 800 mg PO QHS [facility] Last Admin: 05/26/22 21:32 Dose: 800 mg Gabapentin (Gabapentin 400 Mg Capsule) 400 mg PO BID@0800,1200 [facility] Last Admin: 05/26/22 12:31 Dose: 400 mg Guaifenesin (Guaifenesin/Dextromethorphan 5ml Ud Cup) 10 ml PO Q4HP PRN PRN Reason: Cough Hydromorphone HCl (Hydromorphone 0.5 Mg/0.5 Ml Syringe) 0.5 mg IV Q4HP PRN; Protocol PRN Reason: Per Pain Protocol Sodium Chloride (Sodium Chloride 0.9%) 1,000 mls @ 100 mls/hr IV .Q10H [facility] Last Admin: 05/27/22 02:18 Dose: Not Given Piperacillin Sod/Tazobactam (Sod 3.375 gm/ Dextrose) 50 mls @ 100 mls/hr IV Q6H [facility]; Protocol Last Infusion: 05/27/22 06:48 Dose: Infused Iron Carb/Multivit/[place]/Folic Acid (Multivit,Ther Iron,Ca,Fa & Min 1 Tablet) 1 tab PO DAILY [facility] Last Admin: 05/26/22 08:23 Dose: 1 tab Lactulose (Lactulose 20 Gm/30 Ml Oral.Cindy) 10 gm PO DAILYP PRN PRN Reason: Constipation Loperamide HCl (Loperamide 2 Mg Capsule) 2 mg PO PRN PRN PRN Reason: Diarrhea Last Admin: 05/27/22 05:40 Dose: 2 mg Melatonin (Melatonin 3 Mg Tablet) 9 mg PO HSP PRN PRN Reason: Sleep Nitroglycerin (Nitroglycerin 0.4 Mg Tab.Subl) 0.4 mg SL Q5M PRN PRN Reason: Angina Olanzapine (Olanzapine 2.5 Mg Tablet) 2.5 mg PO QHS [facility] Last Admin: 05/26/22 21:32 Dose: 2.5 mg Ondansetron HCl (Ondansetron 4 Mg/2 Ml Vial) 4 mg IV Q4HP PRN; Protocol PRN Reason: Nausea And Vomiting Mirabegron 50 Mg Tablet Extended Release 24 Hr 1 dose PO DAILY [facility] Last Admin: 05/26/22 11:40 Dose: 1 dose Potassium Chloride (Potassium Chloride 20 Meq Tablet) 40 meq PO BIDCC [facility] Last Admin: 05/26/22 17:52 Dose: 40 meq Primidone (Primidone 50 Mg Tablet) 50 mg PO TID [facility] Last Admin: 05/26/22 21:32 Dose: 50 mg Senna (Sennosides 1 Tablet) 2 tab PO HSP PRN PRN Reason: Constipation Sertraline HCl (Sertraline 100 Mg Tablet) 200 mg PO DAILY [facility] Last Admin: 05/26/22 08:23 Dose: 200 mg Sertraline HCl (Sertraline 100 Mg Tablet) 200 mg PO QAM [facility] Last Admin: 05/26/22 08:23 Dose: Not Given Sodium Chloride (0.9 % Sodium Chloride 10 Ml Syringe) 10 ml IV Q8 [facility] Last Admin: 05/27/22 06:08 Dose: 10 ml Tamsulosin HCl (Tamsulosin 0.4 Mg Capsule) 0.4 mg PO BID [facility] Last Admin: 05/26/22 21:32 Dose: 0.4 mg Vitamin D (Vitamin D3 25 Mcg Tablet) 50 mcg PO QDAY [facility] Last Admin: 05/26/22 08:23 Dose: 50 mcg Warfarin Sodium (Warfarin Per Pharmacy) 1 order PO [facility] Warfarin Sodium (Warfarin 5 Mg Tablet) 10 mg PO ONCE@1400 ONE Stop: 05/27/22 14:01 A/P Assessment and plan (1) HAP (hospital-acquired pneumonia): Status: Acute (2) S/P total hip arthroplasty: Status: Acute (3) BPH (benign prostatic hypertrophy) with urinary obstruction: Status: Chronic (4) Hypertension, essential: Status: Chronic (5) Major depression, recurrent: Status: Chronic Comment: Severe (6) DVT (deep venous thrombosis): Status: Chronic Comment: and pulmonary embolus-post op complication-treated with thrombolysis and vena cava filter (7) Anemia, normocytic normochromic: Status: Acute (8) Hypokalemia: Status: Acute Narrative A/P Narrative: Assessment and Plans: 1. Hospital acquired pneumonia with clinical sepsis: Inpatient med surg Serial lactic acid Procalcitonin level Blood culture, no growth to date MRSA screening negative, d/c Vancomycin cbc w/ auto diff in the morning to trend WBC Supplemental oxygen therapy Continue Zosyn Saline lock Physical therapy Occupational therapy 2. h/o osteoarthritis s/p left total hip replacement Dr. Callahan on 05/23: Tylenol [place] Dilaudid Physical therapy Occupational therapy 3. Depression/anxiety: Sertraline Olanzapine 4. h/o essential hypertension: Hold oral antihypertensive given clinical sepsis 5. BPH: Continue Flomax 6. h/o DVT, multiple: Coumadin Daily INR for Coumadin dosing, goal INR 2-3 7. Anemia, normocytic normochromic: cbc w/ auto diff in the morning to trend H/H 8. Hypokalemia: s/p K rider 20mEq IV once, then KCl 20mEq PO BID CMP in the morning to trend serum potassium level Also check serum Mg level and replace if needed 9. Loose stool/diarrhea: Imodium PRN loose stool GI ppx: not currently indicated DVT ppx: Coumadin Code status: Full Prognosis: guarded Disposition: inpatient med surg; SNF Time Spent With Patient Time: Total time spent is greater than 50% in coordination of care (as documented) at patient's floor/unit and/or counseling patient: Subsequent: Total time with patient: 35 - 49 minutes QUALITY VTE Deep Vein Thrombosis/Pulmonary Embolism Present on Admission: Yes
[2022-05-27] MEDS: SERTRALINE 100 MG TABLET PO SCH ×2 (08:30→08:33)
[2022-05-27] MEDS: GABAPENTIN 400 MG CAPSULE PO SCH ×3 (08:30→21:13)
[2022-05-27] MEDS: TAMSULOSIN 0.4 MG CAPSULE PO SCH ×2 (08:30→21:13)
[2022-05-27] MEDS: POTASSIUM CHLORIDE 20 MEQ TABLET PO SCH ×2 (08:31→17:00)
[2022-05-27] MEDS: DOCUSATE SODIUM 100 MG CAPSULE PO SCH ×2 (08:31→20:49)
[2022-05-27] MEDS: PRIMIDONE 50 MG TABLET PO SCH ×3 (08:31→21:13)
[2022-05-27] MEDS: MULTIVIT,THER IRON,CA,FA & MIN 1 TABLET PO SCH (08:31)
[2022-05-27] MEDS: VITAMIN D3 25 MCG TABLET PO SCH (08:31)
[2022-05-27] MEDS: Mirabegron 50 mg tablet extended release 24 hr PO SCH (08:32)
[2022-05-27] MEDS: ACYCLOVIR 400 MG TABLET PO SCH ×3 (12:02→21:13)
[2022-05-27] MEDS: HYDROcodone/APAP 10/325MG TABLET PO PRN ×2 (12:15→17:10)
[2022-05-27] MEDS ORDERED: WARFARIN 5 MG TABLET PO ONE (14:00)
[2022-05-27] MEDS ORDERED: IOPAMIDOL 100 ML BOTTLE IV ONE (14:54)
--- NOTE | 2022-05-27 15:10 | Cat Scan Report ---
History: Hypoxia, postop fever after hip surgery, prior prostatectomy TECHNIQUE: Following injection of intravenous nonionic contrast the chest was imaged during the pulmonary arterial phase. Sagittal, coronal and axial MIPS images were created. The radiation exposure was limited using dose reduction technology. FINDINGS: The pulmonary arteries are dilated. This is a chronic finding consistent with pulmonary artery hypertension. There is no evidence of pulmonary emboli. The heart is mildly enlarged. Large amount of atherosclerotic plaque is present throughout the coronary arteries. No pericardial effusion. Patient has chronic interstitial lung disease throughout all lobes. The greatest involvement is in a subpleural distribution. This may represent combination of chronic interstitial fibrosis and a superimposed active inflammatory process. There is pleural thickening posteriorly in both lung bases. No lobar consolidation is present. There is no evidence of a mass. The trachea is normal. There is mild bronchial wall thickening in both lung bases consistent with chronic bronchitis. No endobronchial lesion is seen. There are lymph nodes in the mediastinum. The largest is in the pretracheal retrocaval space. It has a fatty hilum and measures 1.9 cm. This has remained stable. Patient has a spinal stimulator in the midthoracic spinal canal. The power pack is in the right flank. Severe spinal canal stenosis is present at L1-2 due to advanced degenerative changes. Comparison with the prior CT done on 05/31/21 shows no change in caliber of the pulmonary artery. The interstitial lung disease is a chronic finding with mild progression. IMPRESSION: No evidence of pulmonary emboli Pulmonary fibrosis. There may be superimposed active inflammation in the lung parenchyma and along the hatch of the bronchi. Cardiomegaly with severe atherosclerotic coronary artery disease Dr. Delacruz was called with the report Interpreted and Authenticated by: Dhiraj Nagy 05/27/22
[2022-05-27] MEDS ORDERED: VANCOMYCIN PER PHARMACY IV SCH (17:59)
[2022-05-27] MEDS: CEFEPIME 2 GM VIAL IV SCH (19:29)
--- NOTE | 2022-05-27 19:51 | Orthopedic Progress Note ---
SUBJECTIVE Subjective Patient information: Note initiated : 05/27/22 at 7:42 pm Service Date, if different from initiated Date: [] Patient: Yunior Jo 76 y/o M admitted on 05/24/22 for Post op fever. Chief Complaint: [] Interval history: pt states hip not hurting more than it has been. Did not take his lovenox. Constitutional Vitals: Vital Signs Temp Pulse Resp BP Pulse Ox O2 Del Method O2 Flow Rate 97.9 F 55 L 20 143/70 98 Nasal Cannula 0.5 05/27/22 16:00 05/27/22 08:01 05/27/22 16:00 05/27/22 16:00 05/27/22 16:00 05/27/22 12:00 05/27/22 12:00 Period Temp Pulse Resp BP Sys/Edwards Pulse Ox O2 Del Method O2 Flow Rate Last 24 Hr 97.9 F-100.0 F 49-93 16-30 115-148/55-71 91-98 Nasal Cannula- Room Air 0.5-2 Intake and Output 05/27/22 05/27/22 05/27/22 03:59 11:59 19:59 Intake Total 1247 1390 580 Output Total 550 500 725 Balance 697 890 -145 Weight 218 lb Intake & Output: Intake & Output 05/27/22 05/27/22 05/27/22 03:59 11:59 19:59 Intake Total 1247 1390 580 Output Total 550 500 725 Balance 697 890 -145 Weight 218 lb Intake: IV 1047 1050 100 Sodium Chloride 0.9% 1,000 ml @ 997 1000 100 mls/hr IV .Q10H [facility] Rx#: [id number] Zosyn 3.375 gm In Dextrose 5% 50 50 100 in Water 50 ml @ 100 mls/hr IV Q6H [facility] Rx#:[id number] Oral 200 340 480 Output: Void Amount 550 725 Urine/Stool Mix 500 Other: Meal Breakfast Lunch Percent of Meal Consumed 100% 100% Feeding Ability Independent Assist with Tray Set Up Urine Appearance Clear Clear Clear Urine Color Dark Yellow Dark Yellow Tea Colored Urine Odor Normal Stool Size Large Stool Color Brown Yellow Stool Consistency Liquid Loose # Voids 1 # Bowel Movements 1 Skin Additional comments: diffuse light erythema of nearly the entire LLE, diffuse edema, incision w/o increased erythema compared to rest of leg, there is serous drainage on dressing and visible coming from the incision, log rolling leg not painful OBJ DATA Labs 05/27/22 05:19 05/27/22 05:19 Labs: Abnormal Lab Results 05/27/22 05/27/22 05/27/22 05:19 05:19 05:19 WBC RBC Hgb Hct POC Hct Immature Gran % (Auto) Lymph % (Auto) [place] # (Auto) Immature Gran # Absolute Neutrophils PT 17.0 H INR 1.3 H POC VBG pH POC VBG pCO2 at Temp POC VBG pO2 POC Venous O2 Sat POC VBG Base Excess POC Potassium Potassium Anion Gap Glucose POC Glucose Calcium 8.2 L POC WB Ioniz Calcium AST 44 H C-Reactive Protein 15.00 H Total Protein 5.7 L Albumin 2.8 L Procalcitonin Urine Appearance 05/27/22 05/26/22 05/26/22 05:19 05:15 05:15 WBC RBC 2.99 L Hgb 9.1 L Hct 28.8 L POC Hct Immature Gran % (Auto) 1.0 H Lymph % (Auto) [place] # (Auto) Immature Gran # 0.11 H Absolute Neutrophils PT 16.1 H INR 1.2 H POC VBG pH POC VBG pCO2 at Temp POC VBG pO2 POC Venous O2 Sat POC VBG Base Excess POC Potassium Potassium Anion Gap 7.0 L Glucose POC Glucose Calcium 8.2 L POC WB Ioniz Calcium AST C-Reactive Protein Total Protein 5.6 L Albumin 2.9 L Procalcitonin Urine Appearance 05/26/22 05/25/22 05/25/22 05:15 05:15 05:15 WBC 12.3 H 15.5 H RBC 2.93 L 3.19 L Hgb 8.9 L 9.6 L Hct 27.7 L 29.7 L POC Hct Immature Gran % (Auto) 1.1 H 0.9 H Lymph % (Auto) [place] # (Auto) 0.96 H 1.43 H Immature Gran # 0.14 H 0.14 H Absolute Neutrophils 10.22 H PT 15.8 H INR 1.2 H POC VBG pH POC VBG pCO2 at Temp POC VBG pO2 POC Venous O2 Sat POC VBG Base Excess POC Potassium Potassium Anion Gap Glucose POC Glucose Calcium POC WB Ioniz Calcium AST C-Reactive Protein Total Protein Albumin Procalcitonin Urine Appearance 05/25/22 05/24/22 05/24/22 05:14 20:45 19:58 WBC RBC Hgb Hct POC Hct 34.0 L Immature Gran % (Auto) Lymph % (Auto) [place] # (Auto) Immature Gran # Absolute Neutrophils PT INR POC VBG pH POC VBG pCO2 at Temp POC VBG pO2 POC Venous O2 Sat POC VBG Base Excess POC Potassium 2.8 L* Potassium 3.2 L Anion Gap Glucose 117 H POC Glucose 178 H Calcium 7.9 L POC WB Ioniz Calcium 1.05 L AST C-Reactive Protein Total Protein 5.6 L Albumin 3.0 L Procalcitonin Urine Appearance Hazy A 05/24/22 05/24/22 05/24/22 19:54 19:41 19:41 WBC 16.9 H RBC 3.58 L Hgb 10.9 L Hct 32.7 L POC Hct Immature Gran % (Auto) 1.2 H Lymph % (Auto) 14.7 L [place] # (Auto) 1.26 H Immature Gran # 0.20 H Absolute Neutrophils 12.84 H PT INR POC VBG pH 7.51 H POC VBG pCO2 at Temp 32.5 L POC VBG pO2 61 H POC Venous O2 Sat 93.0 H POC VBG Base Excess 3.0 H POC Potassium Potassium Anion Gap Glucose POC Glucose Calcium POC WB Ioniz Calcium AST C-Reactive Protein Total Protein Albumin Procalcitonin 0.24 H Urine Appearance Meds: Medications Acetaminophen (Acetaminophen 325 Mg Tablet) 650 mg PO Q6HP PRN; Protocol PRN Reason: Per Pain Protocol/Fever > 101 Last Admin: 05/27/22 07:21 Dose: 650 mg Hydrocodone Bitart/Acetaminophen (Hydrocodone/Apap 10/325mg Tablet) 1 - 2 tab PO Q4HP PRN; Protocol PRN Reason: Per Pain Protocol Last Admin: 05/27/22 17:10 Dose: 1 tab Acyclovir (Acyclovir 400 Mg Tablet) 400 mg PO TID [facility]; Protocol Last Admin: 05/27/22 14:42 Dose: Not Given Albuterol/Ipratropium (Ipratropium/Albuterol 3 Ml Ampul.Neb) 3 ml NEB Q4HRT PRN PRN Reason: Wheezing Atorvastatin Calcium (Atorvastatin 40 Mg Tablet) 40 mg PO HS [facility] Last Admin: 05/26/22 21:31 Dose: 40 mg Calcium Carbonate/Glycine (Calcium Carbonate 500 Mg Tab.Chew) 500 mg CHEWED Q4HP PRN PRN Reason: Dyspepsia Cefepime HCl (Cefepime 2 Gm Vial) 2 gm IV Q8H [facility]; Protocol Last Admin: 05/27/22 19:29 Dose: 2 gm Cetirizine HCl (Cetirizine 10 Mg Tablet) 10 mg PO QDAY PRN PRN Reason: Allergic Symptoms Last Admin: 05/27/22 17:00 Dose: 10 mg Docusate Sodium (Docusate Sodium 100 Mg Capsule) 100 mg PO BID [facility] Last Admin: 05/27/22 08:31 Dose: Not Given Gabapentin (Gabapentin 400 Mg Capsule) 800 mg PO QHS [facility] Last Admin: 05/26/22 21:32 Dose: 800 mg Gabapentin (Gabapentin 400 Mg Capsule) 400 mg PO BID@0800,1200 [facility] Last Admin: 05/27/22 12:02 Dose: 400 mg Guaifenesin (Guaifenesin/Dextromethorphan 5ml Ud Cup) 10 ml PO Q4HP PRN PRN Reason: Cough Hydromorphone HCl (Hydromorphone 0.5 Mg/0.5 Ml Syringe) 0.5 mg IV Q4HP PRN; Protocol PRN Reason: Per Pain Protocol Vancomycin HCl 1,500 mg/ (Sodium Chloride) 500 mls @ 333.3 mls/hr IV Q12H [facility] Iron Carb/Multivit/[place] Closer/Folic Acid (Multivit,Ther Iron,Ca,Fa & Min 1 Tablet) 1 tab PO DAILY [facility] Last Admin: 05/27/22 08:31 Dose: 1 tab Lactulose (Lactulose 20 Gm/30 Ml Oral.Cindy) 10 gm PO DAILYP PRN PRN Reason: Constipation Loperamide HCl (Loperamide 2 Mg Capsule) 2 mg PO PRN PRN PRN Reason: Diarrhea Last Admin: 05/27/22 05:40 Dose: 2 mg Melatonin (Melatonin 3 Mg Tablet) 9 mg PO HSP PRN PRN Reason: Sleep Nitroglycerin (Nitroglycerin 0.4 Mg Tab.Subl) 0.4 mg SL Q5M PRN PRN Reason: Angina Olanzapine (Olanzapine 2.5 Mg Tablet) 2.5 mg PO QHS [facility] Last Admin: 05/26/22 21:32 Dose: 2.5 mg Ondansetron HCl (Ondansetron 4 Mg/2 Ml Vial) 4 mg IV Q4HP PRN; Protocol PRN Reason: Nausea And Vomiting Mirabegron 50 Mg Tablet Extended Release 24 Hr 1 dose PO DAILY [facility] Last Admin: 05/27/22 08:32 Dose: 1 dose Potassium Chloride (Potassium Chloride 20 Meq Tablet) 40 meq PO BIDCC [facility] Last Admin: 05/27/22 17:00 Dose: 40 meq Primidone (Primidone 50 Mg Tablet) 50 mg PO TID [facility] Last Admin: 05/27/22 13:43 Dose: 50 mg Senna (Sennosides 1 Tablet) 2 tab PO HSP PRN PRN Reason: Constipation Sertraline HCl (Sertraline 100 Mg Tablet) 200 mg PO DAILY [facility] Last Admin: 05/27/22 08:30 Dose: 200 mg Sertraline HCl (Sertraline 100 Mg Tablet) 200 mg PO QAM [facility] Last Admin: 05/27/22 08:33 Dose: Not Given Sodium Chloride (0.9 % Sodium Chloride 10 Ml Syringe) 10 ml IV Q8 [facility] Last Admin: 05/27/22 14:38 Dose: 10 ml Tamsulosin HCl (Tamsulosin 0.4 Mg Capsule) 0.4 mg PO BID [facility] Last Admin: 05/27/22 08:30 Dose: 0.4 mg Vancomycin HCl (Vancomycin Per Pharmacy) 1 order IV UD [facility]; Protocol Vitamin D (Vitamin D3 25 Mcg Tablet) 50 mcg PO QDAY [facility] Last Admin: 05/27/22 08:31 Dose: 50 mcg Warfarin Sodium (Warfarin Per Pharmacy) 1 order PO UD [facility] A/P Assessment and plan (1) S/P total hip arthroplasty: Assessment and plan: POD#4 s/p L total hip arthroplasty readmitted POD#1 for supposed pneumonia, today started having erythema of leg, CT angio negative-pt has had WBL normalize today after several days of abx, still spiking fevers. I don't see karime purulent drainage and no specific incisional erythema so does not look like obvious surgical infection. Appears more like what I have seen with bleeding or DVT. At this point I don't see enough to warrant surgical washout however they diffuse erythema and warmth are concerning. If things are improving w abx nicholas e then I have nothing more to add. If not improving, then we could consider radiology aspirating the joint and doing a gram stain, cell count, and c&s. We will start daily dressing changes and prn to monitor the incision more closely Status: Acute Time Spent With Patient Time: Total time spent is greater than 50% in coordination of care (as documented) at patient's floor/unit and/or counseling patient:
[2022-05-27 20:37] LABS: Appearance,Urine CLEAR (Clear); Bilirubin,Urine Negative (Negative); Color,Urine YELLOW; Culture Indicated,Urine No; Glucose,Urine (UA) Negative (Negative); Ketones,Urine Negative (Negative); Leukocyte Esterase,Urine Negative /uL (Negative); Mucus,Urine FEW /hpf; Nitrate,Urine Negative (Negative); Protein,Urine Negative (Negative); Specific Gravity,Urine 1.038 (1.000-1.035); Urine Blood 0.03 mg/dL (Negative); Urine RBC 1 /hpf (0-3); Urine Squamous Epithelial Cell 0 /hpf (0-4); Urine WBC 1 /hpf (0-4); Urobilinogen,Urine Negative
[2022-05-27] MEDS: VANCOMYCIN 1,500 MG in 0.9 % SODIUM CHLORIDE 500 ML IV SCH (20:56)
[2022-05-27] MEDS: OLANZapine 2.5 MG TABLET PO SCH (21:13)
[2022-05-27] MEDS: ATORVASTATIN 40 MG TABLET PO SCH (21:13)
[2022-05-28] MEDS: CEFEPIME 2 GM VIAL IV SCH ×3 (03:32→20:27)
[2022-05-28] MEDS: LOPERAMIDE 2 MG CAPSULE PO PRN ×3 (05:03→10:39)
[2022-05-28] MEDS: 0.9 % SODIUM CHLORIDE 10 ML SYRINGE IV SCH ×3 (05:03→20:32)
[2022-05-28] MEDS ORDERED: CETIRIZINE 10 MG TABLET PO PRN (06:45)
--- NOTE | 2022-05-28 07:09 | EKG ---
[facility] Test Date: 2022-05-24 Pat Name: Yunior Jo Department: ED Room: Gender: Male Application Designer: ss : 1945 Requested By: Oren Tinoco Order Number: [id number] Reading MD: Jose Lozano Measurements Intervals [place] Rate: 85 P: 56 GA: 183 QRS: -20 QRSD: 79 T: 76 QT: 477 QTc: 568 Interpretive Statements Sinus rhythm Atrial premature complexes Borderline left axis deviation Low voltage, precordial leads Anteroseptal Q waves Prolonged QT interval Electronically Signed On 05-28-2022 7:09:34 PST by Jose Lozano /[email or web address]/[id number]/[id number]
[2022-05-28] MEDS: HYDROcodone/APAP 10/325MG TABLET PO PRN ×2 (07:33→18:23)
[2022-05-28 07:51] LABS: INR 1.6 (0.9-1.1); Prothrombin Time 19.2 sec (11.9-14.5)
[2022-05-28] MEDS: SERTRALINE 100 MG TABLET PO SCH (08:40)
[2022-05-28] MEDS: POTASSIUM CHLORIDE 20 MEQ TABLET PO SCH ×2 (08:40→18:24)
[2022-05-28] MEDS: VITAMIN D3 25 MCG TABLET PO SCH (08:40)
[2022-05-28] MEDS: GABAPENTIN 400 MG CAPSULE PO SCH ×3 (08:40→20:27)
[2022-05-28] MEDS: MULTIVIT,THER IRON,CA,FA & MIN 1 TABLET PO SCH (08:41)
[2022-05-28] MEDS: TAMSULOSIN 0.4 MG CAPSULE PO SCH ×2 (08:41→20:28)
[2022-05-28] MEDS: ACYCLOVIR 400 MG TABLET PO SCH ×3 (08:41→20:28)
[2022-05-28] MEDS: PRIMIDONE 50 MG TABLET PO SCH ×3 (08:41→20:28)
[2022-05-28] MEDS: Mirabegron 50 mg tablet extended release 24 hr PO SCH (08:43)
[2022-05-28] MEDS: DOCUSATE SODIUM 100 MG CAPSULE PO SCH ×2 (09:11→20:28)
[2022-05-28] MEDS: VANCOMYCIN 1,500 MG in 0.9 % SODIUM CHLORIDE 500 ML IV SCH ×2 (09:33→20:31)
[2022-05-28] MEDS ORDERED: WARFARIN 7.5 MG TABLET PO ONE (14:00)
[2022-05-28] MEDS ORDERED: FUROSEMIDE 20 MG/2 ML VIAL IV ONE (14:53)
--- NOTE | 2022-05-28 15:08 | Internal Med Progress Note ---
SUBJECTIVE Subjective Patient information: Note initiated : 05/28/22 at 2:53 pm Service Date, if different from initiated Date: [] Patient: Yunior Jo 76 y/o M admitted on 05/24/22 for Post op fever. 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 He has had COVID and been SOB since with "scarring" of his lungs. He has intermittently required oxygen. He presented with weakness, cough productive of yellow sputum x one month and SOB. His workukp in the ED included WBC 16, K 2.8, PCT 0.24. He was placed on zosyn. May 28, I have assumed care from the prior hospitalist. He has been recurrently febrile during the admission and no cultures were ordered. CTA Chest notes no pneumonia but does note pulmonary fibrosis (consistent with his stated Hx of covid with "scarring" and prior O2 use and presenting with hypoxia) and cardiomegaly.. He is now on room air. His surgical wound was modestly erythematous but without purulence. Serosanguinous drainage is noted. Abx changed overnight to cefepime/vanc. Ortho has not previously been consulted but has now seen patient and is monitoring. Will continue vanc/cefepime, monitor blood cultures and check echo. Constitutional Vitals: Vital Signs Temp Pulse Resp BP Pulse Ox O2 Del Method O2 Flow Rate 99.1 F H 60 18 139/58 100 Nasal Cannula 2 05/28/22 12:01 05/28/22 12:01 05/28/22 12:01 05/28/22 12:01 05/28/22 12:01 05/28/22 12:32 05/28/22 12:32 Period Temp Pulse Resp BP Sys/Edwards Pulse Ox O2 Del Method O2 Flow Rate Last 24 Hr 97.9 F-100.8 F 56-86 16-20 115-143/56-78 93-100 Nasal Cannula- Nasal Cannula 2-2 Intake and Output 05/28/22 05/28/22 05/28/22 03:59 11:59 19:59 Intake Total 1000 650 Output Total 575 450 175 Balance 425 200 -175 Weight 99.337 kg Intake & Output: Intake & Output 05/28/22 05/28/22 05/28/22 03:59 11:59 19:59 Intake Total 1000 650 Output Total 575 450 175 Balance 425 200 -175 Weight 99.337 kg Intake: IV 500 500 Vancomycin 1,500 mg In Sodium 500 500 Chloride 0.9% 500 ml @ 333.3 mls/hr IV Q12H [facility] Rx#: [id number] Oral 500 150 Output: Void Amount 575 200 175 Stool 250 Other: Meal Breakfast Lunch Percent of Meal Consumed 100% 100% Feeding Ability Assist with Tray Set Up Assist with Tray Set Up Urine Appearance Clear Clear Clear Urine Color Yellow Yellow Yellow Pale Urine Odor Normal Stool Size Moderate Stool Color Brown Stool Consistency Liquid Loose # Voids 1 # Bowel Movements 1 # of times incontinent of 0 Bowels General appearance: average body habitus and no acute distress Head Head exam: Present atraumatic, normal inspection and normocephalic ENT ENT exam: Present mucous membranes moist Respiratory Respiratory exam: Present normal respiratory exam Additional comments: mild dry crakcle at bases Cardiovascular Cardiovascular exam: Present normal rate and rhythm GI/Abdominal GI/Abdominal exam: Present normal bowel sounds and soft; Absent distended Neurological Exam Neurological exam: Present CN II-XII intact and oriented X3 OBJ DATA Labs 05/27/22 05:19 05/27/22 05:19 Labs: Abnormal Lab Results 05/28/22 05/27/22 05/27/22 07:07 20:09 05:19 WBC RBC Hgb Hct Immature Gran % (Auto) [place] # (Auto) Immature Gran # PT 19.2 H INR 1.6 H Anion Gap Calcium AST C-Reactive Protein 15.00 H Total Protein Albumin Urine Mucus Few A 05/27/22 05/27/22 05/27/22 05:19 05:19 05:19 WBC RBC 2.99 L Hgb 9.1 L Hct 28.8 L Immature Gran % (Auto) 1.0 H [place] # (Auto) Immature Gran # 0.11 H PT 17.0 H INR 1.3 H Anion Gap Calcium 8.2 L AST 44 H C-Reactive Protein Total Protein 5.7 L Albumin 2.8 L Urine Mucus 05/26/22 05/26/22 05/26/22 05:15 05:15 05:15 WBC 12.3 H RBC 2.93 L Hgb 8.9 L Hct 27.7 L Immature Gran % (Auto) 1.1 H [place] # (Auto) 0.96 H Immature Gran # 0.14 H PT 16.1 H INR 1.2 H Anion Gap 7.0 L Calcium 8.2 L AST C-Reactive Protein Total Protein 5.6 L Albumin 2.9 L Urine Mucus Meds: Medications Acetaminophen (Acetaminophen 325 Mg Tablet) 650 mg PO Q6HP PRN; Protocol PRN Reason: Per Pain Protocol/Fever > 101 Last Admin: 05/27/22 23:40 Dose: 650 mg Hydrocodone Bitart/Acetaminophen (Hydrocodone/Apap 10/325mg Tablet) 1 - 2 tab PO Q4HP PRN; Protocol PRN Reason: Per Pain Protocol Last Admin: 05/28/22 07:33 Dose: 1 tab Acyclovir (Acyclovir 400 Mg Tablet) 400 mg PO TID [facility]; Protocol Last Admin: 05/28/22 08:41 Dose: 400 mg Albuterol/Ipratropium (Ipratropium/Albuterol 3 Ml Ampul.Neb) 3 ml NEB Q4HRT PRN PRN Reason: Wheezing Atorvastatin Calcium (Atorvastatin 40 Mg Tablet) 40 mg PO HS [facility] Last Admin: 05/27/22 21:13 Dose: 40 mg Calcium Carbonate/Glycine (Calcium Carbonate 500 Mg Tab.Chew) 500 mg CHEWED Q4HP PRN PRN Reason: Dyspepsia Cefepime HCl (Cefepime 2 Gm Vial) 2 gm IV Q8H [facility]; Protocol Last Admin: 05/28/22 12:09 Dose: 2 gm Cetirizine HCl (Cetirizine 10 Mg Tablet) 10 mg PO DAILYP PRN PRN Reason: Allergic Symptoms Last Admin: 05/28/22 10:39 Dose: 10 mg Docusate Sodium (Docusate Sodium 100 Mg Capsule) 100 mg PO BID [facility] Last Admin: 05/28/22 09:11 Dose: Not Given Furosemide (Furosemide 20 Mg/2 Ml Vial) 20 mg IV ONCE ONE Stop: 05/28/22 14:54 Gabapentin (Gabapentin 400 Mg Capsule) 800 mg PO QHS [facility] Last Admin: 05/27/22 21:13 Dose: 800 mg Gabapentin (Gabapentin 400 Mg Capsule) 400 mg PO BID@0800,1200 [facility] Last Admin: 05/28/22 11:54 Dose: 400 mg Guaifenesin (Guaifenesin/Dextromethorphan 5ml Ud Cup) 10 ml PO Q4HP PRN PRN Reason: Cough Hydromorphone HCl (Hydromorphone 0.5 Mg/0.5 Ml Syringe) 0.5 mg IV Q4HP PRN; Protocol PRN Reason: Per Pain Protocol Vancomycin HCl 1,500 mg/ (Sodium Chloride) 500 mls @ 333.3 mls/hr IV Q12H [facility] Last Infusion: 05/28/22 11:04 Dose: Infused Iron Carb/Multivit/[place]/Folic Acid (Multivit,Ther Iron,Ca,Fa & Min 1 Tablet) 1 tab PO DAILY [facility] Last Admin: 05/28/22 08:41 Dose: 1 tab Lactulose (Lactulose 20 Gm/30 Ml Oral.Cindy) 10 gm PO DAILYP PRN PRN Reason: Constipation Loperamide HCl (Loperamide 2 Mg Capsule) 2 mg PO PRN PRN PRN Reason: Diarrhea Last Admin: 05/28/22 10:39 Dose: 2 mg Melatonin (Melatonin 3 Mg Tablet) 9 mg PO HSP PRN PRN Reason: Sleep Nitroglycerin (Nitroglycerin 0.4 Mg Tab.Subl) 0.4 mg SL Q5M PRN PRN Reason: Angina Olanzapine (Olanzapine 2.5 Mg Tablet) 2.5 mg PO QHS [facility] Last Admin: 05/27/22 21:13 Dose: 2.5 mg Ondansetron HCl (Ondansetron 4 Mg/2 Ml Vial) 4 mg IV Q4HP PRN; Protocol PRN Reason: Nausea And Vomiting Mirabegron 50 Mg Tablet Extended Release 24 Hr 1 dose PO DAILY [facility] Last Admin: 05/28/22 08:43 Dose: 1 dose Potassium Chloride (Potassium Chloride 20 Meq Tablet) 40 meq PO BIDCC [facility] Last Admin: 05/28/22 08:40 Dose: 40 meq Primidone (Primidone 50 Mg Tablet) 50 mg PO TID [facility] Last Admin: 05/28/22 08:41 Dose: 50 mg Senna (Sennosides 1 Tablet) 2 tab PO HSP PRN PRN Reason: Constipation Sertraline HCl (Sertraline 100 Mg Tablet) 200 mg PO DAILY [facility] Last Admin: 05/28/22 08:40 Dose: 200 mg Sodium Chloride (0.9 % Sodium Chloride 10 Ml Syringe) 10 ml IV Q8 [facility] Last Admin: 05/28/22 05:03 Dose: 10 ml Tamsulosin HCl (Tamsulosin 0.4 Mg Capsule) 0.4 mg PO BID [facility] Last Admin: 05/28/22 08:41 Dose: 0.4 mg Vancomycin HCl (Vancomycin Per Pharmacy) 1 order IV UD [facility]; Protocol Vitamin D (Vitamin D3 25 Mcg Tablet) 50 mcg PO QDAY [facility] Last Admin: 05/28/22 08:40 Dose: 50 mcg Warfarin Sodium (Warfarin Per Pharmacy) 1 order PO UD [facility] A/P Assessment and plan (1) S/P total hip arthroplasty: Assessment and plan: - ortho now following - continue vanc/cefepime - monitor cultures and WBC - PT working with patient Status: Acute (2) Hypokalemia: Assessment and plan: - corrected, recheck Status: Acute (3) Pulmonary fibrosis: Assessment and plan: - likley secondary to covid - may need home o2 - no evidence of pneumonia Status: Acute (4) BPH (benign prostatic hypertrophy) with urinary obstruction: Assessment and plan: - continue tamsulosin Status: Chronic Time Spent With Patient Time: Total time spent is greater than 50% in coordination of care (as documented) at patient's floor/unit and/or counseling patient: Subsequent: Total time with patient: 25 - 34 minutes QUALITY VTE Deep Vein Thrombosis/Pulmonary Embolism Present on Admission: Yes
[2022-05-28] MEDS: ACETAMINOPHEN 325 MG TABLET PO PRN (19:07)
[2022-05-28] MEDS: OLANZapine 2.5 MG TABLET PO SCH (20:27)
[2022-05-28] MEDS: ATORVASTATIN 40 MG TABLET PO SCH (20:28)
[2022-05-29] MEDS: ACETAMINOPHEN 325 MG TABLET PO PRN (00:55)
[2022-05-29] MEDS: HYDROcodone/APAP 10/325MG TABLET PO PRN ×4 (00:56→17:30)
[2022-05-29] MEDS: CEFEPIME 2 GM VIAL IV SCH ×2 (04:15→13:18)
[2022-05-29] MEDS: 0.9 % SODIUM CHLORIDE 10 ML SYRINGE IV SCH ×3 (04:16→21:20)
[2022-05-29 07:05] LABS: Phosphorous 3.5 mg/dL (2.5-4.5)
[2022-05-29 07:07] LABS: Basophils # (Auto) 0.06 K/mcL (0.00-0.30); Basophils % (Auto) 0.7 % (0.0-2.0); Eosinophils # (Auto) 0.56 K/mcL (0.00-0.70); Eosinophils % (Auto) 6.5 % (0.0-7.0); Hematocrit 30.8 % (40.1-51.0); Hemoglobin 9.8 g/dL (13.7-17.5); Lymphocytes # (Auto) 2.23 K/mcL (1.50-4.80); Mean Corpuscular HGB Conc 31.8 g/dL (31.0-36.0); Mean Platelet Volume 10.1 fL (8.8-12.5); Monocytes # (Auto) 0.76 K/mcL (0.10-0.90); Monocytes % (Auto) 8.8 % (1.0-12.0); Neutrophils % (Auto) 56.8 % (38.0-78.0); Platelet Count 196 K/mcL (140-440); RBC 3.21 M/mcL (4.63-6.08); Red Cell Distribution Width 13.3 % (11.5-14.5); WBC 8.6 K/mcL (4.5-11.0)
[2022-05-29 07:08] LABS: Blood Urea Nitrogen 10 mg/dL (8-23); Carbon Dioxide 31 mmol/L (22-30); Chloride 102 mmol/L (96-108); Glomerular Filtration Rate 85; Glucose 106 mg/dL (70-105)
[2022-05-29] MEDS: TAMSULOSIN 0.4 MG CAPSULE PO SCH ×2 (08:23→21:19)
[2022-05-29] MEDS: VITAMIN D3 25 MCG TABLET PO SCH (08:23)
[2022-05-29] MEDS: POTASSIUM CHLORIDE 20 MEQ TABLET PO SCH ×2 (08:23→17:30)
[2022-05-29] MEDS: MULTIVIT,THER IRON,CA,FA & MIN 1 TABLET PO SCH (08:23)
[2022-05-29] MEDS: Mirabegron 50 mg tablet extended release 24 hr PO SCH (08:24)
[2022-05-29] MEDS: PRIMIDONE 50 MG TABLET PO SCH ×3 (08:24→21:20)
[2022-05-29] MEDS: ACYCLOVIR 400 MG TABLET PO SCH ×3 (08:24→21:19)
[2022-05-29] MEDS: GABAPENTIN 400 MG CAPSULE PO SCH ×3 (08:24→21:20)
[2022-05-29] MEDS: SERTRALINE 100 MG TABLET PO SCH (08:24)
[2022-05-29] MEDS: DOCUSATE SODIUM 100 MG CAPSULE PO SCH ×2 (10:15→21:19)
[2022-05-29 10:40] LABS: INR 1.5 (0.9-1.1); Prothrombin Time 19.2 sec (11.9-14.5)
[2022-05-29] MEDS: VANCOMYCIN 1,500 MG in 0.9 % SODIUM CHLORIDE 500 ML IV SCH (11:04)
[2022-05-29] MEDS ORDERED: IOPAMIDOL 100 ML BOTTLE IV ONE (12:43)
--- NOTE | 2022-05-29 13:11 | Cat Scan Report ---
CLINICAL INFORMATION: Left hip arthroplasty six days prior now with pain and swelling COMPARISON: None. TECHNIQUE: 0.625 mm helical slices were obtained from the mid L4 through the proximal tibia regions1. Following reconstruction, 2.5 mm sagittal, coronal and axial reformations were processed. The exam was reviewed in bone and soft tissue windows. The exam was performed using radiation dose optimization techniques including, but not limited to, automated exposure control, adjustment of mA and/or kV according to patient size and use of iterative reconstruction technique. FINDINGS: Left total hip prostheses is anatomically aligned. A very small amount of gas is seen in the intramedullary region anterior to the femoral stem in the proximal femoral diaphysis. This is presumably still postsurgical. There is no specific radiographic evidence for osteomyelitis. There is no excess fluid within the left hip joint. There is moderate edema in the anterior compartment of the upper thigh at the surgical site. Associated 3.5 cm fluid collection is likely a postoperative seroma. Moderate subcutaneous edema is seen throughout the proximal and mid left thigh. The right hip and both SI joints show mild degeneration. Prostate, seminal vesicles, urinary bladder and visualized small large bowel are normal. There is no free fluid, free air or adenopathy. Bilateral hydroceles seen in the scrotal region. IMPRESSION: 1. There is no specific radiographic evidence for either osteomyelitis or septic arthritis. Two tiny air bubbles are seen in the anterior intramedullary region adjacent femoral stem prostheses are likely related to recent surgery and not infection 2. Moderate edema in the anterior compartment of the left upper thigh overlying the surgical site. A 3.5 cm fluid collection within the anterior compartment is likely a postoperative seroma. Abscess less likely. Interpreted and Authenticated by: Diego Alvarado 05/29/22
--- NOTE | 2022-05-29 13:17 | Orthopedic Progress Note ---
SUBJECTIVE Subjective Patient information: Note initiated : 05/29/22 at 1:13 pm Service Date, if different from initiated Date: [] Patient: Yunior Jo 76 y/o M admitted on 05/24/22 for Post op fever. Chief Complaint: [] Interval history: pain tolerable, does not feel it is worsening Constitutional Vitals: Vital Signs Temp Pulse Resp BP Pulse Ox O2 Del Method O2 Flow Rate 98.4 F 69 20 130/73 99 Nasal Cannula 2 05/29/22 12:01 05/29/22 12:01 05/29/22 12:01 05/29/22 12:01 05/29/22 12:01 05/29/22 12:01 05/29/22 12:01 Period Temp Pulse Resp BP Sys/Edwards Pulse Ox O2 Del Method O2 Flow Rate Last 24 Hr 98.2 F-101.2 F 58-96 16-22 96-148/49-94 91-99 Nasal Cannula- Nasal Cannula 1-2 Intake and Output 05/29/22 05/29/22 05/29/22 03:59 11:59 19:59 Intake Total 700 Output Total 401 700 Balance -401 0 Intake & Output: Intake & Output 05/29/22 05/29/22 05/29/22 03:59 11:59 19:59 Intake Total 700 Output Total 401 700 Balance -401 0 Intake: IV 500 Vancomycin 1,500 mg In Sodium 500 Chloride 0.9% 500 ml @ 333.3 mls/hr IV Q12H [facility] Rx#: [id number] Oral 200 Output: Void Amount 400 700 # of times incontinent of urine 1 Other: Urine Appearance Clear Clear Urine Color Bright Yellow Yellow Skin Additional comments: skin still w light erythema, incision without active drainage, dressing from yesterday has slight serous drainage OBJ DATA Labs 05/29/22 05:11 05/29/22 05:11 Labs: Abnormal Lab Results 05/29/22 05/29/22 05/29/22 05:11 05:11 05:06 RBC 3.21 L Hgb 9.8 L Hct 30.8 L Immature Gran % (Auto) 1.2 H Immature Gran # 0.10 H PT 19.2 H INR 1.5 H Carbon Dioxide 31 H Anion Gap 7.0 L Glucose 106 H Calcium AST C-Reactive Protein Total Protein Albumin Urine Mucus 02/05/27/22 05/27/22 07:07 20:09 05:19 RBC Hgb Hct Immature Gran % (Auto) Immature Gran # PT 19.2 H INR 1.6 H Carbon Dioxide Anion Gap Glucose Calcium AST C-Reactive Protein 15.00 H Total Protein Albumin Urine Mucus Few A 05/27/22 05/27/22 05/27/22 05:19 05:19 05:19 RBC 2.99 L Hgb 9.1 L Hct 28.8 L Immature Gran % (Auto) 1.0 H Immature Gran # 0.11 H PT 17.0 H INR 1.3 H Carbon Dioxide Anion Gap Glucose Calcium 8.2 L AST 44 H C-Reactive Protein Total Protein 5.7 L Albumin 2.8 L Urine Mucus Meds: Medications Acetaminophen (Acetaminophen 325 Mg Tablet) 650 mg PO Q6HP PRN; Protocol PRN Reason: Per Pain Protocol/Fever > 101 Last Admin: 05/29/22 00:55 Dose: 650 mg Hydrocodone Bitart/Acetaminophen (Hydrocodone/Apap 10/325mg Tablet) 1 - 2 tab PO Q4HP PRN; Protocol PRN Reason: Per Pain Protocol Last Admin: 05/29/22 11:44 Dose: 1 tab Acyclovir (Acyclovir 400 Mg Tablet) 400 mg PO TID [facility]; Protocol Last Admin: 05/29/22 08:24 Dose: 400 mg Albuterol/Ipratropium (Ipratropium/Albuterol 3 Ml Ampul.Neb) 3 ml NEB Q4HRT PRN PRN Reason: Wheezing Atorvastatin Calcium (Atorvastatin 40 Mg Tablet) 40 mg PO HS [facility] Last Admin: 05/28/22 20:28 Dose: 40 mg Calcium Carbonate/Glycine (Calcium Carbonate 500 Mg Tab.Chew) 500 mg CHEWED Q4HP PRN PRN Reason: Dyspepsia Cefepime HCl (Cefepime 2 Gm Vial) 2 gm IV Q8H [facility]; Protocol Last Admin: 05/29/22 04:15 Dose: 2 gm Cetirizine HCl (Cetirizine 10 Mg Tablet) 10 mg PO DAILYP PRN PRN Reason: Allergic Symptoms Last Admin: 05/28/22 10:39 Dose: 10 mg Docusate Sodium (Docusate Sodium 100 Mg Capsule) 100 mg PO BID [facility] Last Admin: 05/29/22 10:15 Dose: Not Given Gabapentin (Gabapentin 400 Mg Capsule) 800 mg PO QHS [facility] Last Admin: 05/28/22 20:27 Dose: 800 mg Gabapentin (Gabapentin 400 Mg Capsule) 400 mg PO BID@0800,1200 [facility] Last Admin: 05/29/22 08:24 Dose: 400 mg Guaifenesin (Guaifenesin/Dextromethorphan 5ml Ud Cup) 10 ml PO Q4HP PRN PRN Reason: Cough Hydromorphone HCl (Hydromorphone 0.5 Mg/0.5 Ml Syringe) 0.5 mg IV Q4HP PRN; Protocol PRN Reason: Per Pain Protocol Vancomycin HCl 1,500 mg/ (Sodium Chloride) 500 mls @ 333.3 mls/hr IV Q24H [facility] Iron Carb/Multivit/Oim Consultant/Folic Acid (Multivit,Ther Iron,Ca,Fa & Min 1 Tablet) 1 tab PO DAILY [facility] Last Admin: 05/29/22 08:23 Dose: 1 tab Lactulose (Lactulose 20 Gm/30 Ml Oral.Cindy) 10 gm PO DAILYP PRN PRN Reason: Constipation Loperamide HCl (Loperamide 2 Mg Capsule) 2 mg PO PRN PRN PRN Reason: Diarrhea Last Admin: 05/28/22 10:39 Dose: 2 mg Melatonin (Melatonin 3 Mg Tablet) 9 mg PO HSP PRN PRN Reason: Sleep Nitroglycerin (Nitroglycerin 0.4 Mg Tab.Subl) 0.4 mg SL Q5M PRN PRN Reason: Angina Olanzapine (Olanzapine 2.5 Mg Tablet) 2.5 mg PO QHS [facility] Last Admin: 05/28/22 20:27 Dose: 2.5 mg Ondansetron HCl (Ondansetron 4 Mg/2 Ml Vial) 4 mg IV Q4HP PRN; Protocol PRN Reason: Nausea And Vomiting Mirabegron 50 Mg Tablet Extended Release 24 Hr 1 dose PO DAILY [facility] Last Admin: 05/29/22 08:24 Dose: 1 dose Potassium Chloride (Potassium Chloride 20 Meq Tablet) 40 meq PO BIDCC [facility] Last Admin: 05/29/22 08:23 Dose: 40 meq Primidone (Primidone 50 Mg Tablet) 50 mg PO TID [facility] Last Admin: 05/29/22 08:24 Dose: 50 mg Senna (Sennosides 1 Tablet) 2 tab PO HSP PRN PRN Reason: Constipation Sertraline HCl (Sertraline 100 Mg Tablet) 200 mg PO DAILY [facility] Last Admin: 05/29/22 08:24 Dose: 200 mg Sodium Chloride (0.9 % Sodium Chloride 10 Ml Syringe) 10 ml IV Q8 [facility] Last Admin: 05/29/22 04:16 Dose: 10 ml Tamsulosin HCl (Tamsulosin 0.4 Mg Capsule) 0.4 mg PO BID [facility] Last Admin: 05/29/22 08:23 Dose: 0.4 mg Vancomycin HCl (Vancomycin Per Pharmacy) 1 order IV UD [facility]; Protocol Vitamin D (Vitamin D3 25 Mcg Tablet) 50 mcg PO QDAY [facility] Last Admin: 05/29/22 08:23 Dose: 50 mcg Warfarin Sodium (Warfarin Per Pharmacy) 1 order PO UD [facility] Warfarin Sodium (Warfarin 5 Mg Tablet) 10 mg PO ONCE@1400 [facility] Stop: 05/29/22 14:01 A/P Assessment and plan (1) S/P total hip arthroplasty: Assessment and plan: -still not definitive evidence of deep prosthetic joint infection, WBC nl, incision w/o purulent drainage, fevers and redness to thigh is concerning -a CT has been ordered which I am sure will show a fluid collection given recent surgery and anticoagulation. Hip aspiration and fluid analysis is likely the only way to determine deep septic joint. This could be done by radiology. Also an U/S may be worth analyzing for thrombosis. Status: Acute Time Spent With Patient Time: Total time spent is greater than 50% in coordination of care (as documented) at patient's floor/unit and/or counseling patient:
[2022-05-29] MEDS ORDERED: WARFARIN 5 MG TABLET PO ONE (14:00)
[2022-05-29] MEDS ORDERED: FUROSEMIDE 20 MG/2 ML VIAL IV SCH (15:13)
--- NOTE | 2022-05-29 15:20 | Internal Med Progress Note ---
SUBJECTIVE Subjective Patient information: Note initiated : 05/29/22 at 3:17 pm Service Date, if different from initiated Date: [] Patient: Yunior Jo 76 y/o M admitted on 05/24/22 for Post op fever. 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 He has had COVID and been SOB since with "scarring" of his lungs. He has intermittently required oxygen. He presented with weakness, cough productive of yellow sputum x one month and SOB. His workukp in the ED included WBC 16, K 2.8, PCT 0.24. He was placed on zosyn. May 28, I have assumed care from the prior hospitalist. He has been recurrently febrile during the admission and no cultures were ordered. CTA Chest notes no pneumonia but does note pulmonary fibrosis (consistent with his stated Hx of covid with "scarring" and prior O2 use and presenting with hypoxia) and cardiomegaly.. He is now on room air. His surgical wound was modestly erythematous but without purulence. Sero-sanguinous drainage is noted. Abx changed overnight to cefepime/vanc. Ortho has not previously been consulted but has now seen patient and is monitoring. Will continue vanc/cefepime, monitor blood cultures and check echo. May 29, echo unremarkable, EF 60-65. Blood cultures NGTD. Pt was febrile again last night but WBC improved to 8.6. CT Pelvis notes no evidence of infection at the left hip surgical site, findings are most consistent with post-operative changes. Will stop IV Abx and monitor fever curve and WBC. Pt edematous from ABx fluids. Will give one dose furosemide. Constitutional Vitals: Vital Signs Temp Pulse Resp BP Pulse Ox O2 Del Method O2 Flow Rate 98.4 F 69 20 130/73 99 Nasal Cannula 2 05/29/22 12:01 05/29/22 12:01 05/29/22 12:01 05/29/22 12:01 05/29/22 12:01 05/29/22 12:01 05/29/22 12:01 Period Temp Pulse Resp BP Sys/Edwards Pulse Ox O2 Del Method O2 Flow Rate Last 24 Hr 98.2 F-101.2 F 58-96 16-22 96-148/49-94 91-99 Nasal Cannula- Nasal Cannula 1-2 Intake and Output 05/29/22 05/29/22 05/29/22 03:59 11:59 19:59 Intake Total 700 Output Total 401 700 150 Balance -401 0 -150 Intake & Output: Intake & Output 05/29/22 05/29/22 05/29/22 03:59 11:59 19:59 Intake Total 700 Output Total 401 700 150 Balance -401 0 -150 Intake: IV 500 Vancomycin 1,500 mg In Sodium 500 Chloride 0.9% 500 ml @ 333.3 mls/hr IV Q12H [facility] Rx#: [id number] Oral 200 Output: Void Amount 400 700 150 # of times incontinent of urine 1 Other: Urine Appearance Clear Clear Clear Urine Color Bright Yellow Yellow Yellow General appearance: average body habitus and no acute distress Head Head exam: Present atraumatic, normal inspection and normocephalic ENT ENT exam: Present mucous membranes moist Respiratory Respiratory exam: Present decreased breath sounds Additional comments: dry crackles Cardiovascular Cardiovascular exam: Present normal rate and rhythm GI/Abdominal GI/Abdominal exam: Present normal bowel sounds and soft; Absent distended Neurological Exam Neurological exam: Present CN II-XII intact and oriented X3 OBJ DATA Labs 05/29/22 05:11 05/29/22 05:11 Labs: Abnormal Lab Results 05/29/22 05/29/22 05/29/22 05:11 05:11 05:06 RBC 3.21 L Hgb 9.8 L Hct 30.8 L Immature Gran % (Auto) 1.2 H Immature Gran # 0.10 H PT 19.2 H INR 1.5 H Carbon Dioxide 31 H Anion Gap 7.0 L Glucose 106 H Calcium AST C-Reactive Protein Total Protein Albumin Urine Mucus 05/28/22 05/27/22 05/27/22 07:07 20:09 05:19 RBC Hgb Hct Immature Gran % (Auto) Immature Gran # PT 19.2 H INR 1.6 H Carbon Dioxide Anion Gap Glucose Calcium AST C-Reactive Protein 15.00 H Total Protein Albumin Urine Mucus Few A 05/27/22 05/27/22 05/27/22 05:19 05:19 05:19 RBC 2.99 L Hgb 9.1 L Hct 28.8 L Immature Gran % (Auto) 1.0 H Immature Gran # 0.11 H PT 17.0 H INR 1.3 H Carbon Dioxide Anion Gap Glucose Calcium 8.2 L AST 44 H C-Reactive Protein Total Protein 5.7 L Albumin 2.8 L Urine Mucus Meds: Medications Acetaminophen (Acetaminophen 325 Mg Tablet) 650 mg PO Q6HP PRN; Protocol PRN Reason: Per Pain Protocol/Fever > 101 Last Admin: 05/29/22 00:55 Dose: 650 mg Hydrocodone Bitart/Acetaminophen (Hydrocodone/Apap 10/325mg Tablet) 1 - 2 tab PO Q4HP PRN; Protocol PRN Reason: Per Pain Protocol Last Admin: 05/29/22 11:44 Dose: 1 tab Acyclovir (Acyclovir 400 Mg Tablet) 400 mg PO TID [facility]; Protocol Last Admin: 05/29/22 14:21 Dose: 400 mg Albuterol/Ipratropium (Ipratropium/Albuterol 3 Ml Ampul.Neb) 3 ml NEB Q4HRT PRN PRN Reason: Wheezing Atorvastatin Calcium (Atorvastatin 40 Mg Tablet) 40 mg PO HS [facility] Last Admin: 05/28/22 20:28 Dose: 40 mg Calcium Carbonate/Glycine (Calcium Carbonate 500 Mg Tab.Chew) 500 mg CHEWED Q4HP PRN PRN Reason: Dyspepsia Cetirizine HCl (Cetirizine 10 Mg Tablet) 10 mg PO DAILYP PRN PRN Reason: Allergic Symptoms Last Admin: 05/28/22 10:39 Dose: 10 mg Docusate Sodium (Docusate Sodium 100 Mg Capsule) 100 mg PO BID [facility] Last Admin: 05/29/22 10:15 Dose: Not Given Furosemide (Furosemide 20 Mg/2 Ml Vial) 20 mg IV ONCE [facility] Stop: 05/29/22 19:00 Gabapentin (Gabapentin 400 Mg Capsule) 800 mg PO QHS [facility] Last Admin: 05/28/22 20:27 Dose: 800 mg Gabapentin (Gabapentin 400 Mg Capsule) 400 mg PO BID@0800,1200 [facility] Last Admin: 05/29/22 13:18 Dose: 400 mg Guaifenesin (Guaifenesin/Dextromethorphan 5ml Ud Cup) 10 ml PO Q4HP PRN PRN Reason: Cough Hydromorphone HCl (Hydromorphone 0.5 Mg/0.5 Ml Syringe) 0.5 mg IV Q4HP PRN; Protocol PRN Reason: Per Pain Protocol Iron Carb/Multivit/Lead Installer/Folic Acid (Multivit,Ther Iron,Ca,Fa & Min 1 Tablet) 1 tab PO DAILY [facility] Last Admin: 05/29/22 08:23 Dose: 1 tab Lactulose (Lactulose 20 Gm/30 Ml Oral.Cindy) 10 gm PO DAILYP PRN PRN Reason: Constipation Loperamide HCl (Loperamide 2 Mg Capsule) 2 mg PO PRN PRN PRN Reason: Diarrhea Last Admin: 05/28/22 10:39 Dose: 2 mg Melatonin (Melatonin 3 Mg Tablet) 9 mg PO HSP PRN PRN Reason: Sleep Nitroglycerin (Nitroglycerin 0.4 Mg Tab.Subl) 0.4 mg SL Q5M PRN PRN Reason: Angina Olanzapine (Olanzapine 2.5 Mg Tablet) 2.5 mg PO QHS [facility] Last Admin: 05/28/22 20:27 Dose: 2.5 mg Ondansetron HCl (Ondansetron 4 Mg/2 Ml Vial) 4 mg IV Q4HP PRN; Protocol PRN Reason: Nausea And Vomiting Mirabegron 50 Mg Tablet Extended Release 24 Hr 1 dose PO DAILY [facility] Last Admin: 05/29/22 08:24 Dose: 1 dose Potassium Chloride (Potassium Chloride 20 Meq Tablet) 40 meq PO BIDCC [facility] Last Admin: 05/29/22 08:23 Dose: 40 meq Primidone (Primidone 50 Mg Tablet) 50 mg PO TID [facility] Last Admin: 05/29/22 14:21 Dose: 50 mg Senna (Sennosides 1 Tablet) 2 tab PO HSP PRN PRN Reason: Constipation Sertraline HCl (Sertraline 100 Mg Tablet) 200 mg PO DAILY [facility] Last Admin: 05/29/22 08:24 Dose: 200 mg Sodium Chloride (0.9 % Sodium Chloride 10 Ml Syringe) 10 ml IV Q8 [facility] Last Admin: 05/29/22 14:18 Dose: 10 ml Tamsulosin HCl (Tamsulosin 0.4 Mg Capsule) 0.4 mg PO BID [facility] Last Admin: 05/29/22 08:23 Dose: 0.4 mg Vitamin D (Vitamin D3 25 Mcg Tablet) 50 mcg PO QDAY [facility] Last Admin: 05/29/22 08:23 Dose: 50 mcg Warfarin Sodium (Warfarin Per Pharmacy) 1 order PO UD [facility] A/P Assessment and plan (1) S/P total hip arthroplasty: Assessment and plan: - ortho now following - discontinue vanc/cefepime - monitor cultures and WBC - PT working with patient Status: Acute (2) Hypokalemia: Assessment and plan: - corrected Status: Acute (3) Pulmonary fibrosis: Assessment and plan: -likely secondary to covid - may need home o2 - no evidence of pneumonia Status: Acute (4) BPH (benign prostatic hypertrophy) with urinary obstruction: Assessment and plan: - continue tamsulosin Status: Chronic Time Spent With Patient Time: Total time spent is greater than 50% in coordination of care (as documented) at patient's floor/unit and/or counseling patient: Subsequent: Total time with patient: 25 - 34 minutes QUALITY VTE Deep Vein Thrombosis/Pulmonary Embolism Present on Admission: Yes
[2022-05-29] MEDS: OLANZapine 2.5 MG TABLET PO SCH (21:20)
[2022-05-29] MEDS: ATORVASTATIN 40 MG TABLET PO SCH (21:20)
[2022-05-30] MEDS: 0.9 % SODIUM CHLORIDE 10 ML SYRINGE IV SCH ×3 (05:19→20:38)
[2022-05-30 07:27] LABS: INR 1.9 (0.9-1.1); Prothrombin Time 22.3 sec (11.9-14.5)
[2022-05-30 07:36] LABS: Blood Urea Nitrogen 9 mg/dL (8-23); Calcium 9.1 mg/dL (8.6-10.4); Carbon Dioxide 28 mmol/L (22-30); Chloride 98 mmol/L (96-108); Glomerular Filtration Rate 81; Glucose 104 mg/dL (70-105)
[2022-05-30] MEDS: POTASSIUM CHLORIDE 20 MEQ TABLET PO SCH ×2 (07:51→17:37)
[2022-05-30] MEDS: GABAPENTIN 400 MG CAPSULE PO SCH ×3 (07:52→20:38)
[2022-05-30 08:20] LABS: Basophils # (Auto) 0.06 K/mcL (0.00-0.30); Basophils % (Auto) 0.6 % (0.0-2.0); Eosinophils # (Auto) 0.73 K/mcL (0.00-0.70); Eosinophils % (Auto) 7.4 % (0.0-7.0); Hematocrit 30.2 % (40.1-51.0); Hemoglobin 9.7 g/dL (13.7-17.5); Lymphocytes # (Auto) 2.15 K/mcL (1.50-4.80); Lymphocytes % (Auto) 21.8 % (15.5-49.0); Mean Cell Volume 93.8 fL (80.0-100.0); Mean Corpuscular HGB Conc 32.1 g/dL (31.0-36.0); Mean Platelet Volume 10.6 fL (8.8-12.5); Monocytes # (Auto) 0.85 K/mcL (0.10-0.90); Monocytes % (Auto) 8.6 % (1.0-12.0); Neutrophils % (Auto) 60.2 % (38.0-78.0); Platelet Count 233 K/mcL (140-440); RBC 3.22 M/mcL (4.63-6.08); Red Cell Distribution Width 13.2 % (11.5-14.5); WBC 9.9 K/mcL (4.5-11.0)
[2022-05-30] MEDS: DOCUSATE SODIUM 100 MG CAPSULE PO SCH ×2 (08:36→20:38)
[2022-05-30] MEDS: SERTRALINE 100 MG TABLET PO SCH (08:37)
[2022-05-30] MEDS: TAMSULOSIN 0.4 MG CAPSULE PO SCH ×2 (08:37→20:38)
[2022-05-30] MEDS: VITAMIN D3 25 MCG TABLET PO SCH (08:37)
[2022-05-30] MEDS: ACYCLOVIR 400 MG TABLET PO SCH ×3 (08:37→20:38)
[2022-05-30] MEDS: Mirabegron 50 mg tablet extended release 24 hr PO SCH (08:37)
[2022-05-30] MEDS: MULTIVIT,THER IRON,CA,FA & MIN 1 TABLET PO SCH (08:37)
[2022-05-30] MEDS: PRIMIDONE 50 MG TABLET PO SCH ×3 (08:37→20:38)
[2022-05-30] MEDS ORDERED: VANCOMYCIN 1,500 MG in 0.9 % SODIUM CHLORIDE 500 ML IV SCH (09:00)
--- NOTE | 2022-05-30 10:43 | Internal Med Progress Note ---
SUBJECTIVE Subjective Patient information: Note initiated : 05/30/22 at 10:38 am Service Date, if different from initiated Date: [] Patient: Yunior Jo 76 y/o M admitted on 05/24/22 for Post op fever. 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 He has had COVID and been SOB since with "scarring" of his lungs. He has intermittently required oxygen. He presented with weakness, cough productive of yellow sputum x one month and SOB. His workukp in the ED included WBC 16, K 2.8, PCT 0.24. He was placed on zosyn. May 28, I have assumed care from the prior hospitalist. He has been recurrently febrile during the admission and no cultures were ordered. CTA Chest notes no pneumonia but does note pulmonary fibrosis (consistent with his stated Hx of covid with "scarring" and prior O2 use and presenting with hypoxia) and cardiomegaly.. He is now on room air. His surgical wound was modestly erythematous but without purulence. Sero-sanguinous drainage is noted. Abx changed overnight to cefepime/vanc. Ortho has not previously been consulted but has now seen patient and is monitoring. Will continue vanc/cefepime, monitor blood cultures and check echo. May 29, echo unremarkable, EF 60-65. Blood cultures NGTD. Pt was febrile again last night but WBC improved to 8.6. CT Pelvis notes no evidence of infection at the left hip surgical site, findings are most consistent with post-operative changes. Will stop IV Abx and monitor fever curve and WBC. Pt edematous from ABx fluids. Will give one dose furosemide. May 30, Abx stopped yesterday, essentially afebrile overnight. WBC 9.9. Will monitor one more day. Venous Duplex of legs ordered. Constitutional Vitals: Vital Signs Temp Pulse Resp BP Pulse Ox O2 Del Method O2 Flow Rate 98.7 F 64 20 136/74 93 Nasal Cannula 1 05/30/22 08:06 05/30/22 08:04 05/30/22 08:00 05/30/22 08:06 05/30/22 08:04 05/30/22 08:06 05/30/22 08:06 Period Temp Pulse Resp BP Sys/Edwards Pulse Ox O2 Del Method O2 Flow Rate Last 24 Hr 98.3 F-99.5 F 64-84 16-20 119-136/65-93 93-99 Nasal Cannula- Nasal Cannula 1-2 Intake and Output 05/29/22 05/30/22 05/30/22 19:59 03:59 11:59 Intake Total 900 380 790 Output Total 0 625 350 Balance -1150 -245 440 Weight 94.12 kg Intake & Output: Intake & Output 05/29/22 05/30/22 05/30/22 19:59 03:59 11:59 Intake Total 900 380 790 Output Total 0 625 350 Balance -1150 -245 440 Weight 94.12 kg Intake: Oral 900 380 790 Output: Void Amount 0 625 350 Urine/Stool Mix 200 Other: Meal Dinner Breakfast Percent of Meal Consumed 25% 100% Feeding Ability Assist with Tray Set Up Assist with Tray Set Up Urine Appearance Clear Clear Clear Urine Color Yellow Dark Yellow Yellow Pale Urine Odor Normal Normal Normal Stool Size Moderate Large Stool Color Brown Brown Stool Consistency Loose Loose # Bowel Movements 1 General appearance: no acute distress Head Head exam: Present atraumatic and normal inspection ENT ENT exam: Present mucous membranes moist Respiratory Respiratory exam: Present normal respiratory exam and CTAB Additional comments: scattered dry crackles Cardiovascular Cardiovascular exam: Present normal rate and rhythm GI/Abdominal GI/Abdominal exam: Present normal bowel sounds and soft Neurological Exam Neurological exam: Present CN II-XII intact and oriented X3 OBJ DATA Labs 05/30/22 05:27 05/30/22 05:27 Labs: Abnormal Lab Results 05/30/22 05/30/22 05/29/22 05:28 05:27 05:11 RBC 3.22 L Hgb 9.7 L Hct 30.2 L Immature Gran % (Auto) 1.4 H Eos % (Auto) 7.4 H Eos # (Auto) 0.73 H Immature Gran # 0.14 H PT 22.3 H INR 1.9 H Carbon Dioxide 31 H Anion Gap 7.0 L Glucose 106 H C-Reactive Protein Urine Mucus 05/29/22 05/29/22 05/28/22 05:11 05:06 07:07 RBC 3.21 L Hgb 9.8 L Hct 30.8 L Immature Gran % (Auto) 1.2 H Eos % (Auto) Eos # (Auto) Immature Gran # 0.10 H PT 19.2 H 19.2 H INR 1.5 H 1.6 H Carbon Dioxide Anion Gap Glucose C-Reactive Protein Urine Mucus 05/27/22 05/27/22 20:09 05:19 RBC Hgb Hct Immature Gran % (Auto) Eos % (Auto) Eos # (Auto) Immature Gran # PT INR Carbon Dioxide Anion Gap Glucose C-Reactive Protein 15.00 H Urine Mucus Few A Meds: Medications Acetaminophen (Acetaminophen 325 Mg Tablet) 650 mg PO Q6HP PRN; Protocol PRN Reason: Per Pain Protocol/Fever > 101 Last Admin: 05/29/22 00:55 Dose: 650 mg Hydrocodone Bitart/Acetaminophen (Hydrocodone/Apap 10/325mg Tablet) 1 - 2 tab PO Q4HP PRN; Protocol PRN Reason: Per Pain Protocol Last Admin: 05/29/22 17:30 Dose: 1 tab Acyclovir (Acyclovir 400 Mg Tablet) 400 mg PO TID [facility]; Protocol Last Admin: 05/30/22 08:37 Dose: 400 mg Albuterol/Ipratropium (Ipratropium/Albuterol 3 Ml Ampul.Neb) 3 ml NEB Q4HRT PRN PRN Reason: Wheezing Atorvastatin Calcium (Atorvastatin 40 Mg Tablet) 40 mg PO HS [facility] Last Admin: 05/29/22 21:20 Dose: 40 mg Calcium Carbonate/Glycine (Calcium Carbonate 500 Mg Tab.Chew) 500 mg CHEWED Q4HP PRN PRN Reason: Dyspepsia Cetirizine HCl (Cetirizine 10 Mg Tablet) 10 mg PO DAILYP PRN PRN Reason: Allergic Symptoms Last Admin: 05/28/22 10:39 Dose: 10 mg Docusate Sodium (Docusate Sodium 100 Mg Capsule) 100 mg PO BID [facility] Last Admin: 05/30/22 08:36 Dose: Not Given Gabapentin (Gabapentin 400 Mg Capsule) 800 mg PO QHS [facility] Last Admin: 05/29/22 21:20 Dose: 800 mg Gabapentin (Gabapentin 400 Mg Capsule) 400 mg PO BID@0800,1200 [facility] Last Admin: 05/30/22 07:52 Dose: 400 mg Guaifenesin (Guaifenesin/Dextromethorphan 5ml Ud Cup) 10 ml PO Q4HP PRN PRN Reason: Cough Hydromorphone HCl (Hydromorphone 0.5 Mg/0.5 Ml Syringe) 0.5 mg IV Q4HP PRN; Protocol PRN Reason: Per Pain Protocol Iron Carb/Multivit/[place]/Folic Acid (Multivit,Ther Iron,Ca,Fa & Min 1 Tablet) 1 tab PO DAILY [facility] Last Admin: 05/30/22 08:37 Dose: 1 tab Lactulose (Lactulose 20 Gm/30 Ml Oral.Cindy) 10 gm PO DAILYP PRN PRN Reason: Constipation Loperamide HCl (Loperamide 2 Mg Capsule) 2 mg PO PRN PRN PRN Reason: Diarrhea Last Admin: 05/28/22 10:39 Dose: 2 mg Melatonin (Melatonin 3 Mg Tablet) 9 mg PO HSP PRN PRN Reason: Sleep Nitroglycerin (Nitroglycerin 0.4 Mg Tab.Subl) 0.4 mg SL Q5M PRN PRN Reason: Angina Olanzapine (Olanzapine 2.5 Mg Tablet) 2.5 mg PO QHS [facility] Last Admin: 05/29/22 21:20 Dose: 2.5 mg Ondansetron HCl (Ondansetron 4 Mg/2 Ml Vial) 4 mg IV Q4HP PRN; Protocol PRN Reason: Nausea And Vomiting Mirabegron 50 Mg Tablet Extended Release 24 Hr 1 dose PO DAILY [facility] Last Admin: 05/30/22 08:37 Dose: 1 dose Potassium Chloride (Potassium Chloride 20 Meq Tablet) 40 meq PO BIDCC [facility] Last Admin: 05/30/22 07:51 Dose: 40 meq Primidone (Primidone 50 Mg Tablet) 50 mg PO TID [facility] Last Admin: 05/30/22 08:37 Dose: 50 mg Senna (Sennosides 1 Tablet) 2 tab PO HSP PRN PRN Reason: Constipation Sertraline HCl (Sertraline 100 Mg Tablet) 200 mg PO DAILY [facility] Last Admin: 05/30/22 08:37 Dose: 200 mg Sodium Chloride (0.9 % Sodium Chloride 10 Ml Syringe) 10 ml IV Q8 [facility] Last Admin: 05/30/22 05:19 Dose: 10 ml Tamsulosin HCl (Tamsulosin 0.4 Mg Capsule) 0.4 mg PO BID [facility] Last Admin: 05/30/22 08:37 Dose: 0.4 mg Vitamin D (Vitamin D3 25 Mcg Tablet) 50 mcg PO QDAY [facility] Last Admin: 05/30/22 08:37 Dose: 50 mcg Warfarin Sodium (Warfarin Per Pharmacy) 1 order PO UD [facility] Warfarin Sodium (Warfarin 7.5 Mg Tablet) 7.5 mg PO ONCE@1400 [facility] Stop: 05/30/22 14:01 A/P Assessment and plan (1) S/P total hip arthroplasty: Assessment and plan: - ortho now following - discontinue vanc/cefepime - monitor cultures and WBC - PT working with patient - now essentially afebrile - venous duplex ordered Status: Acute (2) Hypokalemia: Assessment and plan: - corrected Status: Acute (3) Pulmonary fibrosis: Assessment and plan: -likely secondary to covid - may need home o2 - no evidence of pneumonia Status: Acute (4) BPH (benign prostatic hypertrophy) with urinary obstruction: Assessment and plan: - continue tamsulosin Status: Chronic Time Spent With Patient Time: Total time spent is greater than 50% in coordination of care (as documented) at patient's floor/unit and/or counseling patient: QUALITY VTE Deep Vein Thrombosis/Pulmonary Embolism Present on Admission: Yes
[2022-05-30] MEDS: HYDROcodone/APAP 10/325MG TABLET PO PRN ×2 (11:26→19:43)
--- NOTE | 2022-05-30 12:09 | Ultrasound Report ---
CLINICAL INFORMATION: Swelling and erythema COMPARISON: None. FINDINGS: On the right, there is nonocclusive chronic thrombus in the common femoral and profunda femoral veins. The right popliteal trifurcation and calf veins are normal. On the left, there is subocclusive chronic thrombus in the left popliteal vein. The left trifurcation, superficial femoral and common femoral veins are patent. IMPRESSION: Subocclusive chronic thrombus in the left popliteal and [id number] the right common femoral and profunda femoral veins similar to previous exam Interpreted and Authenticated by: Diego Alvarado 05/30/22
--- NOTE | 2022-05-30 13:59 | Internal Med Progress Note ---
SUBJECTIVE Subjective Patient information: Note initiated : 05/30/22 at 1:54 pm Service Date, if different from initiated Date: [] Patient: Yunior Jo 76 y/o M admitted on 05/24/22 for Post op fever. 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 He has had COVID and been SOB since with "scarring" of his lungs. He has intermittently required oxygen. He presented with weakness, cough productive of yellow sputum x one month and SOB. His workukp in the ED included WBC 16, K 2.8, PCT 0.24. He was placed on zosyn. May 28, I have assumed care from the prior hospitalist. He has been recurrently febrile during the admission and no cultures were ordered. CTA Chest notes no pneumonia but does note pulmonary fibrosis (consistent with his stated Hx of covid with "scarring" and prior O2 use and presenting with hypoxia) and cardiomegaly.. He is now on room air. His surgical wound was modestly erythematous but without purulence. Sero-sanguinous drainage is noted. Abx changed overnight to cefepime/vanc. Ortho has not previously been consulted but has now seen patient and is monitoring. Will continue vanc/cefepime, monitor blood cultures and check echo. May 29, echo unremarkable, EF 60-65. Blood cultures NGTD. Pt was febrile again last night but WBC improved to 8.6. CT Pelvis notes no evidence of infection at the left hip surgical site, findings are most consistent with post-operative changes. Will stop IV Abx and monitor fever curve and WBC. Pt edematous from ABx fluids. Will give one dose furosemide. May 30, Abx stopped yesterday, essentially afebrile overnight. WBC 9.9. Will monitor one more day. Venous Duplex of legs ordered. 3/2 Review of Systems: denies headache/fever/chills/nausea/vomiting/chest or abdominal pain/cough/dyspnea/diarrhea. Otherwise see above. PHYSICAL EXAM: General: Alert, Awake, No acute Distress Eyes/N/T: EOMI, no scleral icterus, Head/Neck: neck supple, full ROM, CV: RRR, No murmurs, Pulm: scattered dry crackles, no wheezing, no respiratory distress Abd: soft, nontender, +BS x4 Ext: no clubbing/cyanosis/edema, nontender Neuro: Alert, no focal deficits, moves all extremities, sensations intact b/l upper/lower Psychiatric: Skin: warm/dry, normal color Constitutional Vitals: Vital Signs Temp Pulse Resp BP Pulse Ox O2 Del Method O2 Flow Rate 98.6 F 72 20 129/75 97 Nasal Cannula 2 05/30/22 11:37 05/30/22 11:37 05/30/22 11:37 05/30/22 11:37 05/30/22 11:37 05/30/22 11:37 05/30/22 11:37 Period Temp Pulse Resp BP Sys/Edwards Pulse Ox O2 Del Method O2 Flow Rate Last 24 Hr 98.3 F-99.5 F 64-84 16-20 119-136/65-93 93-97 Nasal Cannula- Nasal Cannula 1-2 Intake and Output 05/30/22 05/30/22 05/30/22 03:59 11:59 19:59 Intake Total 380 790 Output Total 625 750 Balance -245 40 Intake & Output: Intake & Output 05/30/22 05/30/22 05/30/22 03:59 11:59 19:59 Intake Total 380 790 Output Total 625 750 Balance -245 40 Intake: Oral 380 790 Output: Void Amount 625 750 Other: Meal Breakfast Percent of Meal Consumed 100% Feeding Ability Assist with Tray Set Up Urine Appearance Clear Clear Urine Color Dark Yellow Yellow Urine Odor Normal Normal Stool Size Large Moderate Stool Color Brown Brown Stool Consistency Loose Loose # Voids 1 # Bowel Movements 1 1 OBJ DATA Labs 05/30/22 05:27 05/30/22 05:27 Labs: Abnormal Lab Results 05/30/22 05/30/22 05/29/22 05:28 05:27 05:11 RBC 3.22 L Hgb 9.7 L Hct 30.2 L Immature Gran % (Auto) 1.4 H Eos % (Auto) 7.4 H Eos # (Auto) 0.73 H Immature Gran # 0.14 H PT 22.3 H INR 1.9 H Carbon Dioxide 31 H Anion Gap 7.0 L Glucose 106 H C-Reactive Protein Urine Mucus 05/29/22 05/29/22 05/28/22 05:11 05:06 07:07 RBC 3.21 L Hgb 9.8 L Hct 30.8 L Immature Gran % (Auto) 1.2 H Eos % (Auto) Eos # (Auto) Immature Gran # 0.10 H PT 19.2 H 19.2 H INR 1.5 H 1.6 H Carbon Dioxide Anion Gap Glucose C-Reactive Protein Urine Mucus 05/27/22 05/27/22 20:09 05:19 RBC Hgb Hct Immature Gran % (Auto) Eos % (Auto) Eos # (Auto) Immature Gran # PT INR Carbon Dioxide Anion Gap Glucose C-Reactive Protein 15.00 H Urine Mucus Few A Meds: Medications Acetaminophen (Acetaminophen 325 Mg Tablet) 650 mg PO Q6HP PRN; Protocol PRN Reason: Per Pain Protocol/Fever > 101 Last Admin: 05/29/22 00:55 Dose: 650 mg Hydrocodone Bitart/Acetaminophen (Hydrocodone/Apap 10/325mg Tablet) 1 - 2 tab PO Q4HP PRN; Protocol PRN Reason: Per Pain Protocol Last Admin: 05/30/22 11:26 Dose: 1 tab Acyclovir (Acyclovir 400 Mg Tablet) 400 mg PO TID [facility]; Protocol Last Admin: 05/30/22 08:37 Dose: 400 mg Albuterol/Ipratropium (Ipratropium/Albuterol 3 Ml Ampul.Neb) 3 ml NEB Q4HRT PRN PRN Reason: Wheezing Atorvastatin Calcium (Atorvastatin 40 Mg Tablet) 40 mg PO HS [facility] Last Admin: 05/29/22 21:20 Dose: 40 mg Calcium Carbonate/Glycine (Calcium Carbonate 500 Mg Tab.Chew) 500 mg CHEWED Q4HP PRN PRN Reason: Dyspepsia Cetirizine HCl (Cetirizine 10 Mg Tablet) 10 mg PO DAILYP PRN PRN Reason: Allergic Symptoms Last Admin: 05/28/22 10:39 Dose: 10 mg Docusate Sodium (Docusate Sodium 100 Mg Capsule) 100 mg PO BID [facility] Last Admin: 05/30/22 08:36 Dose: Not Given Gabapentin (Gabapentin 400 Mg Capsule) 800 mg PO QHS [facility] Last Admin: 05/29/22 21:20 Dose: 800 mg Gabapentin (Gabapentin 400 Mg Capsule) 400 mg PO BID@0800,1200 [facility] Last Admin: 05/30/22 11:26 Dose: 400 mg Guaifenesin (Guaifenesin/Dextromethorphan 5ml Ud Cup) 10 ml PO Q4HP PRN PRN Reason: Cough Hydromorphone HCl (Hydromorphone 0.5 Mg/0.5 Ml Syringe) 0.5 mg IV Q4HP PRN; Protocol PRN Reason: Per Pain Protocol Iron Carb/Multivit/Timber Estimator/Folic Acid (Multivit,Ther Iron,Ca,Fa & Min 1 Tablet) 1 tab PO DAILY [facility] Last Admin: 05/30/22 08:37 Dose: 1 tab Lactulose (Lactulose 20 Gm/30 Ml Oral.Cindy) 10 gm PO DAILYP PRN PRN Reason: Constipation Loperamide HCl (Loperamide 2 Mg Capsule) 2 mg PO PRN PRN PRN Reason: Diarrhea Last Admin: 05/28/22 10:39 Dose: 2 mg Melatonin (Melatonin 3 Mg Tablet) 9 mg PO HSP PRN PRN Reason: Sleep Nitroglycerin (Nitroglycerin 0.4 Mg Tab.Subl) 0.4 mg SL Q5M PRN PRN Reason: Angina Olanzapine (Olanzapine 2.5 Mg Tablet) 2.5 mg PO QHS [facility] Last Admin: 05/29/22 21:20 Dose: 2.5 mg Ondansetron HCl (Ondansetron 4 Mg/2 Ml Vial) 4 mg IV Q4HP PRN; Protocol PRN Reason: Nausea And Vomiting Mirabegron 50 Mg Tablet Extended Release 24 Hr 1 dose PO DAILY [facility] Last Admin: 05/30/22 08:37 Dose: 1 dose Potassium Chloride (Potassium Chloride 20 Meq Tablet) 40 meq PO BIDCC [facility] Last Admin: 05/30/22 07:51 Dose: 40 meq Primidone (Primidone 50 Mg Tablet) 50 mg PO TID [facility] Last Admin: 05/30/22 08:37 Dose: 50 mg Senna (Sennosides 1 Tablet) 2 tab PO HSP PRN PRN Reason: Constipation Sertraline HCl (Sertraline 100 Mg Tablet) 200 mg PO DAILY [facility] Last Admin: 05/30/22 08:37 Dose: 200 mg Sodium Chloride (0.9 % Sodium Chloride 10 Ml Syringe) 10 ml IV Q8 [facility] Last Admin: 05/30/22 05:19 Dose: 10 ml Tamsulosin HCl (Tamsulosin 0.4 Mg Capsule) 0.4 mg PO BID [facility] Last Admin: 05/30/22 08:37 Dose: 0.4 mg Vitamin D (Vitamin D3 25 Mcg Tablet) 50 mcg PO QDAY [facility] Last Admin: 05/30/22 08:37 Dose: 50 mcg Warfarin Sodium (Warfarin Per Pharmacy) 1 order PO UD [facility] Warfarin Sodium (Warfarin 7.5 Mg Tablet) 7.5 mg PO ONCE@1400 ONE Stop: 05/30/22 14:01 A/P Narrative A/P Narrative: Assessment and plan *S/P total hip arthroplasty: -ortho now following - discontinue vanc/cefepime - monitor cultures and WBC - PT working with patient - now essentially afebrile - venous duplex ordered *Hypokalemia: - corrected *Acute hypoxic respiratory failure: 2/2 pulmonary fibrosis -supp O2 -no PE on cta chest *Pulmonary fibrosis: likely secondary to covid - may need home o2 - no evidence of pneumonia *BPH (benign prostatic hypertrophy) with urinary obstruction: - continue tamsulosin *Neuropathy: On gabapentin *HTN: On HCTZ and lisinopril *Anxiety/depression on SSRI *Anemia, chronic: *h/o dvt/PE: *ppx: Warfarin per pharmacy Time Spent With Patient Time: Total time spent is greater than 50% in coordination of care (as documented) at patient's floor/unit and/or counseling patient: QUALITY VTE Deep Vein Thrombosis/Pulmonary Embolism Present on Admission: Yes
[2022-05-30] MEDS ORDERED: WARFARIN 7.5 MG TABLET PO ONE (14:00)
--- NOTE | 2022-05-30 15:09 | Discharge Summary ---
Discharge Provider Provider IMPORTANT FOLLOW-UP INFORMATION FOR PCP: Patient information: Note initiated : 05/30/22 at 3:07 pm Service Date, if different from initiated Date: [] Patient: Yunior Jo 76 y/o M admitted on 05/24/22 for Post op fever. 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 He has had COVID and been SOB since with "scarring" of his lungs. He has intermittently required oxygen. He presented with weakness, cough productive of yellow sputum x one month and SOB. His workukp in the ED included WBC 16, K 2.8, PCT 0.24. He was placed on zosyn. May 28, I have assumed care from the prior hospitalist. He has been recurrently febrile during the admission and no cultures were ordered. CTA Chest notes no pneumonia but does note pulmonary fibrosis (consistent with his stated Hx of covid with "scarring" and prior O2 use and presenting with hypoxia) and cardiomegaly.. He is now on room air. His surgical wound was modestly erythematous but without purulence. Sero-sanguinous drainage is noted. Abx garcia ged overnight to cefepime/vanc. Ortho has not previously been consulted but has now seen patient and is monitoring. Will continue vanc/cefepime, monitor blood cultures and check echo. May 29, echo unremarkable, EF 60-65. Blood cultures NGTD. Pt was febrile again last night but WBC improved to 8.6. CT Pelvis notes no evidence of infection at the left hip surgical site, findings are most consistent with post-operative changes. Will stop IV Abx and monitor fever curve and WBC. Pt edematous from ABx fluids. Will give one dose furosemide. May 30, Abx stopped yesterday, essentially afebrile overnight. WBC 9.9. Will monitor one more day. Venous Duplex of legs ordered. 05/31 Complains of diarrhea. As needed Imodium. Has had diarrhea since admission. Monitor oxygen. Trial on room air today. Venous Doppler with subocclusive DVTs similar to previous exams. 3/ Patient feeling better. Still having diarrhea. He says he does get this at home as well. Will check fecal WBCs. will transition pt to swing bed status. Assessment and plan *S/P total hip arthroplasty: -ortho following - PT working with patient *Hypokalemia: *Acute hypoxic respiratory failure: / pulmonary fibrosis -supp O2, currently room air while in bed -no PE on cta chest *Pulmonary fibrosis: likely secondary to covid -may needs home o2 - no evidence of pneumonia on f/u CT *BPH (benign prostatic hypertrophy) with urinary obstruction: - continue tamsulosin *Neuropathy: On gabapentin *HTN: On HCTZ and lisinopril *Anxiety/depression: on SSRI/Zyprexa *Anemia: *Diarrhea(pt states commonly gets at home) since admission: check fecal wbc -f/u cbc *h/o dvt/PE: - venous duplex ordered with subocclusive thrombus left popliteal and right common femoral and profunda veins Discharge diagnosis: Pulmonary fibrosis and acute on chronic hypoxic Secondary discharge diagnosis: Status post total hip arthroplasty hypokalemia BPH pulmonary fibrosis neuropathy hypertension anxiety pression anemia diarrhea Time Spent with Patient Time attestation: Total time spent providing and/or coordinating discharge services: Time spent: Greater than 30 minutes EXAM Constitutional Vitals: Temp Pulse Resp BP Pulse Ox O2 Del Method O2 Flow Rate 98.6 F 72 20 129/75 97 Nasal Cannula 2 05/30/22 11:37 05/30/22 11:37 05/30/22 11:37 05/30/22 11:37 05/30/22 11:37 05/30/22 11:37 05/30/22 11:37 Discharge Data Data Completed and Pending Labs on day of discharge: Labs from last 24 hours 05/30/22 05/30/22 05/30/22 05:28 05:27 05:27 WBC 9.9 RBC 3.22 L Hgb 9.7 L Hct 30.2 L MCV 93.8 MCH 30.1 MCHC 32.1 RDW 13.2 Plt Count 233 MPV 10.6 Immature Gran % (Auto) 1.4 H Neut % (Auto) 60.2 Lymph % (Auto) 21.8 Logan % (Auto) 8.6 Eos % (Auto) 7.4 H Baso % (Auto) 0.6 Lymph # (Auto) 2.15 Logan # (Auto) 0.85 Eos # (Auto) 0.73 H Baso # (Auto) 0.06 Immature Gran # 0.14 H Absolute Neutrophils 5.95 PT 22.3 H INR 1.9 H Sodium 138 Potassium 4.5 Chloride 98 Carbon Dioxide 28 Anion Gap 12.0 BUN 9 Creatinine 0.9 GFR Calculation 81 Glucose 104 Calcium 9.1 Preliminary micro results at discharge 05/27/22 18:12 Blood Culture - Preliminary Blood 05/27/22 18:12 Blood Culture - Preliminary Blood Discharge Plan Patient/Caregiver Discharge Instructions Activity: increase activity as tolerated Diet: Regular Diet Activity Restrictions/Additional Instructions: May need Home O2 for pulmonary fibrosis. Prescriptions: Continued lisinopril 10 mg tablet 10 mg PO QDAY hydrocodone-acetaminophen 7.5-325 mg tablet 1 tab PO BIDP PRN (Reason: Pain) Patient Comments: 1 tab PO BID PRN and at HS nitroglycerin [Nitrostat] 0.4 mg tablet, sublingual 0.4 mg SUBLINGUAL Q5M PRN (Reason: Angina) Patient Comments: 0.4 mg SUBLINGUAL PRN chest pain, can repeat at 5 min intervals to max of 3, ER if pain persists docusate sodium 100 mg capsule 100 - 200 mg PO DAILYP PRN (Reason: CONSTIPATION) Patient Comments: 1-2 capsules PO QDAY PRN cholecalciferol (vitamin D3) 1,000 unit tablet 2,000 unit PO QDAY glucosamine HCl 1,500 mg tablet 3,000 mg PO QDAY sertraline 100 mg tablet 200 mg PO QAM acetaminophen 325 mg tablet,chewable 1,300 mg PO HS gabapentin 400 mg Capsule 400 mg PO BID@0800,1200 gabapentin 400 mg Capsule 800 mg PO QHS cetirizine [Zyrtec] 10 mg Tablet 10 mg PO QDAY PRN (Reason: Allergic Symptoms) multivitamin Capsule 1 cap PO DAILY fiber Capsule 2 cap PO QHS melatonin 10 mg Tablet 20 mg PO HS MDD 1 PRN (Reason: Sleep) warfarin 7.5 mg Tablet 7.5 mg PO DAILY tamsulosin 0.4 mg capsule 0.4 mg PO BID warfarin 4 mg tablet 4 mg PO QDAY Qty: 5 0RF Rx Instructions: take for 5 days post op, then may resume home dose regimen of 7.5 mg. acyclovir 400 mg tablet 400 mg PO TIDP PRN (Reason: Cold Sores) hydrocodone-acetaminophen 10-325 mg Tablet 1 - 2 tab PO Q4HP PRN (Reason: Pain) olanzapine 2.5 mg tablet 2.5 mg PO QHS primidone 50 mg tablet 50 mg PO TID hydrochlorothiazide 25 mg tablet 50 mg PO DAILY potassium chloride 10 mEq capsule, extended release 10 meq PO BIDCC rosuvastatin 20 mg tablet 20 mg PO QDAY mirabegron 50 mg tablet extended release 24 hr 50 mg PO Q24H Qty: 30 6RF Follow Up Plan Follow up with: Steven Santana MD [Physician] - 06/07/22 8:10 am Stefany Lord MD [Primary Care Provider] - Patient Disposition: Xfer As Swing Bed ([facility]) Prognosis: Fair Rehab Potential: Fair I certify that the patient requires SNF services: Yes Overall status at discharge: patient is progressing back to baseline Discharge Orders: Discharge Order (Routine); Ordered 06/01/22 Ordered By: Wil Faria [facility] VTE Deep Vein Thrombosis/Pulmonary Embolism Present on Admission: Yes
--- NOTE | 2022-05-30 15:56 | Orthopedic Progress Note ---
SUBJECTIVE Subjective Patient information: Note initiated : 05/30/22 at 3:51 pm Service Date, if different from initiated Date: [] Patient: Yunior Jo 76 y/o M admitted on 05/24/22 for Post op fever. Chief Complaint: [] Interval history: feeling better, Constitutional Vitals: Vital Signs Temp Pulse Resp BP Pulse Ox O2 Del Method O2 Flow Rate 98.6 F 72 20 129/75 97 Nasal Cannula 2 05/30/22 11:37 05/30/22 11:37 05/30/22 11:37 05/30/22 11:37 05/30/22 11:37 05/30/22 11:37 05/30/22 11:37 Period Temp Pulse Resp BP Sys/Edwards Pulse Ox O2 Del Method O2 Flow Rate Last 24 Hr 98.3 F-99.5 F 64-84 16-20 119-136/65-93 93-97 Nasal Cannula- Nasal Cannula 1-2 Intake and Output 05/30/22 05/30/22 05/30/22 03:59 11:59 19:59 Intake Total 380 790 Output Total 625 750 150 Balance -245 40 -150 Weight 207 lb 8 oz Patient Weight 05/31/22 03:59 Weight 207 lb 8 oz Intake & Output: Intake & Output 05/30/22 05/30/22 05/30/22 03:59 11:59 19:59 Intake Total 380 790 Output Total 625 750 150 Balance -245 40 -150 Weight 207 lb 8 oz Intake: Oral 380 790 Output: Void Amount 625 750 150 Other: Meal Breakfast Percent of Meal Consumed 100% Feeding Ability Assist with Tray Set Up Urine Appearance Clear Clear Urine Color Dark Yellow Yellow Urine Odor Normal Normal Stool Size Large Moderate Stool Color Brown Brown Stool Consistency Loose Loose # Voids 1 # Bowel Movements 1 1 General appearance: no acute distress Extremities Exam Additional comments: redness of thigh decreased, drainage minimal serous on dressing from yesterday, no increased redness at incision OBJ DATA Labs 05/30/22 05:27 05/30/22 05:27 Labs: Abnormal Lab Results 05/30/22 05/30/22 05/29/22 05:28 05:27 05:11 RBC 3.22 L Hgb 9.7 L Hct 30.2 L Immature Gran % (Auto) 1.4 H Eos % (Auto) 7.4 H Eos # (Auto) 0.73 H Immature Gran # 0.14 H PT 22.3 H INR 1.9 H Carbon Dioxide 31 H Anion Gap 7.0 L Glucose 106 H C-Reactive Protein Urine Mucus 05/29/22 05/29/22 05/28/22 05:11 05:06 07:07 RBC 3.21 L Hgb 9.8 L Hct 30.8 L Immature Gran % (Auto) 1.2 H Eos % (Auto) Eos # (Auto) Immature Gran # 0.10 H PT 19.2 H 19.2 H INR 1.5 H 1.6 H Carbon Dioxide Anion Gap Glucose C-Reactive Protein Urine Mucus 05/27/22 05/27/22 20:09 05:19 RBC Hgb Hct Immature Gran % (Auto) Eos % (Auto) Eos # (Auto) Immature Gran # PT INR Carbon Dioxide Anion Gap Glucose C-Reactive Protein 15.00 H Urine Mucus Few A Meds: Medications Acetaminophen (Acetaminophen 325 Mg Tablet) 650 mg PO Q6HP PRN; Protocol PRN Reason: Per Pain Protocol/Fever > 101 Last Admin: 05/29/22 00:55 Dose: 650 mg Hydrocodone Bitart/Acetaminophen (Hydrocodone/Apap 10/325mg Tablet) 1 - 2 tab PO Q4HP PRN; Protocol PRN Reason: Per Pain Protocol Last Admin: 05/30/22 11:26 Dose: 1 tab Acyclovir (Acyclovir 400 Mg Tablet) 400 mg PO TID [facility]; Protocol Last Admin: 05/30/22 14:43 Dose: 400 mg Albuterol/Ipratropium (Ipratropium/Albuterol 3 Ml Ampul.Neb) 3 ml NEB Q4HRT PRN PRN Reason: Wheezing Atorvastatin Calcium (Atorvastatin 40 Mg Tablet) 40 mg PO HS [facility] Last Admin: 05/29/22 21:20 Dose: 40 mg Calcium Carbonate/Glycine (Calcium Carbonate 500 Mg Tab.Chew) 500 mg CHEWED Q4HP PRN PRN Reason: Dyspepsia Cetirizine HCl (Cetirizine 10 Mg Tablet) 10 mg PO DAILYP PRN PRN Reason: Allergic Symptoms Last Admin: 05/28/22 10:39 Dose: 10 mg Docusate Sodium (Docusate Sodium 100 Mg Capsule) 100 mg PO BID [facility] Last Admin: 05/30/22 08:36 Dose: Not Given Gabapentin (Gabapentin 400 Mg Capsule) 800 mg PO QHS [facility] Last Admin: 05/29/22 21:20 Dose: 800 mg Gabapentin (Gabapentin 400 Mg Capsule) 400 mg PO BID@0800,1200 [facility] Last Admin: 05/30/22 11:26 Dose: 400 mg Guaifenesin (Guaifenesin/Dextromethorphan 5ml Ud Cup) 10 ml PO Q4HP PRN PRN Reason: Cough Hydromorphone HCl (Hydromorphone 0.5 Mg/0.5 Ml Syringe) 0.5 mg IV Q4HP PRN; Protocol PRN Reason: Per Pain Protocol Iron Carb/Multivit/Kindergarten Classroom Teacher/Folic Acid (Multivit,Ther Iron,Ca,Fa & Min 1 Tablet) 1 tab PO DAILY [facility] Last Admin: 05/30/22 08:37 Dose: 1 tab Lactulose (Lactulose 20 Gm/30 Ml Oral.Cindy) 10 gm PO DAILYP PRN PRN Reason: Constipation Loperamide HCl (Loperamide 2 Mg Capsule) 2 mg PO PRN PRN PRN Reason: Diarrhea Last Admin: 05/28/22 10:39 Dose: 2 mg Melatonin (Melatonin 3 Mg Tablet) 9 mg PO HSP PRN PRN Reason: Sleep Nitroglycerin (Nitroglycerin 0.4 Mg Tab.Subl) 0.4 mg SL Q5M PRN PRN Reason: Angina Olanzapine (Olanzapine 2.5 Mg Tablet) 2.5 mg PO QHS [facility] Last Admin: 05/29/22 21:20 Dose: 2.5 mg Ondansetron HCl (Ondansetron 4 Mg/2 Ml Vial) 4 mg IV Q4HP PRN; Protocol PRN Reason: Nausea And Vomiting Mirabegron 50 Mg Tablet Extended Release 24 Hr 1 dose PO DAILY [facility] Last Admin: 05/30/22 08:37 Dose: 1 dose Potassium Chloride (Potassium Chloride 20 Meq Tablet) 40 meq PO BIDCC [facility] Last Admin: 05/30/22 07:51 Dose: 40 meq Primidone (Primidone 50 Mg Tablet) 50 mg PO TID [facility] Last Admin: 05/30/22 14:42 Dose: 50 mg Senna (Sennosides 1 Tablet) 2 tab PO HSP PRN PRN Reason: Constipation Sertraline HCl (Sertraline 100 Mg Tablet) 200 mg PO DAILY [facility] Last Admin: 05/30/22 08:37 Dose: 200 mg Sodium Chloride (0.9 % Sodium Chloride 10 Ml Syringe) 10 ml IV Q8 [facility] Last Admin: 05/30/22 14:42 Dose: 10 ml Tamsulosin HCl (Tamsulosin 0.4 Mg Capsule) 0.4 mg PO BID [facility] Last Admin: 05/30/22 08:37 Dose: 0.4 mg Vitamin D (Vitamin D3 25 Mcg Tablet) 50 mcg PO QDAY [facility] Last Admin: 05/30/22 08:37 Dose: 50 mcg Warfarin Sodium (Warfarin Per Pharmacy) 1 order PO UD [facility] A/P Assessment and plan (1) S/P total hip arthroplasty: Assessment and plan: -POD#7 readmitted for pneumonia, some concern for possible developing postop w ound infection however redness is improved, he has been afebrile, WBC is nl, incision w/o increased erythema Plan: -continue monitoring incision, would have SNF d/c genet at 14 days post op, can f/u w me 4-6 wks post op if progressing, sooner if worsening, ortho signing off for now Status: Acute Time Spent With Patient Time: Total time spent is greater than 50% in coordination of care (as documented) at patient's floor/unit and/or counseling patient:
[2022-05-30] MEDS: ATORVASTATIN 40 MG TABLET PO SCH (20:38)
[2022-05-30] MEDS: OLANZapine 2.5 MG TABLET PO SCH (20:38)
[2022-05-31] MEDS: 0.9 % SODIUM CHLORIDE 10 ML SYRINGE IV SCH ×3 (04:12→21:10)
[2022-05-31 06:27] LABS: Basophils # (Auto) 0.05 K/mcL (0.00-0.30); Basophils % (Auto) 0.5 % (0.0-2.0); Eosinophils # (Auto) 0.88 K/mcL (0.00-0.70); Hematocrit 29.5 % (40.1-51.0); Hemoglobin 9.2 g/dL (13.7-17.5); Lymphocytes # (Auto) 2.87 K/mcL (1.50-4.80); Mean Cell Volume 95.5 fL (80.0-100.0); Mean Corpuscular HGB Conc 31.2 g/dL (31.0-36.0); Mean Platelet Volume 9.7 fL (8.8-12.5); Monocytes # (Auto) 0.77 K/mcL (0.10-0.90); Platelet Count 236 K/mcL (140-440); RBC 3.09 M/mcL (4.63-6.08); Red Cell Distribution Width 13.2 % (11.5-14.5); WBC 11.1 K/mcL (4.5-11.0)
[2022-05-31 07:03] LABS: Prothrombin Time 23.3 sec (11.9-14.5)
--- NOTE | 2022-05-31 07:58 | Internal Med Progress Note ---
SUBJECTIVE Subjective Patient information: Note initiated : 05/31/22 at 7:55 am Service Date, if different from initiated Date: [] Patient: Yunior Jo 76 y/o M admitted on 05/24/22 for Post op fever. 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 He has had COVID and been SOB since with "scarring" of his lungs. He has intermittently required oxygen. He presented with weakness, cough productive of yellow sputum x one month and SOB. His workukp in the ED included WBC 16, K 2.8, PCT 0.24. He was placed on zosyn. May 28, I have assumed care from the prior hospitalist. He has been recurrently febrile during the admission and no cultures were ordered. CTA Chest notes no pneumonia but does note pulmonary fibrosis (consistent with his stated Hx of covid with "scarring" and prior O2 use and presenting with hypoxia) and cardiomegaly.. He is now on room air. His surgical wound was modestly erythematous but without purulence. Sero-sanguinous drainage is noted. Abx changed overnight to cefepime/vanc. Ortho has not previously been consulted but has now seen patient and is monitoring. Will continue vanc/cefepime, monitor blood cultures and check echo. May 29, echo unremarkable, EF 60-65. Blood cultures NGTD. Pt was febrile again last night but WBC improved to 8.6. CT Pelvis notes no evidence of infection at the left hip surgical site, findings are most consistent with post-operative changes. Will stop IV Abx and monitor fever curve and WBC. Pt edematous from ABx fluids. Will give one dose furosemide. May 30, Abx stopped yesterday, essentially afebrile overnight. WBC 9.9. Will monitor one more day. Venous Duplex of legs ordered. 3/2 Complains of diarrhea. As needed Imodium. Has had diarrhea since admission. Monitor oxygen. Trial on room air today. Venous Doppler with subocclusive DVTs similar to previous exams. Review of Systems: denies headache/fever/chills/nausea/vomiting/chest or abdominal pain/cough/dyspnea. Otherwise see above. PHYSICAL EXAM: General: Alert, Awake, No acute Distress Eyes/N/T: EOMI, no scleral icterus, Head/Neck: neck supple, full ROM, CV: RRR, No murmurs, Pulm: scattered dry crackles, no wheezing, no respiratory distress Abd: soft, nontender, +BS x4 Ext: no clubbing/cyanosis/edema, nontender Neuro: Alert, no focal deficits, moves all extremities, sensations intact b/l upper/lower Psychiatric: Skin: warm/dry, normal color Constitutional Vitals: Vital Signs Temp Pulse Resp BP Pulse Ox O2 Del Method O2 Flow Rate 98.2 F 75 18 132/73 95 Nasal Cannula 1 05/31/22 07:39 05/31/22 07:45 05/31/22 07:45 05/31/22 07:39 05/31/22 07:39 05/31/22 07:45 05/31/22 07:45 Period Temp Pulse Resp BP Sys/Edwards Pulse Ox O2 Del Method O2 Flow Rate Last 24 Hr 97.1 F-98.7 F 52-77 18-20 120-136/66-77 90-98 Nasal Cannula- Room Air 1-2 Intake and Output 05/30/22 05/31/22 05/31/22 19:59 03:59 11:59 Intake Total 590 300 Output Total 300 600 200 Balance 290 -600 100 Weight 94.12 kg 93.468 kg Intake & Output: Intake & Output 05/30/22 05/31/22 05/31/22 19:59 03:59 11:59 Intake Total 590 300 Output Total 300 600 200 Balance 290 -600 100 Weight 94.12 kg 93.468 kg Intake: Oral 590 300 Output: Void Amount 300 600 200 Other: Meal Dinner Percent of Meal Consumed 90 Urine Appearance Clear Urine Color Yellow Stool Size Moderate Moderate Stool Color Brown Brown Stool Consistency Loose Liquid Loose # Voids 1 # Bowel Movements 1 OBJ DATA Labs 05/31/22 05:06 05/30/22 05:27 Labs: Abnormal Lab Results 05/31/22 05/31/22 05/30/22 05:06 05:06 05:28 WBC 11.1 H RBC 3.09 L Hgb 9.2 L Hct 29.5 L Immature Gran % (Auto) 1.5 H Eos % (Auto) 8.0 H Eos # (Auto) 0.88 H Immature Gran # 0.17 H PT 23.3 H 22.3 H INR 2.0 H 1.9 H Carbon Dioxide Anion Gap Glucose 05/30/22 05/29/22 05/29/22 05:27 05:11 05:11 WBC RBC 3.22 L 3.21 L Hgb 9.7 L 9.8 L Hct 30.2 L 30.8 L Immature Gran % (Auto) 1.4 H 1.2 H Eos % (Auto) 7.4 H Eos # (Auto) 0.73 H Immature Gran # 0.14 H 0.10 H PT INR Carbon Dioxide 31 H Anion Gap 7.0 L Glucose 106 H 05/29/22 05:06 WBC RBC Hgb Hct Immature Gran % (Auto) Eos % (Auto) Eos # (Auto) Immature Gran # PT 19.2 H INR 1.5 H Carbon Dioxide Anion Gap Glucose Meds: Medications Acetaminophen (Acetaminophen 325 Mg Tablet) 650 mg PO Q6HP PRN; Protocol PRN Reason: Per Pain Protocol/Fever > 101 Last Admin: 05/29/22 00:55 Dose: 650 mg Hydrocodone Bitart/Acetaminophen (Hydrocodone/Apap 10/325mg Tablet) 1 - 2 tab PO Q4HP PRN; Protocol PRN Reason: Per Pain Protocol Last Admin: 05/30/22 19:43 Dose: 1 tab Acyclovir (Acyclovir 400 Mg Tablet) 400 mg PO TID [facility]; Protocol Last Admin: 05/30/22 20:38 Dose: 400 mg Albuterol/Ipratropium (Ipratropium/Albuterol 3 Ml Ampul.Neb) 3 ml NEB Q4HRT PRN PRN Reason: Wheezing Atorvastatin Calcium (Atorvastatin 40 Mg Tablet) 40 mg PO [facility] Last Admin: 05/30/22 20:38 Dose: 40 mg Calcium Carbonate/Glycine (Calcium Carbonate 500 Mg Tab.Chew) 500 mg CHEWED Q4HP PRN PRN Reason: Dyspepsia Cetirizine HCl (Cetirizine 10 Mg Tablet) 10 mg PO DAILYP PRN PRN Reason: Allergic Symptoms Last Admin: 05/28/22 10:39 Dose: 10 mg Docusate Sodium (Docusate Sodium 100 Mg Capsule) 100 mg PO BID [facility] Last Admin: 05/30/22 20:38 Dose: Not Given Gabapentin (Gabapentin 400 Mg Capsule) 800 mg PO QHS [facility] Last Admin: 05/30/22 20:38 Dose: 800 mg Gabapentin (Gabapentin 400 Mg Capsule) 400 mg PO BID@0800,1200 [facility] Last Admin: 05/30/22 11:26 Dose: 400 mg Guaifenesin (Guaifenesin/Dextromethorphan 5ml Ud Cup) 10 ml PO Q4HP PRN PRN Reason: Cough Hydromorphone HCl (Hydromorphone 0.5 Mg/0.5 Ml Syringe) 0.5 mg IV Q4HP PRN; Protocol PRN Reason: Per Pain Protocol Iron Carb/Multivit/Sierra/Folic Acid (Multivit,Ther Iron,Ca,Fa & Min 1 Tablet) 1 tab PO DAILY [facility] Last Admin: 05/30/22 08:37 Dose: 1 tab Lactulose (Lactulose 20 Gm/30 Ml Oral.Cindy) 10 gm PO DAILYP PRN PRN Reason: Constipation Loperamide HCl (Loperamide 2 Mg Capsule) 2 mg PO PRN PRN PRN Reason: Diarrhea Last Admin: 05/28/22 10:39 Dose: 2 mg Melatonin (Melatonin 3 Mg Tablet) 9 mg PO HSP PRN PRN Reason: Sleep Nitroglycerin (Nitroglycerin 0.4 Mg Tab.Subl) 0.4 mg SL Q5M PRN PRN Reason: Angina Olanzapine (Olanzapine 2.5 Mg Tablet) 2.5 mg PO QHS [facility] Last Admin: 05/30/22 20:38 Dose: 2.5 mg Ondansetron HCl (Ondansetron 4 Mg/2 Ml Vial) 4 mg IV Q4HP PRN; Protocol PRN Reason: Nausea And Vomiting Mirabegron 50 Mg Tablet Extended Release 24 Hr 1 dose PO DAILY [facility] Last Admin: 05/30/22 08:37 Dose: 1 dose Potassium Chloride (Potassium Chloride 20 Meq Tablet) 40 meq PO BIDCC [facility] Last Admin: 05/30/22 17:37 Dose: 40 meq Primidone (Primidone 50 Mg Tablet) 50 mg PO TID [facility] Last Admin: 05/30/22 20:38 Dose: 50 mg Senna (Sennosides 1 Tablet) 2 tab PO HSP PRN PRN Reason: Constipation Sertraline HCl (Sertraline 100 Mg Tablet) 200 mg PO DAILY [facility] Last Admin: 05/30/22 08:37 Dose: 200 mg Sodium Chloride (0.9 % Sodium Chloride 10 Ml Syringe) 10 ml IV Q8 [facility] Last Admin: 05/31/22 04:12 Dose: 10 ml Tamsulosin HCl (Tamsulosin 0.4 Mg Capsule) 0.4 mg PO BID [facility] Last Admin: 05/30/22 20:38 Dose: 0.4 mg Vitamin D (Vitamin D3 25 Mcg Tablet) 50 mcg PO QDAY [facility] Last Admin: 05/30/22 08:37 Dose: 50 mcg Warfarin Sodium (Warfarin Per Pharmacy) 1 order PO UD [facility] Warfarin Sodium (Warfarin 7.5 Mg Tablet) 7.5 mg PO ONCE@1400 ONE Stop: 05/31/22 14:01 A/P Narrative A/P Narrative: Assessment and plan *S/P total hip arthroplasty: -ortho following -discontinued vanc/cefepime - monitor cultures and WBC - PT working with patient - now afebrile *Hypokalemia: - corrected *Acute hypoxic respiratory failure: 2/2 pulmonary fibrosis -supp O2 -no PE on cta chest *Pulmonary fibrosis: likely secondary to covid -may needs home o2 - no evidence of pneumonia on f/u CT *BPH (benign prostatic hypertrophy) with urinary obstruction: - continue tamsulosin *Neuropathy: On gabapentin *HTN: On HCTZ and lisinopril *Anxiety/depression: on SSRI/Zyprexa *Anemia: *h/o dvt/PE: - venous duplex ordered with subocclusive thrombus left popliteal and right common femoral and profunda veins *ppx: Warfarin per pharmacy Time Spent With Patient Time: Total time spent is greater than 50% in coordination of care (as documented) at patient's floor/unit and/or counseling patient: Subsequent: Total time with patient: 35 - 49 minutes QUALITY VTE Deep Vein Thrombosis/Pulmonary Embolism Present on Admission: Yes
[2022-05-31] MEDS: POTASSIUM CHLORIDE 20 MEQ TABLET PO SCH (08:10)
[2022-05-31] MEDS: GABAPENTIN 400 MG CAPSULE PO SCH ×3 (08:11→20:09)
[2022-05-31] MEDS: DOCUSATE SODIUM 100 MG CAPSULE PO SCH (08:41)
[2022-05-31] MEDS: TAMSULOSIN 0.4 MG CAPSULE PO SCH ×2 (08:41→20:09)
[2022-05-31] MEDS: MULTIVIT,THER IRON,CA,FA & MIN 1 TABLET PO SCH (08:41)
[2022-05-31] MEDS: PRIMIDONE 50 MG TABLET PO SCH ×3 (08:42→20:09)
[2022-05-31] MEDS: ACYCLOVIR 400 MG TABLET PO SCH ×3 (08:42→20:09)
[2022-05-31] MEDS: VITAMIN D3 25 MCG TABLET PO SCH (08:42)
[2022-05-31] MEDS: Mirabegron 50 mg tablet extended release 24 hr PO SCH (08:42)
[2022-05-31] MEDS: SERTRALINE 100 MG TABLET PO SCH (08:42)
[2022-05-31] MEDS: HYDROcodone/APAP 10/325MG TABLET PO PRN ×2 (09:11→19:13)
[2022-05-31] MEDS ORDERED: WARFARIN 7.5 MG TABLET PO ONE (14:00)
[2022-05-31] MEDS: ATORVASTATIN 40 MG TABLET PO SCH (20:09)
[2022-05-31] MEDS: OLANZapine 2.5 MG TABLET PO SCH (20:09)
[2022-06-01] MEDS: HYDROmorphone 0.5 MG/0.5 ML SYRINGE IV PRN ×2 (04:37→13:39)
[2022-06-01] MEDS: MULTIVIT,THER IRON,CA,FA & MIN 1 TABLET PO SCH (08:04)
[2022-06-01] MEDS: VITAMIN D3 25 MCG TABLET PO SCH (08:04)
[2022-06-01] MEDS: GABAPENTIN 400 MG CAPSULE PO SCH ×2 (08:04→12:27)
[2022-06-01] MEDS: TAMSULOSIN 0.4 MG CAPSULE PO SCH (08:04)
[2022-06-01] MEDS: PRIMIDONE 50 MG TABLET PO SCH (08:04)
[2022-06-01] MEDS: SERTRALINE 100 MG TABLET PO SCH (08:05)
[2022-06-01] MEDS: ACYCLOVIR 400 MG TABLET PO SCH (08:05)
[2022-06-01] MEDS: Mirabegron 50 mg tablet extended release 24 hr PO SCH (08:07)
[2022-06-01] MEDS: 0.9 % SODIUM CHLORIDE 10 ML SYRINGE IV SCH ×2 (08:08→14:09)
[2022-06-01] MEDS: HYDROcodone/APAP 10/325MG TABLET PO PRN ×2 (08:12→12:28)
[2022-06-01 08:15] LABS: INR 1.9 (0.9-1.1); Prothrombin Time 22.8 sec (11.9-14.5)
--- NOTE | 2022-06-01 08:39 | Internal Med Progress Note ---
SUBJECTIVE Subjective Patient information: Note initiated : 06/01/22 at 8:37 am Service Date, if different from initiated Date: [] Patient: Yunior Jo 76 y/o M admitted on 05/24/22 for Post op fever. 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 He has had COVID and been SOB since with "scarring" of his lungs. He has intermittently required oxygen. He presented with weakness, cough productive of yellow sputum x one month and SOB. His workukp in the ED included WBC 16, K 2.8, PCT 0.24. He was placed on zosyn. May 28, I have assumed care from the prior hospitalist. He has been recurrently febrile during the admission and no cultures were ordered. CTA Chest notes no pneumonia but does note pulmonary fibrosis (consistent with his stated Hx of covid with "scarring" and prior O2 use and presenting with hypoxia) and cardiomegaly.. He is now on room air. His surgical wound was modestly erythematous but without purulence. Sero-sanguinous drainage is noted. Abx changed overnight to cefepime/vanc. Ortho has not previously been consulted but has now seen patient and is monitoring. Will continue vanc/cefepime, monitor blood cultures and check echo. May 29, echo unremarkable, EF 60-65. Blood cultures NGTD. Pt was febrile again last night but WBC improved to 8.6. CT Pelvis notes no evidence of infection at the left hip surgical site, findings are most consistent with post-operative changes. Will stop IV Abx and monitor fever curve and WBC. Pt edematous from ABx fluids. Will give one dose furosemide. May 30, Abx stopped yesterday, essentially afebrile overnight. WBC 9.9. Will monitor one more day. Venous Duplex of legs ordered. 2 Complains of diarrhea. As needed Imodium. Has had diarrhea since admission. Monitor oxygen. Trial on room air today. Venous Doppler with subocclusive DVTs similar to previous exams. 3/3 Patient feeling better. Still having diarrhea. He says he does get this at home as well. Will check fecal WBCs. Review of Systems: denies headache/fever/chills/nausea/vomiting/chest or abdominal pain/cough/dyspnea. Otherwise see above. PHYSICAL EXAM: General: Alert, Awake, No acute Distress Eyes/N/T: EOMI, no scleral icterus, Head/Neck: neck supple, full ROM, CV: RRR, No murmurs, Pulm: mildly diminished at bases, scattered dry crackles nearly resolved, no wheezing, no respiratory distress Abd: soft, nontender, +BS x4 Ext: no clubbing/cyanosis/edema, nontender Neuro: Alert, no focal deficits, moves all extremities, sensations intact b/l upper/lower Psychiatric: Skin: warm/dry, normal color Constitutional Vitals: Vital Signs Temp Pulse Resp BP Pulse Ox O2 Del Method O2 Flow Rate 98.5 F 89 20 131/79 94 Room Air 1 06/01/22 07:13 06/01/22 04:00 06/01/22 07:13 06/01/22 07:13 06/01/22 07:13 06/01/22 07:13 05/31/22 07:45 Period Temp Pulse Resp BP Sys/Edwards Pulse Ox O2 Del Method O2 Flow Rate Last 24 Hr 98.0 F-98.9 F 66-89 16-20 128-144/63-79 91-94 Room Air-Room Air Intake and Output 05/31/22 06/01/22 06/01/22 19:59 03:59 11:59 Intake Total 840 Output Total 300 305 400 Balance 540 -305 -400 Weight 95.209 kg Intake & Output: Intake & Output 05/31/22 06/01/22 06/01/22 19:59 03:59 11:59 Intake Total 840 Output Total 300 305 400 Balance 540 -305 -400 Weight 95.209 kg Intake: Oral 840 Output: Void Amount 300 305 400 Other: Meal Dinner Percent of Meal Consumed 80% Feeding Ability Assist with Tray Set Up Urine Appearance Clear Clear Urine Color Yellow Dark Yellow Urine Odor Normal Stool Size Large Stool Color Brown Stool Consistency Loose # Bowel Movements 1 OBJ DATA Labs 05/31/22 05:06 05/30/22 05:27 Labs: Abnormal Lab Results 06/01/22 05/31/22 05/31/22 05:30 05:06 05:06 WBC 11.1 H RBC 3.09 L Hgb 9.2 L Hct 29.5 L Immature Gran % (Auto) 1.5 H Eos % (Auto) 8.0 H Eos # (Auto) 0.88 H Immature Gran # 0.17 H PT 22.8 H 23.3 H INR 1.9 H 2.0 H 05/30/22 05/30/22 05/29/22 05:28 05:27 05:06 WBC RBC 3.22 L Hgb 9.7 L Hct 30.2 L Immature Gran % (Auto) 1.4 H Eos % (Auto) 7.4 H Eos # (Auto) 0.73 H Immature Gran # 0.14 H PT 22.3 H 19.2 H INR 1.9 H 1.5 H Meds: Medications Acetaminophen (Acetaminophen 325 Mg Tablet) 650 mg PO Q6HP PRN; Protocol PRN Reason: Per Pain Protocol/Fever > 101 Last Admin: 05/29/22 00:55 Dose: 650 mg Hydrocodone Bitart/Acetaminophen (Hydrocodone/Apap 10/325mg Tablet) 1 - 2 tab PO Q4HP PRN; Protocol PRN Reason: Per Pain Protocol Last Admin: 06/01/22 08:12 Dose: 1 tab Acyclovir (Acyclovir 400 Mg Tablet) 400 mg PO TID [facility]; Protocol Last Admin: 06/01/22 08:05 Dose: 400 mg Albuterol/Ipratropium (Ipratropium/Albuterol 3 Ml Ampul.Neb) 3 ml NEB Q4HRT PRN PRN Reason: Wheezing Atorvastatin Calcium (Atorvastatin 40 Mg Tablet) 40 mg PO HS [facility] Last Admin: 05/31/22 20:09 Dose: 40 mg Calcium Carbonate/Glycine (Calcium Carbonate 500 Mg Tab.Chew) 500 mg CHEWED Q4HP PRN PRN Reason: Dyspepsia Cetirizine HCl (Cetirizine 10 Mg Tablet) 10 mg PO DAILYP PRN PRN Reason: Allergic Symptoms Last Admin: 05/28/22 10:39 Dose: 10 mg Gabapentin (Gabapentin 400 Mg Capsule) 800 mg PO QHS [facility] Last Admin: 05/31/22 20:09 Dose: 800 mg Gabapentin (Gabapentin 400 Mg Capsule) 400 mg PO BID@0800,1200 [facility] Last Admin: 06/01/22 08:04 Dose: 400 mg Guaifenesin (Guaifenesin/Dextromethorphan 5ml Ud Cup) 10 ml PO Q4HP PRN PRN Reason: Cough Hydromorphone HCl (Hydromorphone 0.5 Mg/0.5 Ml Syringe) 0.5 mg IV Q4HP PRN; Protocol PRN Reason: Per Pain Protocol Last Admin: 06/01/22 04:37 Dose: 0.5 mg Iron Carb/Multivit/Fitter Hand/Folic Acid (Multivit,Ther Iron,Ca,Fa & Min 1 Tablet) 1 tab PO DAILY [facility] Last Admin: 06/01/22 08:04 Dose: 1 tab Lactulose (Lactulose 20 Gm/30 Ml Oral.Cindy) 10 gm PO DAILYP PRN PRN Reason: Constipation Loperamide HCl (Loperamide 2 Mg Capsule) 2 mg PO PRN PRN PRN Reason: Diarrhea Last Admin: 05/28/22 10:39 Dose: 2 mg Melatonin (Melatonin 3 Mg Tablet) 9 mg PO HSP PRN PRN Reason: Sleep Nitroglycerin (Nitroglycerin 0.4 Mg Tab.Subl) 0.4 mg SL Q5M PRN PRN Reason: Angina Olanzapine (Olanzapine 2.5 Mg Tablet) 2.5 mg PO QHS [facility] Last Admin: 05/31/22 20:09 Dose: 2.5 mg Ondansetron HCl (Ondansetron 4 Mg/2 Ml Vial) 4 mg IV Q4HP PRN; Protocol PRN Reason: Nausea And Vomiting Mirabegron 50 Mg Tablet Extended Release 24 Hr 1 dose PO DAILY [facility] Last Admin: 06/01/22 08:07 Dose: Not Given Primidone (Primidone 50 Mg Tablet) 50 mg PO TID [facility] Last Admin: 06/01/22 08:04 Dose: 50 mg Senna (Sennosides 1 Tablet) 2 tab PO HSP PRN PRN Reason: Constipation Sertraline HCl (Sertraline 100 Mg Tablet) 200 mg PO DAILY [facility] Last Admin: 06/01/22 08:05 Dose: 200 mg Sodium Chloride (0.9 % Sodium Chloride 10 Ml Syringe) 10 ml IV Q8 [facility] Last Admin: 06/01/22 08:08 Dose: 10 ml Tamsulosin HCl (Tamsulosin 0.4 Mg Capsule) 0.4 mg PO BID [facility] Last Admin: 06/01/22 08:04 Dose: 0.4 mg Vitamin D (Vitamin D3 25 Mcg Tablet) 50 mcg PO QDAY [facility] Last Admin: 06/01/22 08:04 Dose: 50 mcg Warfarin Sodium (Warfarin Per Pharmacy) 1 order PO [facility] [place] Warfarin Sodium (Warfarin 5 Mg Tablet) 10 mg PO DAILY@1400 [facility] Stop: 06/01/22 17:00 A/P Narrative A/P Narrative: Assessment and plan *S/P total hip arthroplasty: -ortho following -discontinued vanc/cefepime - monitor cultures and WBC - PT working with patient - now afebrile *Hypokalemia: - corrected *Acute hypoxic respiratory failure: 2/2 pulmonary fibrosis -supp O2, currently room air while in bed -no PE on cta chest *Pulmonary fibrosis: likely secondary to covid -may needs home o2 - no evidence of pneumonia on f/u CT *BPH (benign prostatic hypertrophy) with urinary obstruction: - continue tamsulosin *Neuropathy: On gabapentin *HTN: On HCTZ and lisinopril *Anxiety/depression: on SSRI/Zyprexa *Anemia: *Diarrhea(pt states commonly gets at home) since admission: check fecal wbc -f/u cbc *h/o dvt/PE: - venous duplex ordered with subocclusive thrombus left popliteal and right common femoral and profunda veins *ppx: Warfarin per pharmacy Time Spent With Patient Time: Total time spent is greater than 50% in coordination of care (as documented) at patient's floor/unit and/or counseling patient: Subsequent: Total time with patient: 35 - 49 minutes QUALITY VTE Deep Vein Thrombosis/Pulmonary Embolism Present on Admission: Yes
[2022-06-01 10:22] LABS: Hematocrit 31.9 % (40.1-51.0); Hemoglobin 10.3 g/dL (13.7-17.5); Mean Cell Volume 94.4 fL (80.0-100.0); Mean Corpuscular HGB Conc 32.3 g/dL (31.0-36.0); Mean Platelet Volume 9.7 fL (8.8-12.5); Platelet Count 288 K/mcL (140-440); RBC 3.38 M/mcL (4.63-6.08); Red Cell Distribution Width 13.2 % (11.5-14.5); WBC 11.4 K/mcL (4.5-11.0)
[2022-06-01 10:43] LABS: Eosinophils % (Manual) 11 % (0-7); Lymphocytes % 32 % (15-49); Monocytes % (Manual) 3 % (1-12); Myelocytes % 2 %; Platelet Estimate NORMAL (Normal); RBC Morphology NORMAL (Normal); Segmented Neutrophils % 52 % (38-78)
[2022-06-01] MEDS ORDERED: WARFARIN 5 MG TABLET PO SCH (14:00)
== END 2022-06-01 15:20 | disposition swing bed (61) | DRG 871 ==
LOC: ED 19:12 → ICU 23:45 → MEDSUR 05-31 17:46
PROVIDERS: ADMIT Internal Medicine; ATTEND Internal Medicine